=== PATIENT | female | born 1995 | race Caucasian/White ===

== ENCOUNTER 2016-04-17 22:25 | Emergency (ER) | payer OTHER ==
[~2016-04-17 22:25] MED LIST: ALBU83IN INH; COLA100C PO; MOTR200T44 PO; PULM0.25 INH; RANI1TAB6 PO; TUMS500C PO; TYLE500T78 PO; VITAPRTA PO; ZOFR20TA PO
[2016-04-17] MEDS ORDERED: ONDANSETRON 4 MG ORAL DISINTEGRATING TAB (S0181) As Ordered ONE (23:49)
--- NOTE | 2016-04-18 00:30 | EDDOCDS ---
Physician Documentation [facility] Name: Leila Sanchez Age: 20 yrs Sex: Female : 1995 Arrival Date: 04/17/2016 Time: 22:25 Bed TR7 Private MD: Zander Núñez Disposition: 04/17/16 23:43 Discharged to Home/Self Care. Impression: Vomiting, Diarrhea, unspecified. - Condition is Stable. - Discharge Instructions: Viral Gastroenteritis, [id number]. - Prescriptions for ZOFRAN ODT 4 mg - dissolve 1 tablet by ORAL route 4 times per day As needed do not chew, do not swallow whole; 10 tablet. - Medication Reconciliation, Local Pharmacy Hours form. - Follow up: Zander Núñez; When: 2 - 3 days; Reason: Further diagnostic work-up, Recheck today's complaints, Continuance of care. - Problem is new. - Symptoms are unchanged. Historical: - Allergies: Amoxicillin (Rash); Augmentin (Hives, Rash); cefdinir (Vomit); PENICILLINS (Rash); - Home Meds: 1. Strattera 60 mg oral cap 1 cap once daily 2. ranitidine HCl 150 mg Oral tbef daily 3. Depo-Provera 150 mg/mL IM syrg 1 mL every 3 mo 4. Ventolin Rotahaler/Rotacaps 200 mcg Inhl CpDv as needed 5. Pulmicort 0.5 mg/2 mL Inhl nbsp 2 mL 2 times per day - PMHx: ADHD; Asthma; GERD; - PSHx: Adenoidectomy; Tonsillectomy; D & C; Laparoscopy; - Social history: Smoking status: Patient uses tobacco products, light tobacco smoker. No barriers to communication noted, The patient speaks fluent Hebrew. - Family history: No immediate family members are acutely ill. - : The pt / caregiver states he / she is not on anticoagulants. Home medication list is obtained from the patient. - Exposure Risk Screening:: None identified. 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 4 in. (162.56 cm) (R); 22:27 Body Mass Index 35.36 (93.44 kg, 162.56 cm) dd6 MDM: 23:41 Ondansetron ODT Oral Disintegrating Tablet 4 mg PO once ordered. bt 04/18 00:13 Financial registration complete. ks16 00:13 [facility] Payment Agreement was scanned into [employer] and attached to record. ks16 Signatures: Paulina Box RN RN kmg1 Shanda Sawyer RN RN rs3 Segun Neville PA PA btw Olga Dinero, Reg Reg ks16 The chart was reviewed and I authenticate all verbal orders and agree with the evaluation and treatment provided.Attachments: 00:13 [facility] Payment Agreement ks16 MTDD
--- NOTE | 2016-04-18 00:30 | EDDOCDS ---
Nurse's Notes [facility] Name: Leila Sanchez Age: 20 yrs Sex: Female : 1995 Arrival Date: 04/17/2016 Time: 22:25 Bed TR7 Private MD: Zander Núñez Diagnosis: Vomiting;Diarrhea, unspecified Presentation: 04/17 22:28 Presenting complaint: Patient states: vomiting/diarrhea started 2 hrs ago. exposure to rs3 sick contact today. Adult Sepsis Screening: The patient does not have new or worsening altered mentation. Patient's respiratory rate is less than 22. Systolic blood pressure is greater than 100. Patient has a qSOFA score of 0- Negative Sepsis Screen. Suicide/Homicide risk assessment- the patient denies having any suicidal and/or homicidal ideations and does not present with any other emotional, behavioral or mental health complaints. Status: Patient is not a security services specialist or dependent. Transition of care: patient was not received from another setting of care. 22:28 Acuity: MANOHAR Level 4 rs3 22:28 Method Of Arrival: Walkin/Carried/Asstd rs3 Triage Assessment: 22:30 General: Appears in no apparent distress. Pain: Denies pain. HIV screening NA for this rs3 visit Offered previously. 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 Strattera 60 mg oral cap 1 cap once daily 2. ranitidine HCl 150 mg Oral tbef daily 3. Depo-Provera 150 mg/mL IM syrg 1 mL every 3 mo 4. Ventolin Rotahaler/Rotacaps 200 mcg Inhl CpDv as needed 5. Pulmicort 0.5 mg/2 mL Inhl nbsp 2 mL 2 times per day - PMHx: ADHD; Asthma; GERD; - PSHx: Adenoidectomy; Tonsillectomy; D & C; Laparoscopy; - Social history: Smoking status: Patient uses tobacco products, light tobacco smoker. No barriers to communication noted, The patient speaks fluent Arabic. - Family history: No immediate family members are acutely ill. - : The pt / caregiver states he / she is not on anticoagulants. Home medication list is obtained from the patient. - Exposure Risk Screening:: None identified. Screenin:52 Screening information is obtained from the patient. Fall risk: No risks identified. kmg1 Assistance ADL's: requires no assistance with activities of daily living. Abuse/DV Screen: The patient / caregiver reports he/she is: not in a situation that causes fear, pain or injury. Nutritional screening: No deficits noted. Advance Directives: There is no active DNR order. home support is adequate. Assessment: 23:52 General: Appears in no apparent distress, comfortable, Behavior is appropriate for age, kmg1 cooperative, pleasant. Pain: Denies pain. GI: Abdomen is non- distended Bowel sounds present X 4 quads. Abd is soft and non tender X 4 quads. Reports diarrhea, nausea, vomiting. Vital Signs: 22:27 BP 144 / 70; Pulse 111; Resp 18 S; Temp 97.8(O); Pulse Ox 99% on R/A; Weight 93.44 kg dd6 (R); Height 5 ft. 4 in. (162.56 cm) (R); 22:27 Body Mass Index 35.36 (93.44 kg, 162.56 cm) dd6 Vitals: 22:27 Log In Time: April 17, 2016 at 22:25. dd6 ED Course: 22:27 Patient visited by Declan Allison PCA. dd6 22:27 Zander Núñez is Private Physician. dd6 22:27 Patient moved to Waiting dd6 22:28 Patient moved to Pre RCE dd6 22:29 Triage Initiated rs3 23:40 Segun Neville PA is PHCP. btw 23:40 Ezra Andrea DO is Attending Physician. btw 23:40 Patient moved to Triage 2 btw 23:41 Patient visited by Segun Neville PA. btw 23:42 Zander Núñez is Referral Physician. btw 23:52 The patient / caregiver is instructed regarding the plan of care and ED course. kmg1 23:52 No IV's were initiated during this patient's visit. No procedures done that require kmg1 assistance. 23:58 Patient moved to [facility] km 04/18 00:13 [facility] Payment Agreement was scanned into [employer] and attached to record. ks16 Order Results: There are currently no results for this order. Outcome: 04/17 23:43 Discharge ordered by Provider. bt 23:52 Discharge Assessment: Patient awake, alert and oriented x 3. No cognitive and/or kmg1 functional deficits noted. Patient verbalized understanding of disposition instructions. Patient awake and alert. patient administered narcotics - no. The following High Risk Discharge criteria are identified: None. Discharged to home ambulatory. Condition: stable. Discharge instructions given to patient, Instructed on discharge instructions, follow up and referral plans. medication usage, diet, Demonstrated understanding of instructions, medications, Pt was receptive of discharge instructions/ teaching. Prescriptions given X 1. No special radiology studies were completed. Property sent home with patient. 04/18 00:29 Patient left the ED. [facility] Signatures: Paulina Box, RN RN kmg1 Declan Allison, GLAUCOMA SPECIALIST GLAUCOMA SPECIALIST dd6 Shanda Sawyer RN RN rs3 Segun Neville PA PA btw Olga Dinero, Reg Reg ks16 MTDD
--- NOTE | 2016-04-20 01:30 | EDDOCDS ---
Nurse's Notes [facility] [place] Name: Leila Sanchez Age: 20 yrs Sex: Female : 1995 Arrival Date: 04/17/2016 Time: 22:25 Bed TR7 Private MD: Zander Núñez Diagnosis: Vomiting;Diarrhea, unspecified Presentation: 04/17 22:28 Presenting complaint: Patient states: vomiting/diarrhea started 2 hrs ago. exposure to rs3 sick contact today. Adult Sepsis Screening: The patient does not have new or worsening altered mentation. Patient's respiratory rate is less than 22. Systolic blood pressure is greater than 100. Patient has a qSOFA score of 0- Negative Sepsis Screen. Suicide/Homicide risk assessment- the patient denies having any suicidal and/or homicidal ideations and does not present with any other emotional, behavioral or mental health complaints. Status: Patient is not a technical services specialist or dependent. Transition of care: patient was not received from another setting of care. 22:28 Acuity: MANOHAR Level 4 rs3 22:28 Method Of Arrival: Walkin/Carried/Asstd rs3 Triage Assessment: 22:30 General: Appears in no apparent distress. Pain: Denies pain. HIV screening NA for this rs3 visit Offered previously. 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 Strattera 60 mg oral cap 1 cap once daily 2. ranitidine HCl 150 mg Oral tbef daily 3. Depo-Provera 150 mg/mL IM syrg 1 mL every 3 mo 4. Ventolin Rotahaler/Rotacaps 200 mcg Inhl CpDv as needed 5. Pulmicort 0.5 mg/2 mL Inhl nbsp 2 mL 2 times per day - PMHx: ADHD; Asthma; GERD; - PSHx: Adenoidectomy; Tonsillectomy; D & C; Laparoscopy; - Social history: Smoking status: Patient uses tobacco products, light tobacco smoker. No barriers to communication noted, The patient speaks fluent Thai. - Family history: No immediate family members are acutely ill. - : The pt / caregiver states he / she is not on anticoagulants. Home medication list is obtained from the patient. - Exposure Risk Screening:: None identified. Screenin:52 Screening information is obtained from the patient. Fall risk: No risks identified. kmg1 Assistance ADL's: requires no assistance with activities of daily living. Abuse/DV Screen: The patient / caregiver reports he/she is: not in a situation that causes fear, pain or injury. Nutritional screening: No deficits noted. Advance Directives: There is no active DNR order. home support is adequate. Assessment: 23:52 General: Appears in no apparent distress, comfortable, Behavior is appropriate for age, kmg1 cooperative, pleasant. Pain: Denies pain. GI: Abdomen is non- distended Bowel sounds present X 4 quads. Abd is soft and non tender X 4 quads. Reports diarrhea, nausea, vomiting. Vital Signs: 22:27 BP 144 / 70; Pulse 111; Resp 18 S; Temp 97.8(O); Pulse Ox 99% on R/A; Weight 93.44 kg dd6 (R); Height 5 ft. 4 in. (162.56 cm) (R); 22:27 Body Mass Index 35.36 (93.44 kg, 162.56 cm) dd6 Vitals: 22:27 Log In Time: April 17, 2016 at 22:25. dd6 ED Course: 22:27 Patient visited by Declan Allison PCA. dd6 22:27 Zander Núñez is Private Physician. dd6 22:27 Patient moved to Waiting dd6 22:28 Patient moved to Pre RCE dd6 22:29 Triage Initiated rs3 23:40 Segun Neville PA is PHCP. btw 23:40 Ezra Andrea DO is Attending Physician. btw 23:40 Patient moved to Triage 2 btw 23:41 Patient visited by Segun Neville PA. btw 23:42 Zander Núñez is Referral Physician. btw 23:52 The patient / caregiver is instructed regarding the plan of care and ED course. kmg1 23:52 No IV's were initiated during this patient's visit. No procedures done that require kmg1 assistance. 23:58 Patient moved to [place] [id number] 04/18 00:13 [facility] Payment Agreement was scanned into [employer] and attached to record. ks16 21:00 T-Sheet-- Draft Copy was scanned into [employer] and attached to record. klr Order Results: There are currently no results for this order. Outcome: 04/17 23:43 Discharge ordered by Provider. [facility] 23:52 Discharge Assessment: Patient awake, alert and oriented x 3. No cognitive and/or kmg1 functional deficits noted. Patient verbalized understanding of disposition instructions. Patient awake and alert. patient administered narcotics - no. The following High Risk Discharge criteria are identified: None. Discharged to home ambulatory. Condition: stable. Discharge instructions given to patient, Instructed on discharge instructions, follow up and referral plans. medication usage, diet, Demonstrated understanding of instructions, medications, Pt was receptive of discharge instructions/ teaching. Prescriptions given X 1. No special radiology studies were completed. Property sent home with patient. 04/18 00:29 Patient left the ED. kmg1 Signatures: Paulina Box, RN RN kmg1 Declan Allison, PORTABLE SAWMILL OPERATOR PORTABLE SAWMILL OPERATOR dd6 Shanda SawyerRN RN rs3 Segun Neville PA PA btw Olga Dinero, Reg Reg ks16 Ceci Nath klr Chart Complete PAIGED
--- NOTE | 2016-04-20 01:30 | EDDOCDS ---
Physician Documentation [facility] Name: Leila Sanchez Age: 20 yrs Sex: Female : 1995 Arrival Date: 04/17/2016 Time: 22:25 Bed TR7 Private MD: Zander Núñez Disposition: 04/17/16 23:43 Discharged to Home/Self Care. Impression: Vomiting, Diarrhea, unspecified. - Condition is Stable. - Discharge Instructions: Viral Gastroenteritis, [id number]. - Prescriptions for ZOFRAN ODT 4 mg - dissolve 1 tablet by ORAL route 4 times per day As needed do not chew, do not swallow whole; 10 tablet. - Medication Reconciliation, Local Pharmacy Hours form. - Follow up: Zander Núñez; When: 2 - 3 days; Reason: Further diagnostic work-up, Recheck today's complaints, Continuance of care. - Problem is new. - Symptoms are unchanged. Historical: - Allergies: Amoxicillin (Rash); Augmentin (Hives, Rash); cefdinir (Vomit); PENICILLINS (Rash); - Home Meds: 1. Strattera 60 mg oral cap 1 cap once daily 2. ranitidine HCl 150 mg Oral tbef daily 3. Depo-Provera 150 mg/mL IM syrg 1 mL every 3 mo 4. Ventolin Rotahaler/Rotacaps 200 mcg Inhl CpDv as needed 5. Pulmicort 0.5 mg/2 mL Inhl nbsp 2 mL 2 times per day - PMHx: ADHD; Asthma; GERD; - PSHx: Adenoidectomy; Tonsillectomy; D & C; Laparoscopy; - Social history: Smoking status: Patient uses tobacco products, light tobacco smoker. No barriers to communication noted, The patient speaks fluent Hungarian. - Family history: No immediate family members are acutely ill. - : The pt / caregiver states he / she is not on anticoagulants. Home medication list is obtained from the patient. - Exposure Risk Screening:: None identified. 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 4 in. (162.56 cm) (R); 22:27 Body Mass Index 35.36 (93.44 kg, 162.56 cm) dd6 MDM: 23:41 Ondansetron ODT Oral Disintegrating Tablet 4 mg PO once ordered. bt 04/18 00:13 Financial registration complete. ks16 00:13 [facility] Payment Agreement was scanned into [employer] and attached to record. ks16 21:00 T-Sheet-- Draft Copy was scanned into [employer] and attached to record. klr Signatures: Paulina Box, RN RN kmg1 Shanda SawyerRN RN rs3 Segun Neville PA PA btw Olga Dinero, Reg Reg ks16 Ceci Nath The chart was reviewed and I authenticate all verbal orders and agree with the evaluation and treatment provided.Attachments: 00:13 [facility] Payment Agreement ks16 21:00 T-Sheet-- Draft Copy klr Chart Complete MTDD
--- NOTE | 2016-04-20 01:30 | EDDOCDS ---
Physician Documentation [facility] Name: Leila Sanchez Age: 20 yrs Sex: Female : 1995 Arrival Date: 04/17/2016 Time: 22:25 Bed TR7 Private MD: Zander Núñez Disposition: 04/17/16 23:43 Discharged to Home/Self Care. Impression: Vomiting, Diarrhea, unspecified. - Condition is Stable. - Discharge Instructions: Viral Gastroenteritis, [id number]. - Prescriptions for ZOFRAN ODT 4 mg - dissolve 1 tablet by ORAL route 4 times per day As needed do not chew, do not swallow whole; 10 tablet. - Medication Reconciliation, Local Pharmacy Hours form. - Follow up: Zander Núñez; When: 2 - 3 days; Reason: Further diagnostic work-up, Recheck today's complaints, Continuance of care. - Problem is new. - Symptoms are unchanged. Historical: - Allergies: Amoxicillin (Rash); Augmentin (Hives, Rash); cefdinir (Vomit); PENICILLINS (Rash); - Home Meds: 1. Strattera 60 mg oral cap 1 cap once daily 2. ranitidine HCl 150 mg Oral tbef daily 3. Depo-Provera 150 mg/mL IM syrg 1 mL every 3 mo 4. Ventolin Rotahaler/Rotacaps 200 mcg Inhl CpDv as needed 5. Pulmicort 0.5 mg/2 mL Inhl nbsp 2 mL 2 times per day - PMHx: ADHD; Asthma; GERD; - PSHx: Adenoidectomy; Tonsillectomy; D & C; Laparoscopy; - Social history: Smoking status: Patient uses tobacco products, light tobacco smoker. No barriers to communication noted, The patient speaks fluent Vietnamese. - Family history: No immediate family members are acutely ill. - : The pt / caregiver states he / she is not on anticoagulants. Home medication list is obtained from the patient. - Exposure Risk Screening:: None identified. 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 4 in. (162.56 cm) (R); 22:27 Body Mass Index 35.36 (93.44 kg, 162.56 cm) dd6 MDM: 23:41 Ondansetron ODT Oral Disintegrating Tablet 4 mg PO once ordered. bt 04/18 00:13 Financial registration complete. ks16 00:13 [facility] Payment Agreement was scanned into [employer] and attached to record. ks16 21:00 T-Sheet-- Draft Copy was scanned into [employer] and attached to record. klr Signatures: Paulina Box, RN RN kmg1 Shanda SawyerRN RN rs3 Segun Neville PA PA btw Olga Dinero, Reg Reg ks16 Ceci Nath The chart was reviewed and I authenticate all verbal orders and agree with the evaluation and treatment provided.Attachments: 00:13 [facility] Payment Agreement ks16 21:00 T-Sheet-- Draft Copy klr Chart Complete MTDD
== END 2016-04-18 00:29 | disposition home or self-care (01) ==
LOC: M ED 22:25
DX: R11.2 Nausea with vomiting, unspecified (principal); R19.7 Diarrhea, unspecified; K21.9 Gastro-esophageal reflux disease without esophagitis; F90.9 Attention-deficit hyperactivity disorder, unspecified type; J45.909 Unspecified asthma, uncomplicated; Z90.89 Acquired absence of other organs; F17.200 Nicotine dependence, unspecified, uncomplicated; Z79.3 Long term (current) use of hormonal contraceptives; Z79.51 Long term (current) use of inhaled steroids; Z79.899 Other long term (current) drug therapy; Z88.1 Allergy status to other antibiotic agents; Z88.8 Allergy status to other drugs, medicaments and biological substances

== ENCOUNTER 2016-04-26 23:24 | Emergency (ER) | payer OTHER ==
[2016-04-27] MEDS ORDERED: ONDANSETRON 4 MG ORAL DISINTEGRATING TAB (S0181) As Ordered ONE (01:36)
[2016-04-27] MEDS ORDERED: DOXYCYCLINE HYCLATE 100 MG TAB As Ordered ONE (02:14)
--- NOTE | 2016-04-27 02:50 | EDDOCDS ---
Physician Documentation [facility] Name: Leila Sanchez Age: 20 yrs Sex: Female : 1995 Arrival Date: 04/26/2016 Time: 23:24 Bed I3 / M3 Private MD: Amol Hernandez Disposition: 04/27/16 02:38 Discharged to Home/Self Care. Impression: Other acute sinusitis, Vomiting. - Condition is Stable. - Discharge Instructions: Nausea and Vomiting, Sinusitis, Adult. - Prescriptions for Doxycycline Monohydrate 100 mg Oral Tablet - take 1 tablet by ORAL route every 12 hours for 10 days; 20 tablet. ZOFRAN ODT 4 mg - dissolve 1 tablet by ORAL route 4 times per day As needed do not chew, do not swallow whole; 10 tablet. Fluticasone 50 mcg/actuation Nasal [place], Suspension - inhale 2 spray by INTRANASAL route once daily; 1 bottle. - Medication Reconciliation, Local Pharmacy Hours form. - Follow up: [facility] ; When: 2 - 3 days; Reason: Recheck today's complaints, Continuance of care. - Problem is new. - Symptoms have improved. - Notes: USE MEDICATIONS INSTRUCTED, FOLLOW UP WITH YOUR DOCTOR, RETURN TO THE ER IF THE SYMPTOMS WORSEN OR BECOME CONCERNING Historical: - Allergies: Amoxicillin (Rash); Augmentin (Hives, Rash); cefdinir (Vomit); PENICILLINS (Rash); - Home Meds: 1. Depo-Provera 150 mg/mL IM syrg 1 mL every 3 mo 2. ranitidine HCl 150 mg oral tab 1 tab once daily 3. Strattera 60 mg oral cap 1 cap once daily 4. abreva inhaler 5. Zoloft 50 mg Oral tab 1 tab once daily 6. Ventolin Rotahaler/Rotacaps 200 mcg Inhl CpDv as needed 7. Vitamin Oral tab - PMHx: ADHD; Asthma; GERD; - PSHx: Adenoidectomy; Tonsillectomy; D & C; Laparoscopy; - Social history: Smoking status: Patient uses tobacco products, current every day smoker. No barriers to communication noted, The patient speaks fluent [place]ican, Speaks appropriately for age, Preferred Language: [place]ican. - Family history: Not pertinent. - : The pt / caregiver states he / she is not on anticoagulants. Home medication list is obtained from the patient. - Exposure Risk Screening:: None identified. 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 4 in. (162.56 cm) (R); Pain 0/10; 04/27 01:44 BP 119 / 60 Supine; Pulse 73; Resp 18; Pulse Ox 96% on R/A; jmb 01:44 BP 125 / 69 Sitting; Pulse 88; Resp 18; Pulse Ox 98% on R/A; jmb 01:44 BP 137 / 63 Standing; Pulse 86; Resp 18; Pulse Ox 97% on R/A; jmb 02:40 BP 134 / 71; Pulse 84; Resp 18; Temp 98.9; Pulse Ox 98% ; Pain 0/10; ajs 04/26 23:26 Body Mass Index 35.36 (93.44 kg, 162.56 cm) ct3 MDM: 01:29 Financial registration complete. pm4 01:32 UCG by Nursing ordered. ck7 01:32 Orthostatic VS ordered. ck7 01:35 Ondansetron ODT Oral Disintegrating Tablet 4 mg PO once ordered. ck7 02:01 Fluid Challenge ordered. ck7 02:12 Doxycycline 100 mg PO once ordered. ck7 02:32 Ambulate Patient to Assess Patient Safety ordered. ck7 02:37 [facility] Payment Agreement was scanned into [employer] and attached to record. pm4 Point of Care Testing: Urine : 01:47 hCG Reading: Negative; Control Reading: Positive; slm Ranges: Administered Medications: 01:35 CANCELLED (Other Intervention Used): Ondansetron 4 mg IVP once ck7 01:38 Drug: Ondansetron ODT 4 mg [ondansetron 4 mg disintegrating tablet (1 tabs)] Route: PO; slm 02:16 Drug: Doxycycline 100 mg [doxycycline hyclate 100 mg tablet (1 tabs)] Route: PO; jmb Signatures: Linda Palacio RN RN lf1 Alexander Lau RPA-C RPA-[facility]7 Joshua Beltran,RN RN Chris Stephens, Reg Reg pm4 Adelaide Aldrich LPN The chart was reviewed and I authenticate all verbal orders and agree with the evaluation and treatment provided.Corrections: (The following items were deleted from the chart) 01:35 01:32 Ondansetron 4 mg IVP once ordered. ck7 ck7 Attachments: 02:37 [facility] Payment Agreement pm4 MTDD
--- NOTE | 2016-04-27 02:51 | EDDOCDS ---
Nurse's Notes [facility] Name: Leila Sanchez Age: 20 yrs Sex: Female : 1995 Arrival Date: 04/26/2016 Time: 23:24 Bed I3 / M3 Private MD: Amol Hernandez Diagnosis: Other acute sinusitis;Vomiting Presentation: 04/26 23:33 Presenting complaint: Patient states: Pt reports dizziness, and pain in right ear with lf1 shakiness and vomiting that started 45 minutes ago. No abdominal pain or shortness of breath. Presenting complaint:. Adult Sepsis Screening: The patient does not have new or worsening altered mentation. Patient's respiratory rate is less than 22. Systolic blood pressure is greater than 100. Patient has a qSOFA score of 0- Negative Sepsis Screen. Suicide/Homicide risk assessment- the patient denies having any suicidal and/or homicidal ideations and does not present with any other emotional, behavioral or mental health complaints. 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 Transition of care: patient was not received from another setting of care. 23:33 Acuity: MANOHAR Level 4 lf1 23:33 Method Of Arrival: Walkin/Carried/Asstd lf1 Triage Assessment: 23:37 General: Appears in no apparent distress, comfortable, Behavior is cooperative. Pain: lf1 Location: right ear Pain currently is 4 out of 10 on a pain scale. HIV screening NA for this visit Offered previously. Neurological: Level of Consciousness is awake, alert, Oriented to person, place, time, Reports dizziness. EENT: Reports pain in right ear. Respiratory: Respiratory effort is even, unlabored. GI: Reports nausea. Derm: Skin is normal. Injury Description: No known injury. 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 Depo-Provera 150 mg/mL IM syrg 1 mL every 3 mo 2. ranitidine HCl 150 mg oral tab 1 tab once daily 3. Strattera 60 mg oral cap 1 cap once daily 4. abreva inhaler 5. Zoloft 50 mg Oral tab 1 tab once daily 6. Ventolin Rotahaler/Rotacaps 200 mcg Inhl CpDv as needed 7. Vitamin Oral tab - PMHx: ADHD; Asthma; GERD; - PSHx: Adenoidectomy; Tonsillectomy; D & C; Laparoscopy; - Social history: Smoking status: Patient uses tobacco products, current every day smoker. No barriers to communication noted, The patient speaks fluent Tunisian, Speaks appropriately for age, Preferred Language: Tunisian. - Family history: Not pertinent. - : The pt / caregiver states he / she is not on anticoagulants. Home medication list is obtained from the patient. - Exposure Risk Screening:: None identified. Screenin:39 Screening information is obtained from the patient. Fall risk: No risks identified. lf1 Assistance ADL's: requires no assistance with activities of daily living. Abuse/DV Screen: The patient / caregiver reports he/she is: not in a situation that causes fear, pain or injury. Nutritional screening: No deficits noted. Advance Directives: Currently, there is no health care proxy. home support is adequate. Assessment: 04/27 01:47 General: Appears in no apparent distress, comfortable, Behavior is appropriate for age, jmb cooperative. Neurological: Level of Consciousness is awake, alert, obeys commands, Oriented to person, place, time, Speech is normal, Facial symmetry appears normal, Facial symmetry: tongue is midline. Cardiovascular: Capillary refill < 3 seconds Heart tones S1 S2 present Pulses are all present. Rhythm is regular. Respiratory: Airway is patent Respiratory effort is even, unlabored, Respiratory pattern is regular, symmetrical, Breath sounds are clear bilaterally. GI: Abdomen is obese, Bowel sounds present X 4 quads. Abd is soft and non tender X 4 quads. Derm: Skin is pink, warm & dry. Musculoskeletal: Range of motion intact in all extremities. 02:43 Adult Sepsis Screening: The patient does not have new or worsening altered mentation. lf1 Patient's respiratory rate is less than 22. Systolic blood pressure is greater than 100. Patient has a qSOFA score of 0- Negative Sepsis Screen. General: Appears in no apparent distress, comfortable, Behavior is cooperative, First patient contact. Pain: Denies pain. Neurological: Level of Consciousness is awake, alert, Oriented to person, place, time. EENT: No deficits noted. Respiratory: Respiratory effort is even, unlabored. GI: Denies nausea, vomiting. Derm: Skin is normal. Injury Description: No known injury. Vital Signs: 04/26 23:26 BP 144 / 71; Pulse 96; Resp 18; Temp 98.9(O); Pulse Ox 99% on R/A; Weight 93.44 kg (R); ct3 Height 5 ft. 4 in. (162.56 cm) (R); Pain 0/10; 04/27 01:44 BP 119 / 60 Supine; Pulse 73; Resp 18; Pulse Ox 96% on R/A; jmb 01:44 BP 125 / 69 Sitting; Pulse 88; Resp 18; Pulse Ox 98% on R/A; jmb 01:44 BP 137 / 63 Standing; Pulse 86; Resp 18; Pulse Ox 97% on R/A; jmb 02:40 BP 134 / 71; Pulse 84; Resp 18; Temp 98.9; Pulse Ox 98% ; Pain 0/10; ajs 04/26 23:26 Body Mass Index 35.36 (93.44 kg, 162.56 cm) ct3 Vitals: 04/26 23:26 Log In Time: April 26, 2016 at 23:23. ct3 ED Course: 23:25 Patient visited by Shanna Wynn PCA. ct3 23:25 Patient moved to Waiting ct3 23:26 [facility] is Private Physician. ct3 23:27 Patient moved to Pre RCE ct3 23:35 Triage Initiated lf1 02/07 00:02 Patient moved to MTA Wait sls1 00:36 Patient moved to I3 / M3 ajs 01:09 Alexander Lau RPA-C is PHCP. ck7 01:09 Bernard David DO is Attending Physician. ck7 01:09 Patient visited by Alexander Lau RPA-C. ck7 01:46 Patient visited by Alexander Lau RPA-C. ck7 01:47 Patient visited by Adelaide Aldrich LPN. slm 02:31 Patient visited by Alexander Lau RPA-C. ck7 02:37 [facility] Payment Agreement was scanned into [employer] and attached to record. pm4 02:38 [facility] is Referral Physician. ck7 02:41 Patient visited by Michelle Mccormack. ajs 02:43 Patient visited by Linda Palacio RN. lf1 02:43 The patient / caregiver is instructed regarding the plan of care and ED course. lf1 02:43 No IV's were initiated during this patient's visit. No procedures done that require lf1 assistance. Administered Medications: 01:35 CANCELLED (Other Intervention Used): Ondansetron 4 mg IVP once ck7 01:38 Drug: Ondansetron ODT 4 mg [ondansetron 4 mg disintegrating tablet (1 tabs)] Route: PO; slm 02:16 Drug: Doxycycline 100 mg [doxycycline hyclate 100 mg tablet (1 tabs)] Route: PO; bill Point of Care Testing: Urine : 01:47 hCG Reading: Negative; Control Reading: Positive; slm Ranges: Order Results: There are currently no results for this order. Outcome: 02:38 Discharge ordered by Provider. ck7 02:43 Discharge Assessment: Patient awake, alert and oriented x 3. No cognitive and/or lf1 functional deficits noted. Patient verbalized understanding of disposition instructions. Patient awake and alert. Oriented to person, place and time. Patient verbalized understanding of disposition instructions. Patient has no functional deficits. patient administered narcotics - no. The following High Risk Discharge criteria are identified: None. Discharged to home ambulatory, Medicaid Cab. Condition: improved. Discharge instructions given to patient, Instructed on discharge instructions, follow up and referral plans. medication usage, diet, Demonstrated understanding of instructions, medications, Pt was receptive of discharge instructions/ teaching. Prescriptions given X 3. No special radiology studies were completed. Property :Personal belongings accompany Pt. 02:50 Patient left the ED. bill Signatures: Linda Palacio,RN RN lf1 Shanna Wynn, INSPECTION ENGINEER INSPECTION ENGINEER ct3 Michelle Mccormack Shannon RN RN sls1 Alexander Lau, RPA-C RPA-Cck7 Joshua BeltranRN RN Adelaide Warren LPN LPN [facility] Chris Garibay, Reg Reg pm4 MTDD
--- NOTE | 2016-04-29 03:50 | EDDOCDS ---
Physician Documentation [facility] Name: Leila Sanchez Age: 20 yrs Sex: Female : 1995 Arrival Date: 04/26/2016 Time: 23:24 Bed I3 / M3 Private MD: Amol Hernandez Disposition: 04/27/16 02:38 Discharged to Home/Self Care. Impression: Other acute sinusitis, Vomiting. - Condition is Stable. - Discharge Instructions: Nausea and Vomiting, Sinusitis, Adult. - Prescriptions for Doxycycline Monohydrate 100 mg Oral Tablet - take 1 tablet by ORAL route every 12 hours for 10 days; 20 tablet. ZOFRAN ODT 4 mg - dissolve 1 tablet by ORAL route 4 times per day As needed do not chew, do not swallow whole; 10 tablet. Fluticasone 50 mcg/actuation Nasal [place], Suspension - inhale 2 spray by INTRANASAL route once daily; 1 bottle. - Medication Reconciliation, Local Pharmacy Hours form. - [facility] ; When: 2 - 3 days; Reason: Recheck today's complaints, Continuance of care. - Problem is new. - Symptoms have improved. - Notes: USE MEDICATIONS INSTRUCTED, FOLLOW UP WITH YOUR DOCTOR, RETURN TO THE ER IF THE SYMPTOMS WORSEN OR BECOME CONCERNING Historical: - Allergies: Amoxicillin (Rash); Augmentin (Hives, Rash); cefdinir (Vomit); PENICILLINS (Rash); - Home Meds: 1. Depo-Provera 150 mg/mL IM syrg 1 mL every 3 mo 2. ranitidine HCl 150 mg oral tab 1 tab once daily 3. Strattera 60 mg oral cap 1 cap once daily 4. abreva inhaler 5. Zoloft 50 mg Oral tab 1 tab once daily 6. Ventolin Rotahaler/Rotacaps 200 mcg Inhl CpDv as needed 7. Vitamin Oral tab - PMHx: ADHD; Asthma; GERD; - PSHx: Adenoidectomy; Tonsillectomy; D & C; Laparoscopy; - Social history: Smoking status: Patient uses tobacco products, current every day smoker. No barriers to communication noted, The patient speaks fluent Iraqi, Speaks appropriately for age, Preferred Language: Iraqi. - Family history: Not pertinent. - : The pt / caregiver states he / she is not on anticoagulants. Home medication list is obtained from the patient. - Exposure Risk Screening:: None identified. 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 4 in. (162.56 cm) (R); Pain 0/10; 04/27 01:44 BP 119 / 60 Supine; Pulse 73; Resp 18; Pulse Ox 96% on R/A; jmb 01:44 BP 125 / 69 Sitting; Pulse 88; Resp 18; Pulse Ox 98% on R/A; jmb 01:44 BP 137 / 63 Standing; Pulse 86; Resp 18; Pulse Ox 97% on R/A; jmb 02:40 BP 134 / 71; Pulse 84; Resp 18; Temp 98.9; Pulse Ox 98% ; Pain 0/10; ajs 04/26 23:26 Body Mass Index 35.36 (93.44 kg, 162.56 cm) ct3 MDM: 01:29 Financial registration complete. pm4 01:32 UCG by Nursing ordered. ck7 01:32 Orthostatic VS ordered. ck7 01:35 Ondansetron ODT Oral Disintegrating Tablet 4 mg PO once ordered. ck7 02:01 Fluid Challenge ordered. ck7 02:12 Doxycycline 100 mg PO once ordered. ck7 02:32 Ambulate Patient to Assess Patient Safety ordered. ck7 02:37 [facility] [place] was scanned into [employer] and attached to record. pm4 11:50 T-Sheet-- Draft Copy was scanned into [employer] and attached to record. gb Point of Care Testing: Urine : 01:47 hCG Reading: Negative; Control Reading: Positive; slm Ranges: Administered Medications: 01:35 CANCELLED (Other Intervention Used): Ondansetron 4 mg IVP once ck7 01:38 Drug: Ondansetron ODT 4 mg [ondansetron 4 mg disintegrating tablet (1 tabs)] Route: PO; slm 02:16 Drug: Doxycycline 100 mg [doxycycline hyclate 100 mg tablet (1 tabs)] Route: PO; jmb Signatures: Frannie Wisdom, Reg Reg gb Linda Palacio,RN RN lf1 Alexander Lau, RPA-C RPA-Cck7 Joshua Beltran,RN RN jmb Chris Garibay, Reg Reg pm4 Adelaide Aldrich LPN The chart was reviewed and I authenticate all verbal orders and agree with the evaluation and treatment provided.Corrections: (The following items were deleted from the chart) 01:35 01:32 Ondansetron 4 mg IVP once ordered. ck7 ck7 Attachments: 02:37 [facility] [place] pm4 11:50 T-Sheet-- Draft Copy gb Chart Complete MTDD
--- NOTE | 2016-04-29 03:50 | EDDOCDS ---
Nurse's Notes [facility] Name: Leila Sanchez Age: 20 yrs Sex: Female : 1995 Arrival Date: 04/26/2016 Time: 23:24 Bed I3 / M3 Private MD: Amol Hernandez Diagnosis: Other acute sinusitis;Vomiting Presentation: 04/26 23:33 Presenting complaint: Patient states: Pt reports dizziness, and pain in right ear with lf1 shakiness and vomiting that started 45 minutes ago. No abdominal pain or shortness of breath. Presenting complaint:. Adult Sepsis Screening: The patient does not have new or worsening altered mentation. Patient's respiratory rate is less than 22. Systolic blood pressure is greater than 100. Patient has a qSOFA score of 0- Negative Sepsis Screen. Suicide/Homicide risk assessment- the patient denies having any suicidal and/or homicidal ideations and does not present with any other emotional, behavioral or mental health complaints. Status: Patient is not a personal service representative or dependent. Transition of care: patient was not received from another setting of care. 23:33 Acuity: MANOHAR Level 4 lf1 23:33 Method Of Arrival: Walkin/Carried/Asstd lf1 Triage Assessment: 23:37 General: Appears in no apparent distress, comfortable, Behavior is cooperative. Pain: lf1 Location: right ear Pain currently is 4 out of 10 on a pain scale. HIV screening NA for this visit Offered previously. Neurological: Level of Consciousness is awake, alert, Oriented to person, place, time, Reports dizziness. EENT: Reports pain in right ear. Respiratory: Respiratory effort is even, unlabored. GI: Reports nausea. Derm: Skin is normal. Injury Description: No known injury. 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 Depo-Provera 150 mg/mL IM syrg 1 mL every 3 mo 2. ranitidine HCl 150 mg oral tab 1 tab once daily 3. Strattera 60 mg oral cap 1 cap once daily 4. abreva inhaler 5. Zoloft 50 mg Oral tab 1 tab once daily 6. Ventolin Rotahaler/Rotacaps 200 mcg Inhl CpDv as needed 7. Vitamin Oral tab - PMHx: ADHD; Asthma; GERD; - PSHx: Adenoidectomy; Tonsillectomy; D & C; Laparoscopy; - Social history: Smoking status: Patient uses tobacco products, current every day smoker. No barriers to communication noted, The patient speaks fluent Algerian, Speaks appropriately for age, Preferred Language: Algerian. - Family history: Not pertinent. - : The pt / caregiver states he / she is not on anticoagulants. Home medication list is obtained from the patient. - Exposure Risk Screening:: None identified. Screenin:39 Screening information is obtained from the patient. Fall risk: No risks identified. lf1 Assistance ADL's: requires no assistance with activities of daily living. Abuse/DV Screen: The patient / caregiver reports he/she is: not in a situation that causes fear, pain or injury. Nutritional screening: No deficits noted. Advance Directives: Currently, there is no health care proxy. home support is adequate. Assessment: 04/27 01:47 General: Appears in no apparent distress, comfortable, Behavior is appropriate for age, jmb cooperative. Neurological: Level of Consciousness is awake, alert, obeys commands, Oriented to person, place, time, Speech is normal, Facial symmetry appears normal, Facial symmetry: tongue is midline. Cardiovascular: Capillary refill < 3 seconds Heart tones S1 S2 present Pulses are all present. Rhythm is regular. Respiratory: Airway is patent Respiratory effort is even, unlabored, Respiratory pattern is regular, symmetrical, Breath sounds are clear bilaterally. GI: Abdomen is obese, Bowel sounds present X 4 quads. Abd is soft and non tender X 4 quads. Derm: Skin is pink, warm & dry. Musculoskeletal: Range of motion intact in all extremities. 02:43 Adult Sepsis Screening: The patient does not have new or worsening altered mentation. lf1 Patient's respiratory rate is less than 22. Systolic blood pressure is greater than 100. Patient has a qSOFA score of 0- Negative Sepsis Screen. General: Appears in no apparent distress, comfortable, Behavior is cooperative, First patient contact. Pain: Denies pain. Neurological: Level of Consciousness is awake, alert, Oriented to person, place, time. EENT: No deficits noted. Respiratory: Respiratory effort is even, unlabored. GI: Denies nausea, vomiting. Derm: Skin is normal. Injury Description: No known injury. Vital Signs: 04/26 23:26 BP 144 / 71; Pulse 96; Resp 18; Temp 98.9(O); Pulse Ox 99% on R/A; Weight 93.44 kg (R); ct3 Height 5 ft. 4 in. (162.56 cm) (R); Pain 0/10; 04/27 01:44 BP 119 / 60 Supine; Pulse 73; Resp 18; Pulse Ox 96% on R/A; jmb 01:44 BP 125 / 69 Sitting; Pulse 88; Resp 18; Pulse Ox 98% on R/A; jmb 01:44 BP 137 / 63 Standing; Pulse 86; Resp 18; Pulse Ox 97% on R/A; jmb 02:40 BP 134 / 71; Pulse 84; Resp 18; Temp 98.9; Pulse Ox 98% ; Pain 0/10; ajs 04/26 23:26 Body Mass Index 35.36 (93.44 kg, 162.56 cm) ct3 Vitals: 04/26 23:26 Log In Time: April 26, 2016 at 23:23. ct3 ED Course: 23:25 Patient visited by Shanna Wynn PCA. ct3 23:25 Patient moved to Waiting ct3 23:26 [facility] is Private Physician. ct3 23:27 Patient moved to Pre RCE ct3 23:35 Triage Initiated lf1 02/07 00:02 Patient moved to MTA Wait sls1 00:36 Patient moved to I3 / M3 ajs 01:09 Alexander Lau RPA-C is PHCP. ck7 01:09 Bernard David DO is Attending Physician. ck7 01:09 Patient visited by Alexander Lau RPA-C. ck7 01:46 Patient visited by Alexander Lau RPA-C. ck7 01:47 Patient visited by Adelaide Aldrich LPN. slm 02:31 Patient visited by Alexander Lau RPA-C. ck7 02:37 [facility] Payment Agreement was scanned into [employer] and attached to record. pm4 02:38 [facility] is Referral Physician. ck7 02:41 Patient visited by Michelle Mccormack. ajs 02:43 Patient visited by Linda Palacio,RN. lf1 02:43 The patient / caregiver is instructed regarding the plan of care and ED course. lf1 02:43 No IV's were initiated during this patient's visit. No procedures done that require lf1 assistance. 11:50 T-Sheet-- Draft Copy was scanned into [employer] and attached to record. gb Administered Medications: 01:35 CANCELLED (Other Intervention Used): Ondansetron 4 mg IVP once ck7 01:38 Drug: Ondansetron ODT 4 mg [ondansetron 4 mg disintegrating tablet (1 tabs)] Route: PO; slm 02:16 Drug: Doxycycline 100 mg [doxycycline hyclate 100 mg tablet (1 tabs)] Route: PO; bill Point of Care Testing: Urine : 01:47 hCG Reading: Negative; Control Reading: Positive; slm Ranges: Order Results: There are currently no results for this order. Outcome: 02:38 Discharge ordered by Provider. ck7 02:43 Discharge Assessment: Patient awake, alert and oriented x 3. No cognitive and/or lf1 functional deficits noted. Patient verbalized understanding of disposition instructions. Patient awake and alert. Oriented to person, place and time. Patient verbalized understanding of disposition instructions. Patient has no functional deficits. patient administered narcotics - no. The following High Risk Discharge criteria are identified: None. Discharged to home ambulatory, Medicaid Cab. Condition: improved. Discharge instructions given to patient, Instructed on discharge instructions, follow up and referral plans. medication usage, diet, Demonstrated understanding of instructions, medications, Pt was receptive of discharge instructions/ teaching. Prescriptions given X 3. No special radiology studies were completed. Property :Personal belongings accompany Pt. 02:50 Patient left the ED. b Signatures: Frannie Wisdom, Reg Reg gb Linda Palacio,RN RN lf1 Shanna Wynn, MATCHER OPERATOR MATCHER OPERATOR ct3 Michelle Mccormack Shannon, RN RN sls1 Alexander Lau, RPA-C RPA-Cck7 Joshua Beltran RN RN b Adelaide Aldrich,LABOR CREW SUPERVISOR LABOR CREW SUPERVISOR sl Chris Garibay, Reg Reg pm4 Chart Complete MTDD
--- NOTE | 2016-04-29 03:50 | EDDOCDS ---
Physician Documentation [facility] Name: Leila Sanchez Age: 20 yrs Sex: Female : 1995 Arrival Date: 04/26/2016 Time: 23:24 Bed I3 / M3 Private MD: Amol Hernandez Disposition: 04/27/16 02:38 Discharged to Home/Self Care. Impression: Other acute sinusitis, Vomiting. - Condition is Stable. - Discharge Instructions: Nausea and Vomiting, Sinusitis, Adult. - Prescriptions for Doxycycline Monohydrate 100 mg Oral Tablet - take 1 tablet by ORAL route every 12 hours for 10 days; 20 tablet. ZOFRAN ODT 4 mg - dissolve 1 tablet by ORAL route 4 times per day As needed do not chew, do not swallow whole; 10 tablet. Fluticasone 50 mcg/actuation Nasal [place], Suspension - inhale 2 spray by INTRANASAL route once daily; 1 bottle. - Medication Reconciliation, Local Pharmacy Hours form. - [facility] ; When: 2 - 3 days; Reason: Recheck today's complaints, Continuance of care. - Problem is new. - Symptoms have improved. - Notes: USE MEDICATIONS INSTRUCTED, FOLLOW UP WITH YOUR DOCTOR, RETURN TO THE ER IF THE SYMPTOMS WORSEN OR BECOME CONCERNING Historical: - Allergies: Amoxicillin (Rash); Augmentin (Hives, Rash); cefdinir (Vomit); PENICILLINS (Rash); - Home Meds: 1. Depo-Provera 150 mg/mL IM syrg 1 mL every 3 mo 2. ranitidine HCl 150 mg oral tab 1 tab once daily 3. Strattera 60 mg oral cap 1 cap once daily 4. abreva inhaler 5. Zoloft 50 mg Oral tab 1 tab once daily 6. Ventolin Rotahaler/Rotacaps 200 mcg Inhl CpDv as needed 7. Vitamin Oral tab - PMHx: ADHD; Asthma; GERD; - PSHx: Adenoidectomy; Tonsillectomy; D & C; Laparoscopy; - Social history: Smoking status: Patient uses tobacco products, current every day smoker. No barriers to communication noted, The patient speaks fluent Moroccan, Speaks appropriately for age, Preferred Language: Moroccan. - Family history: Not pertinent. - : The pt / caregiver states he / she is not on anticoagulants. Home medication list is obtained from the patient. - Exposure Risk Screening:: None identified. 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 4 in. (162.56 cm) (R); Pain 0/10; 04/27 01:44 BP 119 / 60 Supine; Pulse 73; Resp 18; Pulse Ox 96% on R/A; jmb 01:44 BP 125 / 69 Sitting; Pulse 88; Resp 18; Pulse Ox 98% on R/A; jmb 01:44 BP 137 / 63 Standing; Pulse 86; Resp 18; Pulse Ox 97% on R/A; jmb 02:40 BP 134 / 71; Pulse 84; Resp 18; Temp 98.9; Pulse Ox 98% ; Pain 0/10; ajs 04/26 23:26 Body Mass Index 35.36 (93.44 kg, 162.56 cm) ct3 MDM: 01:29 Financial registration complete. pm4 01:32 UCG by Nursing ordered. ck7 01:32 Orthostatic VS ordered. ck7 01:35 Ondansetron ODT Oral Disintegrating Tablet 4 mg PO once ordered. ck7 02:01 Fluid Challenge ordered. ck7 02:12 Doxycycline 100 mg PO once ordered. ck7 02:32 Ambulate Patient to Assess Patient Safety ordered. ck7 02:37 [facility] [place] was scanned into [employer] and attached to record. pm4 11:50 T-Sheet-- Draft Copy was scanned into [employer] and attached to record. gb Point of Care Testing: Urine : 01:47 hCG Reading: Negative; Control Reading: Positive; slm Ranges: Administered Medications: 01:35 CANCELLED (Other Intervention Used): Ondansetron 4 mg IVP once ck7 01:38 Drug: Ondansetron ODT 4 mg [ondansetron 4 mg disintegrating tablet (1 tabs)] Route: PO; slm 02:16 Drug: Doxycycline 100 mg [doxycycline hyclate 100 mg tablet (1 tabs)] Route: PO; jmb Signatures: Frannie Wisdom, Reg Reg gb Linda Palacio,RN RN lf1 Alexander Lau, RPA-C RPA-Cck7 Joshua Beltran,RN RN jmb Chris Garibay, Reg Reg pm4 Adelaide Aldrich LPN The chart was reviewed and I authenticate all verbal orders and agree with the evaluation and treatment provided.Corrections: (The following items were deleted from the chart) 01:35 01:32 Ondansetron 4 mg IVP once ordered. ck7 ck7 Attachments: 02:37 [facility] [place] pm4 11:50 T-Sheet-- Draft Copy gb Chart Complete MTDD
== END 2016-04-27 02:50 | disposition home or self-care (01) ==
LOC: M ED 23:24
DX: J01.90 Acute sinusitis, unspecified (principal); R11.10 Vomiting, unspecified; F90.9 Attention-deficit hyperactivity disorder, unspecified type; K21.9 Gastro-esophageal reflux disease without esophagitis; J45.909 Unspecified asthma, uncomplicated; Z72.0 Tobacco use; Z79.3 Long term (current) use of hormonal contraceptives; Z79.899 Other long term (current) drug therapy; Z88.0 Allergy status to penicillin; Z88.1 Allergy status to other antibiotic agents

== ENCOUNTER → 2016-05-06 | Outpatient (REF) | payer OTHER | LOC: M SFHCLERA 16:34 | PROVIDERS: ATTEND Family Medicine | DX: L98.9 Disorder of the skin and subcutaneous tissue, unspecified (principal) ==

== ENCOUNTER 2016-05-22 16:45 | Emergency (ER) | payer OTHER ==
[~2016-05-22] VITALS: Ht 162.6 cm; Wt 93.4 kg
[2016-05-22] MEDS ORDERED: BREO1INH INH (16:58)
[2016-05-22] MEDS ORDERED: NS 1,000 ML IV SCH (17:16)
[2016-05-22] MEDS ORDERED: ONDANSETRON 4MG/2ML VIAL (J2405) IV ONE (17:30)
[2016-05-22 17:55] LABS: BASO % 0.5 % (0.0-1.0); EOS # 0.1 K/mm3 (0.0-0.50); EOS % 0.8 % (0.0-3.0); LARGE UNSTAINED CELL # 0.2 K/mm3 (0.0-0.4); LARGE UNSTAINED CELL % 2.4 % (0.0-4.0); LYMPH # 2.1 K/mm3 (1.5-6.5); LYMPH % 22.4 % (24.0-44.0); MEAN CORPUSCULAR HEMOGLOBIN 24.6 pg (27.0-33.0); MEAN CORPUSCULAR HGB CONC 32.1 g/dl (32.0-36.5); MEAN CORPUSCULAR VOLUME 76.5 fl (80.0-96.0); MONO # 0.5 K/mm3 (0.0-0.8); MONO % 4.8 % (0.0-5.0); NEUTROPHILS # 6.6 K/mm3 (1.8-7.7); NEUTROPHILS % 69.2 % (36.0-66.0); PLATELET COUNT, AUTOMATED 398 k/mm3 (150-450); RED CELL DISTRIBUTION WIDTH 14.7 % (11.5-14.5); WHITE BLOOD COUNT 9.5 K/mm3 (4.0-10.0)
[2016-05-22] MEDS ORDERED: GASTROGRAFIN SOLUTION 30ML (Q9963) PO ONE ×2 (18:30→19:00)
[2016-05-22 19:04] LABS: ALBUMIN 3.8 GM/DL (3.2-5.2); ALBUMIN/GLOBULIN RATIO 1.15 (1.00-1.93); ALKALINE PHOSPHATASE 89 U/L (45-117); ALT/SGPT 20 U/L (12-78); ANION GAP 7 MEQ/L (8-16); AST/SGOT 16 U/L (15-37); BILIRUBIN,DIRECT 0.1 MG/DL (0.0-0.2); BILIRUBIN,TOTAL 0.4 MG/DL (0.2-1.0); BLOOD UREA NITROGEN 13 MG/DL (7-18); CARBON DIOXIDE LEVEL 27 MEQ/L (21-32); CHLORIDE LEVEL 110 MEQ/L (98-107); CREATININE FOR GFR 0.99 MG/DL (0.55-1.02); GLOMERULAR FILTRATION RATE > 60.0 (>60); GLUCOSE, FASTING 80 MG/DL (70-105); POTASSIUM SERUM 4.4 MEQ/L (3.5-5.1); SODIUM LEVEL 144 MEQ/L (136-145); TOTAL PROTEIN 7.1 GM/DL (6.4-8.2)
[2016-05-22] MEDS ORDERED: ISOVUE-370 76% 100ML VIAL (Q9967) As Ordered ONE (19:50)
--- NOTE | 2016-05-22 20:30 | REPUSA ---
CLINICAL HISTORY: Abdominal pain. TECHNIQUE: Multiple axial, sagittal and coronal CT images were obtained through the abdomen and pelvi s after administration of oral and intravenous contrast material. COMMENTS: The liver is of uniform attenuation without mass or defect. There is no intra or extrahepatic biliary ductal dilatation. The spleen is normal. The gallbladder is within normal limits. The pancreas is of normal contour and attenuation characteristics. There is no evidence of adrenal mass. Both kidneys demonstrate prompt and equal nephrograms. The kidneys are normal in size, shape and conf iguration. There is no evidence of renal or ureteral mass. No renal or ureteral calculi are identifie d. There is no hydroureter or hydronephrosis. No evidence for appendicitis. There is no bowel wall thickening. No evidence for small or large trista l obstruction. There is no evidence of abdominal ascites. Multiple small mesenteric lymoh nodes are n oted compatible with mesenteric lymphadenitis. There is no evidence of intrinsic or extrinsic bladder mass. There is no pelvic ascites or lymphadeno lul. The uterus and ovaries are normal. Images of the lung bases show no evidence of pleural or parenchymal mass. There are no pleural effusi ons. The bony structures are free of lytic or blastic lesions. IMPRESSION: Multiple small mesenteric lymoh nodes are noted compatible with mesenteric lymphadenitis. Thank you for your kind referral of this patient.
[2016-05-22] MEDS ORDERED: GI COCKTAIL 50ML BTL(HYOSCYAMINE/MAALOX/LIDOCAINE VISCOUS)(1:3:1) PO ONE (21:00)
[2016-05-22] MEDS ORDERED: SUCR1SS PO (21:30)
[2016-05-22 21:43] VITALS: BP 132/66
== END 2016-05-22 21:50 | disposition home or self-care (01) ==
LOC: M ED 18:38
DX: K21.0 Gastro-esophageal reflux disease with esophagitis (principal); I88.0 Nonspecific mesenteric lymphadenitis; R42 Dizziness and giddiness; F17.210 Nicotine dependence, cigarettes, uncomplicated; Z88.0 Allergy status to penicillin; Z79.899 Other long term (current) drug therapy; J45.909 Unspecified asthma, uncomplicated
CPT/HCPCS: 36415; 74177; 80048; 80076; 81025; 83690; 85025; 96361; 96374; 99283; J2405; Q9963; Q9967

== ENCOUNTER → 2016-05-31 | Outpatient (REF) | payer OTHER ==
[~2016-05-31] MED LIST changes: +BREO1INH INH; +SUCR1SS PO
== END ==
LOC: M SFHCLERA 15:10
PROVIDERS: ATTEND Family Medicine
DX: D64.9 Anemia, unspecified (principal)

== ENCOUNTER → 2016-06-22 | Outpatient (CLI) | payer OTHER | LOC: M RAD 08:30 | PROVIDERS: ATTEND Internal Medicine Gastroenterology | DX: R19.7 Diarrhea, unspecified (principal); R93.3 Abnormal findings on diagnostic imaging of other parts of digestive tract ==

== ENCOUNTER 2016-06-26 10:32 | Emergency (ER) | payer OTHER ==
[~2016-06-26] VITALS: Ht 162.6 cm; Wt 93.0 kg
[~2016-06-26 10:32] MED LIST changes: -COLA100C PO; +COLA100C3 PO
[2016-06-26] MEDS ORDERED: ATOM40CA PO (10:39)
[2016-06-26] MEDS ORDERED: NAPROXEN 250 MG TAB PO ONE (12:30)
--- NOTE | 2016-06-26 13:55 | REP ---
Cervical spine complete: 06/26/2016. Clinical history: Trauma. No prior study. Trauma protocol performed. The sagittal view shows slight reversal of the normal cervical lordosis. May reflect some spasm or positioning. There is no spondylolysis, compression deformity or prevertebral swelling. The central canal and foramina are without stenosis. Spinous processes, lamina, pedicles, facets and transverse processes were all unremarkable. The soft tissues in the neck show strap muscles symmetric and normal. The parotid and submandibular glands intact. There is no pathologic sized adenopathy. The lung apices are clear. The upper ribs and lung apices are clear. Impression: 1. Straightening of the cervical spine may reflect spasm, no compression deformity, spondylosis, spinal or foraminal stenosis. Signed by Roshan Lewis MD 06/26/2016 08:26 P
--- NOTE | 2016-06-26 13:57 | REP ---
CT BRAIN WITHOUT CONTRAST: 06/26/2016. No prior study. Clinical history: Trauma. Soft tissue and bone windows for each slice level were provided. Ventricles are midline, symmetric and without dilatation or displacement. Basal ganglia symmetric and normal. Redmond white junction differentiation was well maintained. The cortical stripe is preserved. There is no vascular territory infarct, hemorrhage, mass, mass effect or extra-axial fluid collection. Brainstem unremarkable and cerebellum normal. Basal cisterns are intact. Mastoids and other visualized sinuses clear. Skull base and calvarium show no fracture or focal lesion. Impression: 1. Normal noncontrast CT brain. There is no skull fracture, intracranial bleed or other acute finding. Signed by Roshan Lewis MD 06/26/2016 08:27 P
[2016-06-26] MEDS ORDERED: IBUP80TA PO (14:00)
[2016-06-26] MEDS ORDERED: CYCL10TA PO (14:00)
--- NOTE | 2016-06-26 14:04 | REP ---
LUMBAR SPINE COMPLETE: 06/26/2016. Clinical history: Trauma. Back pain. Five views are provided. Findings. Pedicles, spinous and transverse processes are intact. Short twelfth ribs are noted. Sacralization of the transverse processes of L5 seen as anatomic variation. SI joints, sacral ala and foramina are unremarkable. No spondylolisthesis or spondylolysis. No compression deformities. The L5 S1 levels show narrowing of the disc space. No compression deformity. Impression: 1. Degenerative disc changes at L5-S1. No compression deformity or focal lesion. Slight loss of lordosis may reflect spasm. Nothing acute. Signed by Roshan Lewis MD 06/26/2016 08:27 P
[2016-06-26 14:20] VITALS: BP 128/66
== END 2016-06-26 14:22 | disposition home or self-care (01) ==
LOC: M ED 11:47
DX: S30.810A Abrasion of lower back and pelvis, initial encounter (principal); S30.0XXA Contusion of lower back and pelvis, initial encounter; Y04.8XXA Assault by other bodily force, initial encounter; Y92.018 Other place in single-family (private) house as the place of occurrence of the external cause; Y93.89 Activity, other specified; Y99.8 Other external cause status; R51 Headache; M54.2 Cervicalgia; M51.37 Other intervertebral disc degeneration, lumbosacral region; J45.909 Unspecified asthma, uncomplicated; Z79.51 Long term (current) use of inhaled steroids; Z79.899 Other long term (current) drug therapy; F17.210 Nicotine dependence, cigarettes, uncomplicated

== ENCOUNTER → 2016-06-28 | Outpatient (CLI) | payer OTHER ==
[~2016-06-28] MED LIST changes: +ATOM40CA PO; +CYCL10TA PO; +E-Z PAQUE 60% w/v SUSP 355ML BOTTLE As Ordered ONE; +ENTERO VU 24% w/v SUSP BTL 600ML As Ordered ONE; +IBUP80TA PO
--- NOTE | 2016-06-28 12:47 | REP ---
SMALL BOWEL FOLLOW-THROUGH AND KUB: 06/28/2016 CLINICAL HISTORY: Diarrhea, mesenteric lymphadenitis suggested on CT 05/22/2016. FINDINGS: The packing and wrapping supervisor image shows a normal gas pattern. There are no dilated loops, abnormal calcifications or masses. Bones intact. EnteroVue contrast given by mouth with images at 0, 20 and 60 minutes. Transit time to the cecum is less than 1 hour. A normal appearance of the jejunum without full-thickness abnormality, stricture, dilatation, angulated loops of loops or masses. A more featureless small bowel loops are seen. The terminal ileum is unremarkable. Ileocecal valve intact. There is no tenderness on ballottement. IMPRESSION: 1. Normal small bowel follow-through. No evidence of mass, stricture, obstruction and there is no tenderness with blunted. Transit time to the cecum is less than 1 hour, normal. 2. Fluoroscopy time: 40 seconds. Signed by Roshan Lewis MD 06/28/2016 05:17 P
== END ==
LOC: M RAD 09:13
PROVIDERS: ATTEND Internal Medicine Gastroenterology

== ENCOUNTER → 2016-07-12 | Outpatient (CLI) | payer OTHER ==
[~2016-07-12] VITALS: Ht 162.6 cm; Wt 93.4 kg
[~2016-07-12] MED LIST changes: +ALBUTEROL SULFATE 2.5 MG/0.5 ML INH NEB SOLN As Ordered ONE; +ALBUTEROL SULFATE 2.5 MG/0.5 ML INH NEB SOLN INH ONE; -E-Z PAQUE 60% w/v SUSP 355ML BOTTLE As Ordered ONE; -ENTERO VU 24% w/v SUSP BTL 600ML As Ordered ONE; +NS 1,000 ML IV SCH; +PROPOFOL 500 MG/50 ML VIAL As Ordered ONE
--- NOTE | 2016-07-12 12:26 | ROOR ---
Patient Name: Leila Sanchez Procedure Date: 07/12/2016 12:14 PM Date of : 1995 Age: 20 Room: SAGE02 Gender: Female Note Status: Finalized Procedure: Upper GI endoscopy Indications: Heartburn, (abnl CT/possible mesenteric adenitis) Providers: Naif AGUIRRE MD Referring MD: GABBI ALLEN MD Requesting Provider: Medicines: Monitored Anesthesia Care Complications: No immediate complications. Procedure: Pre-Anesthesia Assessment: - The heart rate, respiratory rate, oxygen saturations, blood pressure, adequacy of pulmonary ventilation, and response to care were monitored throughout the procedure. The Endoscope was introduced through the mouth, and advanced to the third part of duodenum. The upper GI endoscopy was accomplished without difficulty. The patient tolerated the procedure well. Findings: The esophagus was normal. The stomach was normal. The examined duodenum was normal. Biopsies for histology were taken with a cold forceps for evaluation of celiac disease. Impression: - Normal esophagus. - Normal stomach. - Normal examined duodenum. Biopsied. Recommendation: - Continue present medications. - Follow an antireflux regimen. - Telephone endoscopist for pathology results in 2 weeks. Naif Aguirre MD Naif AGUIRRE MD 07/12/2016 12:26:14 PM This report has been signed electronically. Number of Addenda: 0 Note Initiated On: 07/12/2016 12:14 PM Estimated Blood Loss: Estimated blood loss: none.
--- NOTE | 2016-07-12 12:41 | ROOR ---
Patient Name: Leila Sanchez Procedure Date: 07/12/2016 12:15 PM Date of : 1995 Age: 20 Room: OP02 Gender: Female Note Status: Finalized Procedure: Colonoscopy Indications: Diarrhea of presumed infectious origin, Abnormal CT of the GI tract, sx resolved. has constipation as baseline. CT was suggestive of mesenteric adenitis Providers: Naif AGUIRRE MD Referring MD: GABBI ALLEN MD Requesting Provider: Medicines: Monitored Anesthesia Care Complications: No immediate complications. Procedure: Pre-Anesthesia Assessment: - The heart rate, respiratory rate, oxygen saturations, blood pressure, adequacy of pulmonary ventilation, and response to care were monitored throughout the procedure. The Colonoscope was introduced through the anus and advanced to 5 cm into the ileum. The colonoscopy was performed without difficulty. The patient tolerated the procedure well. The quality of the bowel preparation was good. Findings: The perianal and digital rectal examinations were normal. The terminal ileum appeared normal. The entire examined colon appeared normal on direct and retroflexion views. Biopsies were taken with a cold forceps in the entire colon and in the terminal ileum for histology. Impression: - The examined portion of the ileum was normal. - The entire colon is normal on direct and retroflexion views. - Biopsies were taken with a cold forceps for histology in the entire colon and in the terminal ileum. Recommendation: - Telephone endoscopist for pathology results in 2 weeks. - Miralax 1 capful (17 grams) in 8 ounces of water PO daily. - (the script was sent to your pharmacy on file) - Perform CT scan (computed tomography) of the abdomen with contrast in 2 months. - My office will call you to setup and repeat the follow up CT scan as planned in about 1-2 months. Naif Aguirre MD Naif AGUIRRE MD 07/12/2016 12:41:20 PM This report has been signed electronically. Number of Addenda: 0 Note Initiated On: 07/12/2016 12:15 PM Estimated Blood Loss: Estimated blood loss: none.
[2016-07-12 13:11] VITALS: BP 129/66
== END ==
LOC: M OPP 09:55
PROVIDERS: ATTEND Internal Medicine Gastroenterology
DX: R19.7 Diarrhea, unspecified (principal); K21.9 Gastro-esophageal reflux disease without esophagitis; J45.909 Unspecified asthma, uncomplicated; F41.9 Anxiety disorder, unspecified; F90.9 Attention-deficit hyperactivity disorder, unspecified type; F17.210 Nicotine dependence, cigarettes, uncomplicated; Z88.0 Allergy status to penicillin; Z88.8 Allergy status to other drugs, medicaments and biological substances

== ENCOUNTER 2016-07-14 11:52 | Outpatient (RCR) | payer OTHER ==
[~2016-07-14 11:52] MED LIST changes: -ALBUTEROL SULFATE 2.5 MG/0.5 ML INH NEB SOLN As Ordered ONE; -ALBUTEROL SULFATE 2.5 MG/0.5 ML INH NEB SOLN INH ONE; -NS 1,000 ML IV SCH; -PROPOFOL 500 MG/50 ML VIAL As Ordered ONE
== END 2016-07-18 ==
LOC: M PT 11:52
PROVIDERS: ATTEND Orthopaedic Surgery
DX: Z51.89 Encounter for other specified aftercare (principal); M47.896 Other spondylosis, lumbar region; M51.36 Other intervertebral disc degeneration, lumbar region

== ENCOUNTER → 2016-07-16 | Outpatient (CLI) | payer OTHER ==
--- NOTE | 2016-07-16 13:46 | REP ---
CERVICAL SPINE, EIGHT VIEWS: HISTORY: Cervicalgia. There is no acute fracture or subluxation. The intervertebral discs are normal in height. The neural foramina are patent. IMPRESSION: There is no acute fracture or subluxation. Signed by Dawson Machado MD 07/16/2016 01:52 P
== END ==
LOC: M LRY 11:18
PROVIDERS: ATTEND Family Medicine
DX: M54.2 Cervicalgia (principal)

== ENCOUNTER 2016-08-11 10:00 | Outpatient (RCR) | payer OTHER | END 2016-08-18 | disposition home or self-care (01) | LOC: M PT 10:00 | PROVIDERS: ATTEND Orthopaedic Surgery | DX: Z51.89 Encounter for other specified aftercare (principal); M51.36 Other intervertebral disc degeneration, lumbar region; M47.896 Other spondylosis, lumbar region ==

== ENCOUNTER 2016-09-14 17:47 | Emergency (ER) | payer OTHER ==
[~2016-09-14] VITALS: Ht 162.6 cm; Wt 90.6 kg
[~2016-09-14 17:47] MED LIST changes: -COLA100C3 PO; +COLA100C5 PO
[2016-09-14] MEDS ORDERED: ROPI0.5T PO (18:01)
[2016-09-14] MEDS ORDERED: MELO7.5T7 PO (18:01)
[2016-09-14] MEDS ORDERED: TIZA4CAP3 PO (18:01)
[2016-09-14] MEDS ORDERED: SERT-155 (18:01)
[2016-09-14] MEDS ORDERED: TIZANIDINE (18:01)
[2016-09-14] MEDS ORDERED: OMEP20CA3 PO (18:01)
[2016-09-14 18:27] LABS: MEAN CORPUSCULAR HEMOGLOBIN 26.5 pg (27.0-33.0); MEAN CORPUSCULAR HGB CONC 33.1 g/dl (32.0-36.5); MEAN CORPUSCULAR VOLUME 79.9 fl (80.0-96.0); WHITE BLOOD COUNT 8.6 K/mm3 (4.0-10.0)
[2016-09-14 18:31] LABS: INR 0.97
[2016-09-14 18:49] LABS: CONTROL LINE HCG INT CTR LINE PRESENT
[2016-09-14] MEDS ORDERED: CIPR-249 PO (19:18)
[2016-09-14 19:23] VITALS: BP 125/68
[2017-01-21] MEDS ORDERED: ZOLO100T PO (09:35)
[2017-01-21] MEDS ORDERED: ZOFR4TAB3 PO (12:38)
== END 2016-09-14 19:36 | disposition home or self-care (01) ==
LOC: M ED 17:47
DX: N30.91 Cystitis, unspecified with hematuria (principal); J45.909 Unspecified asthma, uncomplicated; K21.9 Gastro-esophageal reflux disease without esophagitis; Z79.899 Other long term (current) drug therapy; Z79.51 Long term (current) use of inhaled steroids; Z88.0 Allergy status to penicillin; Z88.1 Allergy status to other antibiotic agents

== ENCOUNTER 2016-09-17 08:51 | Emergency (ER) | payer OTHER ==
[~2016-09-17] VITALS: Ht 162.6 cm; Wt 89.3 kg
[~2016-09-17 08:51] MED LIST changes: +CIPR-249 PO; +MELO7.5T7 PO; +OMEP20CA3 PO; +ROPI0.5T PO; +SERT-155; +TIZA4CAP3 PO; +TIZANIDINE
[2016-09-17 08:52] VITALS: BP 116/63
[2016-09-17] MEDS ORDERED: ZOFR4TAB3 PO (09:30)
[2016-09-17] MEDS ORDERED: ONDANSETRON 4 MG ORAL DISINTEGRATING TAB (S0181) PO ONE (09:30)
[2016-09-17] MEDS ORDERED: MACR100C43 PO (09:30)
[2017-01-21] MEDS ORDERED: ZOLO100T PO (09:35)
[2017-01-21] MEDS ORDERED: ZOFR4TAB3 PO (12:38)
== END 2016-09-17 09:31 | disposition home or self-care (01) ==
LOC: M ED 08:51
DX: R11.2 Nausea with vomiting, unspecified (principal); T36.8X5A Adverse effect of other systemic antibiotics, initial encounter; J45.909 Unspecified asthma, uncomplicated; F99 Mental disorder, not otherwise specified; Z79.899 Other long term (current) drug therapy; Z79.51 Long term (current) use of inhaled steroids; Z88.0 Allergy status to penicillin; Z88.1 Allergy status to other antibiotic agents

== ENCOUNTER 2016-10-12 08:30 | Emergency (ER) | payer OTHER ==
[~2016-10-12] VITALS: Ht 162.6 cm; Wt 93.6 kg
[~2016-10-12 08:30] MED LIST changes: +MACR100C43 PO; +ZOFR4TAB3 PO
[2016-10-12] MEDS ORDERED: TIZA4CAP3 PO (08:51)
[2016-10-12] MEDS ORDERED: MEDR1VL IM (08:53)
[2016-10-12] MEDS ORDERED: PERCOCET 5MG/325MG TAB PO ONE (10:15)
[2016-10-12] MEDS ORDERED: BACT800T5 PO (10:18)
[2016-10-12] MEDS ORDERED: PERC5TAB12 PO (10:18)
[2016-10-12] MEDS ORDERED: CLAR1TAB2 PO (10:19)
[2016-10-12] MEDS ORDERED: MUCI600T37 PO (10:19)
--- NOTE | 2016-10-12 11:02 | REP ---
REASON: Back pain. COMPARISON: 06/26/2016. FINDINGS: Five views of the lumbosacral spine show no acute fracture, dislocation or subluxation. The intervertebral disc spaces are symmetric and well maintained. There is no spondylolisthesis. The pedicles are intact bilaterally and there is no destructive osseous lesions. IMPRESSION: Unremarkable lumbosacral spine series. No significant change from the prior exam. Signed by Joseluis Mclean DO 10/12/2016 11:10 A
[2016-10-12 11:25] VITALS: BP 130/66
[2017-01-21] MEDS ORDERED: ZOLO100T PO (09:35)
[2017-01-21] MEDS ORDERED: ZOFR4TAB3 PO (12:38)
== END 2016-10-12 11:44 | disposition home or self-care (01) ==
LOC: M ED 08:30
DX: M54.5 Low back pain (principal); J01.90 Acute sinusitis, unspecified; F17.210 Nicotine dependence, cigarettes, uncomplicated; Z91.81 History of falling; Z88.0 Allergy status to penicillin; Z88.1 Allergy status to other antibiotic agents; Z88.8 Allergy status to other drugs, medicaments and biological substances

== ENCOUNTER 2016-10-19 16:55 | Emergency (ER) | payer OTHER ==
[~2016-10-19] VITALS: Ht 162.6 cm; Wt 89.5 kg
[~2016-10-19 16:55] MED LIST changes: +BACT800T5 PO; +CLAR1TAB2 PO; +MEDR1VL IM; +MUCI600T37 PO; +PERC5TAB12 PO
[2016-10-19 16:56] VITALS: BP 120/71
[2016-10-19] MEDS ORDERED: NORCO, ANEXSIA 5/325MG TABLET (HYDROcodone/ACETAMINOPHEN) PO ONE (19:45)
[2016-10-19 19:59] LABS: CONTROL LINE UCG INT CTR LINE PRESENT
--- NOTE | 2016-10-19 21:40 | REPUSA ---
CLINICAL HISTORY: Left pelvic pain. TECHNIQUE: Realtime sonographic images were obtained in multiple projections. FINDINGS: The uterus is measures 8.0 x 3.9 x 4.7 cm. The endometrial echo pattern is within normal limits adalgisa uring 6.0 mm. There is no evidence of free fluid within the pelvic cul-de-sac. The right ovary measures 3.9 x 2.9 x 3.6 cm. The left ovary measures 5.0 x 3.6 x 3.8 cm and contains a simple cyst measuring 3.3 x 2.6 x 2.5 cm. There is no free fluid in the cul-de-sac. There is no evidence for abnormal vascularity. IMPRESSION: 1. The uterus and right ovary are within normal limits. 2. The left ovary contains a simple 3.3 cm cyst. Thank you for your kind referral of this patient. We appreciate the opportunity to participate in thi s patient's care.
[2016-10-19] MEDS ORDERED: CIPR-249 PO (21:45)
[2016-10-19] MEDS ORDERED: CIPROFLOXACIN 500 MG TAB PO ONE (21:45)
[2016-10-19] MEDS ORDERED: metroNIDAZOLE (FLAGYL) 500 MG TAB PO ONE (21:45)
[2016-10-19] MEDS ORDERED: FLAG500T PO (21:45)
[2017-01-21] MEDS ORDERED: ZOLO100T PO (09:35)
[2017-01-21] MEDS ORDERED: ZOFR4TAB3 PO (12:38)
== END 2016-10-19 21:58 | disposition home or self-care (01) ==
LOC: M ED 16:55
DX: N83.209 Unspecified ovarian cyst, unspecified side (principal); N39.0 Urinary tract infection, site not specified; N76.0 Acute vaginitis; J45.909 Unspecified asthma, uncomplicated; F33.8 Other recurrent depressive disorders; F17.210 Nicotine dependence, cigarettes, uncomplicated; Z79.899 Other long term (current) drug therapy; Z88.1 Allergy status to other antibiotic agents; Z88.0 Allergy status to penicillin; Z88.8 Allergy status to other drugs, medicaments and biological substances

== ENCOUNTER 2016-10-22 07:56 | Emergency (ER) | payer OTHER ==
[~2016-10-22] VITALS: Ht 162.6 cm; Wt 88.2 kg
[~2016-10-22 07:56] MED LIST changes: +FLAG500T PO
[2016-10-22] MEDS ORDERED: MORPHINE 4 MG/ML 1ML SYRINGE IV ONE ×2 (08:30→13:00)
[2016-10-22] MEDS ORDERED: ONDANSETRON 4MG/2ML VIAL (J2405) IV ONE (08:30)
[2016-10-22] MEDS: NS 1,000 ML IV SCH ×2 (08:38→15:01)
[2016-10-22 08:49] LABS: BASO % 0.5 % (0.0-1.0); EOS # 0.1 K/mm3 (0.0-0.50); EOS % 0.6 % (0.0-3.0); LARGE UNSTAINED CELL # 0.2 K/mm3 (0.0-0.4); LARGE UNSTAINED CELL % 1.5 % (0.0-4.0); LYMPH # 2.2 K/mm3 (1.5-6.5); MEAN CORPUSCULAR HEMOGLOBIN 26.3 pg (27.0-33.0); MEAN CORPUSCULAR HGB CONC 32.4 g/dl (32.0-36.5); MEAN CORPUSCULAR VOLUME 81.2 fl (80.0-96.0); MONO # 0.5 K/mm3 (0.0-0.8); MONO % 4.1 % (0.0-5.0); NEUTROPHILS # 8.4 K/mm3 (1.8-7.7); NEUTROPHILS % 75.3 % (36.0-66.0); PLATELET COUNT, AUTOMATED 316 k/mm3 (150-450); RED CELL DISTRIBUTION WIDTH 15.6 % (11.5-14.5); WHITE BLOOD COUNT 11.1 K/mm3 (4.0-10.0)
[2016-10-22 09:07] LABS: CONTROL LINE HCG INT CTR LINE PRESENT
[2016-10-22 09:15] LABS: ALBUMIN 3.4 GM/DL (3.2-5.2); ALBUMIN/GLOBULIN RATIO 1.13 (1.00-1.93); ALKALINE PHOSPHATASE 83 U/L (45-117); ALT/SGPT 15 U/L (12-78); ANION GAP 9 MEQ/L (8-16); AST/SGOT 12 U/L (15-37); BILIRUBIN,DIRECT 0.2 MG/DL (0.0-0.2); BILIRUBIN,TOTAL 0.8 MG/DL (0.2-1.0); BLOOD UREA NITROGEN 13 MG/DL (7-18); CALCIUM LEVEL 8.6 MG/DL (8.5-10.1); CARBON DIOXIDE LEVEL 24 MEQ/L (21-32); CHLORIDE LEVEL 109 MEQ/L (98-107); CREATININE FOR GFR 0.65 MG/DL (0.55-1.02); GLOMERULAR FILTRATION RATE > 60.0 (>60); GLUCOSE, FASTING 94 MG/DL (70-105); POTASSIUM SERUM 3.5 MEQ/L (3.5-5.1); SODIUM LEVEL 142 MEQ/L (136-145); TOTAL PROTEIN 6.4 GM/DL (6.4-8.2)
[2016-10-22] MEDS ORDERED: GASTROGRAFIN SOLUTION 30ML PO ONE (09:30)
[2016-10-22] MEDS ORDERED: ISOVUE-370 76% 100ML VIAL (Q9967) As Ordered ONE (09:58)
[2016-10-22] MEDS ORDERED: GASTROGRAFIN SOLUTION 30ML (Q9963) PO ONE (10:00)
--- NOTE | 2016-10-22 12:42 | REP ---
REASON: Left lower quadrant pain. COMPARISON: 05/22/2016 which showed multiple mesenteric lymph nodes. CONTRAST: 100 mL Isovue 370. The lung bases are clear. The liver, gallbladder, spleen, pancreas, adrenal glands, and kidneys are again see to be within normal limits. The abdominal aorta and para-aortic regions are again seen to be within normal limits. The bowel loops and their mesenteries are within normal limits. Tiny normal appearing mesenteric lymph nodes are again noted. There is no free fluid or free air. CT PELVIS: In the left adnexa, there is an oval-shaped 4.5 x 3.6 x 4.3 cm sized low density mass which has water Hounsfield unit readings and abuts the uterus. There is no free fluid or free air in the pelvis. The pelvic bowel loops and their mesenteries are within normal limits. Bone window technique throughout the examination shows the osseous structures to be stable and intact. IMPRESSION: 1. There is a left adnexal cyst which is most probably of ovarian origin. Consider further evaluation with pelvic ultrasonography if clinically relevant. 2. Other findings as described above. ? Signed by Joseluis Mclean DO 10/22/2016 01:58 P
--- NOTE | 2016-10-22 14:10 | REP ---
Pelvic ultrasound including transabdominal, endovaginal and Doppler ultrasound assessment: The bladder is adequately distended. The uterus is anteverted and normal size measuring 828 x 4.1 x 4.6 cm. The endometrium is not thickened measuring up to 12 mm. Right ovary: The right ovary is normal size measuring 2.5 x 2.2 x 2.4 cm. There is no dominant mass or cyst in the right ovary. With Doppler assessment there is vascular flow in the right ovarian intraparenchymal arteries with the resistive index measuring 0.51. Left ovary: There is a dominant left ovarian cyst measuring 4.7 x 3.6 x 3.3 cm. Including the cyst the left ovary is enlarged measuring 5.4 3.6 x 4.2 cm. There is vascular flow in the left ovary with the Doppler resistive index of the intraparenchymal arteries measuring 0.50. On a prior study dated 10/19/2016 this left ovarian cyst measured three 3.3 x 2.6 x 2.5 cm. There is no free fluid in the pelvis. Signed by Jabier Werner MD 10/22/2016 02:01 P
[2016-10-22 15:28] VITALS: BP 138/63
[2017-01-21] MEDS ORDERED: ZOLO100T PO (09:35)
[2017-01-21] MEDS ORDERED: ZOFR4TAB3 PO (12:38)
== END 2016-10-22 15:31 | disposition home or self-care (01) ==
LOC: M ED 07:56
DX: N83.202 Unspecified ovarian cyst, left side (principal); R11.10 Vomiting, unspecified; K21.9 Gastro-esophageal reflux disease without esophagitis; J45.909 Unspecified asthma, uncomplicated; F17.210 Nicotine dependence, cigarettes, uncomplicated; Z88.0 Allergy status to penicillin; Z88.1 Allergy status to other antibiotic agents; Z88.8 Allergy status to other drugs, medicaments and biological substances; Z79.899 Other long term (current) drug therapy
CPT/HCPCS: 36415; 74177; 76830; 76856; 80048; 80076; 81001; 83690; 84703; 85025; 87086; 93041; 93976; 96361; 96374; 96375; 96376; 99285; J2405; Q9963; Q9967

== ENCOUNTER 2016-10-25 09:59 | Emergency (ER) | payer OTHER ==
[~2016-10-25] VITALS: Ht 162.6 cm; Wt 88.7 kg
[2016-10-25 10:00] VITALS: BP 114/68
[2016-10-25] MEDS ORDERED: NS 1,000 ML IV ONE (11:00)
[2016-10-25] MEDS ORDERED: KETOROLAC 30 MG/ML VIAL (J1885) IV ONE (11:15)
[2016-10-25 11:20] LABS: BASO # 0.1 K/mm3 (0.0-0.2); BASO % 0.4 % (0.0-1.0); EOS # 0.1 K/mm3 (0.0-0.50); EOS % 0.8 % (0.0-3.0); LARGE UNSTAINED CELL # 0.1 K/mm3 (0.0-0.4); LARGE UNSTAINED CELL % 0.8 % (0.0-4.0); LYMPH % 14.6 % (24.0-44.0); MEAN CORPUSCULAR HEMOGLOBIN 26.8 pg (27.0-33.0); MEAN CORPUSCULAR HGB CONC 33.1 g/dl (32.0-36.5); MEAN CORPUSCULAR VOLUME 80.9 fl (80.0-96.0); MONO # 0.4 K/mm3 (0.0-0.8); MONO % 3.2 % (0.0-5.0); NEUTROPHILS # 10.4 K/mm3 (1.8-7.7); NEUTROPHILS % 80.2 % (36.0-66.0); PLATELET COUNT, AUTOMATED 345 k/mm3 (150-450); RED CELL DISTRIBUTION WIDTH 15.5 % (11.5-14.5)
[2016-10-25 11:37] LABS: ANION GAP 11 MEQ/L (8-16); BLOOD UREA NITROGEN 11 MG/DL (7-18); CALCIUM LEVEL 8.9 MG/DL (8.5-10.1); CARBON DIOXIDE LEVEL 25 MEQ/L (21-32); CHLORIDE LEVEL 106 MEQ/L (98-107); CREATININE FOR GFR 0.74 MG/DL (0.55-1.02); GLOMERULAR FILTRATION RATE > 60.0 (>60); GLUCOSE, FASTING 84 MG/DL (70-105); POTASSIUM SERUM 3.6 MEQ/L (3.5-5.1); SODIUM LEVEL 142 MEQ/L (136-145)
--- NOTE | 2016-10-25 12:09 | REP ---
PELVIC ULTRASOUND: Real-time sonographic evaluation of the pelvis performed utilizing transabdominal and endovaginal technique. Comparison made with prior study of 10/22/2016. The urinary bladder is collapsed. The uterus measures 8.5 x 4.1 x 5.2 cm. Trace fluid is seen in the cervical canal. Endometrium measures 3 mm in AP thickness. Right ovary is normal in size and echotexture measuring 3.4 x 2.1 x 2.2 cm. Left ovary is enlarged measuring 5.4 x 3.8 x 4.5 cm, containing a cyst which is essentially unchanged compared to the prior study, 4.9 x 3.5 x 3.8 cm. There is no evidence of ovarian torsion bilaterally, with blood flow seen in each ovary with duplex Doppler evaluation. No free fluid is seen. IMPRESSION: No change left ovarian cyst, maximum diameter 4.9 cm. No torsion or free fluid. Signed by Jabier Redmond MD 10/26/2016 08:39 A
[2016-10-25] MEDS ORDERED: MORPHINE 4 MG/ML 1ML SYRINGE IV ONE (12:45)
[2016-10-25] MEDS ORDERED: PERC5TAB12 PO (13:42)
[2016-10-25] MEDS ORDERED: ZOFR4TAB3 PO (13:42)
[2016-10-25] MEDS ORDERED: IBUP80TA PO (13:42)
[2017-01-21] MEDS ORDERED: ZOLO100T PO (09:35)
[2017-01-21] MEDS ORDERED: ZOFR4TAB3 PO (12:38)
== END 2016-10-25 13:58 | disposition home or self-care (01) ==
LOC: M ED 09:59
DX: N83.202 Unspecified ovarian cyst, left side (principal); F17.210 Nicotine dependence, cigarettes, uncomplicated; Z88.0 Allergy status to penicillin; Z88.1 Allergy status to other antibiotic agents; Z79.899 Other long term (current) drug therapy
CPT/HCPCS: 76830; 76856; 80048; 81001; 81025; 85025; 93976; 96374; 96375; 99283; J1885

== ENCOUNTER 2016-10-27 14:24 | Day surgery (SDC) | payer OTHER ==
[~2016-10-27] VITALS: Ht 162.6 cm; Wt 89.2 kg
[2016-10-27] MEDS ORDERED: LR 1,000 ML IV ONE (15:00)
[2016-10-27 15:18] LABS: CONTROL LINE UCG INT CTR LINE PRESENT
[2016-10-27] MEDS ORDERED: ACETAMINOPHEN 650 MG SUPP As Ordered ONE (19:11)
[2016-10-27] MEDS ORDERED: BUPIVACAINE/EPIN 0.25% 30 ML VIAL As Ordered ONE (19:11)
[2016-10-27] MEDS ORDERED: fentaNYL 100 MCG/2 ML INJECTION (J3010) As Ordered ONE ×2 (19:16→20:05)
[2016-10-27] MEDS ORDERED: PROPOFOL 200 MG/20 ML VIAL As Ordered ONE (19:16)
[2016-10-27] MEDS ORDERED: ONDANSETRON 4MG/2ML VIAL (J2405) As Ordered ONE (19:16)
[2016-10-27] MEDS ORDERED: MIDAZOLAM INJ 2 MG/2 ML VIAL (J2250) As Ordered ONE (19:16)
[2016-10-27] MEDS ORDERED: LIDOCAINE 2% INJ 100 MG/5 ML SDV (FOR ANES.) As Ordered ONE (19:16)
[2016-10-27] MEDS ORDERED: SCOPOLAMINE 1.5 MG TRANSDERMAL As Ordered ONE (19:21)
[2016-10-27] MEDS ORDERED: SUCCINYLCHOLINE 100 MG/5 ML SYRINGE (J0330) As Ordered ONE (19:44)
[2016-10-27] MEDS ORDERED: dexameTHASONE 4 MG/ML 1ML VIAL (J1100) As Ordered ONE (19:44)
[2016-10-27] MEDS ORDERED: SCOPOLAMINE 1.5 MG TRANSDERMAL TOP ONE (19:45)
[2016-10-27] MEDS ORDERED: LIDOCAINE 2% JELLY 30 ML As Ordered ONE (20:05)
[2016-10-27] MEDS ORDERED: NEOSTIGMINE 1MG/ML 5 ML SYRINGE (J2710) As Ordered ONE (20:26)
[2016-10-27] MEDS ORDERED: GLYCOPYRROLATE INJ 0.2 MG/ML 2 ML VIAL As Ordered ONE (20:26)
[2016-10-27] MEDS ORDERED: IBUP80TA PO (20:33)
[2016-10-27] MEDS ORDERED: LR 1,000 ML IV SCH (21:00)
[2016-10-27] MEDS ORDERED: ONDANSETRON 4MG/2ML VIAL (J2405) IV PRN (21:00)
[2016-10-27] MEDS ORDERED: fentaNYL 100 MCG/2 ML INJECTION (J3010) IV PRN (21:00)
[2016-10-27] MEDS ORDERED: PERCOCET 5MG/325MG TAB PO PRN (21:15)
[2016-10-27 21:55] VITALS: BP 145/76
[2016-10-27 22:25] VITALS: BP 133/73
[2016-10-27 22:55] VITALS: BP 131/67
[2016-10-27 23:56] VITALS: BP 137/70
[2016-10-28] MEDS ORDERED: IBUPROFEN 800 MG TAB PO SCH
--- NOTE | 2016-10-28 20:58 | RO ---
DATE OF PROCEDURE: Sury is a 21-year-old female who was experiencing diffuse lower abdominal pain was found to have a left ovarian cyst on ultrasound. After counseling and the patient desired to have the cyst removed. She was then being taken to the operating room for laparoscopy, possible removal of left ovarian cyst. PREOPERATIVE DIAGNOSES: 1. Lower abdominal pain. 2. Left ovarian cyst. POSTOPERATIVE DIAGNOSES: 1. Lower abdominal pain. 2. Left ovarian cyst. 3. Bowel adhesion. PROCEDURES: 1. Laparoscopic left ovarian cystectomy. 2. Lysis of adhesion. ANESTHESIA: General. SURGEON: Dr. Lyles COMPLICATIONS: None. ESTIMATED BLOOD LOSS: Less than 10 mL. SPECIMEN SENT TO THE LAB: Left ovarian cyst wall. PROCEDURE: After obtaining informed consent and visiting the patient in the preop area. The procedures reaffirmed with the patient. She was then taken to back to the operating room under general anesthesia. She was then draped and prepped usual sterile fashion. A Lorenzo catheter was placed in the bladder for drainage. A sponge stick was placed in the vagina for uterine manipulation. I then turned my attention to the abdomen where a 5 mm infraumbilical incision was made using the Veress needle. The abdomen was insufflated with CO2 gas to approximately 3.5 liters. We then placed a 5 mm trocar under direct visualization for the camera port and then a 5 mm right lateral port was placed. The patient was placed in Trendelenburg. The bowel pushed out of the operative field. Bowel adhesions noted to the left pelvic sidewall and ovary. Using the BJORN Harmonic scalpel and with a series of blunt and sharp dissection the adhesions were removed. The left ovarian cyst was identified using the BJORN Harmonic scalpel. The cyst wall was removed, clear fluid noted draining from the cyst. After removal of the cyst wall, the edge was cauterized using the BJORN Harmonic scalpel. Good hemostasis noted. Pelvis copiously irrigated with normal saline and suctioned out. All instruments removed, The Dermabond 0.25% Marcaine was placed for postoperative pain. The patient tolerated procedure well. She was then transferred to recovery room in stable condition.
[2017-01-21] MEDS ORDERED: ZOLO100T PO (09:35)
[2017-01-21] MEDS ORDERED: ZOFR4TAB3 PO (12:38)
== END 2016-10-28 00:05 | disposition home or self-care (01) ==
LOC: M SDC 14:24 → M PED 21:50 → M SDC 10-28 00:05
PROVIDERS: ATTEND Obstetrics & Gynecology
DX: N83.202 Unspecified ovarian cyst, left side (principal); K66.0 Peritoneal adhesions (postprocedural) (postinfection); J45.909 Unspecified asthma, uncomplicated; E66.9 Obesity, unspecified; K21.9 Gastro-esophageal reflux disease without esophagitis; F90.9 Attention-deficit hyperactivity disorder, unspecified type; Z88.0 Allergy status to penicillin; Z88.1 Allergy status to other antibiotic agents; Z79.899 Other long term (current) drug therapy; Z79.3 Long term (current) use of hormonal contraceptives; Z72.0 Tobacco use

== ENCOUNTER → 2016-11-26 | Outpatient (REF) | payer OTHER ==
[~2016-11-26] MED LIST changes: +ALBU17IN; +ANUS25SU PR; +ATOM60CA PO; +KETO10TAB PO; +PRED20TA PO; +SOMA350T PO; +TESS100C PO; +ZANT300T PO; +ZITHTAB PO; +ZOLO100T PO
== END ==
LOC: M LAB REF 12:23
PROVIDERS: ATTEND Internal Medicine Medical Oncology
DX: I88.0 Nonspecific mesenteric lymphadenitis (principal)

== ENCOUNTER 2016-11-27 16:16 | Emergency (ER) | payer OTHER ==
[~2016-11-27] VITALS: Ht 162.6 cm; Wt 90.0 kg
[2016-11-27 16:16] VITALS: BP 145/78
[~2016-11-27 16:16] MED LIST changes: -ALBU17IN; -ANUS25SU PR; -ATOM60CA PO; -KETO10TAB PO; -PRED20TA PO; -SOMA350T PO; -TESS100C PO; -ZANT300T PO; -ZITHTAB PO; -ZOLO100T PO
[2016-11-27] MEDS ORDERED: ZANT300T PO (17:16)
[2017-01-21] MEDS ORDERED: ZOLO100T PO (09:35)
[2017-01-21] MEDS ORDERED: ZOFR4TAB3 PO (12:38)
== END 2016-11-27 17:46 | disposition home or self-care (01) ==
LOC: M ED 16:16
DX: K21.0 Gastro-esophageal reflux disease with esophagitis (principal); J45.909 Unspecified asthma, uncomplicated; F33.9 Major depressive disorder, recurrent, unspecified; Z79.899 Other long term (current) drug therapy; Z79.51 Long term (current) use of inhaled steroids; Z88.0 Allergy status to penicillin; Z88.8 Allergy status to other drugs, medicaments and biological substances; F17.210 Nicotine dependence, cigarettes, uncomplicated

== ENCOUNTER 2016-12-02 18:04 | Emergency (ER) | payer OTHER ==
[~2016-12-02] VITALS: Ht 162.6 cm; Wt 81.4 kg
[~2016-12-02 18:04] MED LIST changes: +ZANT300T PO
--- NOTE | 2016-12-02 19:13 | REP ---
Clinical: Trauma . Technique: AP, lateral, bilateral oblique views right ankle . Findings: No acute fracture or dislocation. Skeletal structures and joint spaces are intact and normal. Ankle mortise appears stable. No subcutaneous emphysema or radiodense foreign body. Impression: No acute fracture or dislocation. Signed by Andrea Rowe MD 12/02/2016 07:04 P
[2016-12-02 20:00] VITALS: BP 132/80
[2016-12-02] MEDS ORDERED: IBUPROFEN 100 MG/5 ML SUSP UDC DYE FREE PO ONE (23:00)
[2017-01-21] MEDS ORDERED: ZOLO100T PO (09:35)
[2017-01-21] MEDS ORDERED: ZOFR4TAB3 PO (12:38)
== END 2016-12-02 20:01 | disposition home or self-care (01) ==
LOC: M ED 18:04
DX: S93.401A Sprain of unspecified ligament of right ankle, initial encounter (principal); Z72.0 Tobacco use; X50.1XXA Overexertion from prolonged static or awkward postures, initial encounter; Y92.89 Other specified places as the place of occurrence of the external cause; Y93.01 Activity, walking, marching and hiking; Y99.9 Unspecified external cause status

== ENCOUNTER 2016-12-07 01:32 | Emergency (ER) | payer OTHER ==
[~2016-12-07] VITALS: Ht 162.6 cm; Wt 89.5 kg
[2016-12-07] MEDS ORDERED: ALBU17IN (01:52)
[2016-12-07] MEDS ORDERED: ALBUTEROL SULFATE 2.5 MG/0.5 ML INH NEB SOLN NEB ONE (06:30)
[2016-12-07] MEDS ORDERED: predniSONE 20 MG TAB PO ONE (06:30)
[2016-12-07 07:20] VITALS: BP 123/71
[2016-12-07] MEDS ORDERED: ZITHTAB PO (07:21)
[2016-12-07] MEDS ORDERED: PRED20TA PO (07:21)
--- NOTE | 2016-12-07 08:16 | REP ---
PA and lateral chest: Comparison is 01/23/2016. The lung llanos are clear. The cardiac size is normal The johnathon, mediastinum, and bony thorax are unremarkable. Impression: Negative PA and lateral chest. There is no interval change. Signed by Jabier Werner MD 12/07/2016 08:08 A
[2016-12-08] MEDS ORDERED: ANUS25SU PR (04:02)
[2017-01-21] MEDS ORDERED: ZOLO100T PO (09:35)
[2017-01-21] MEDS ORDERED: ZOFR4TAB3 PO (12:38)
== END 2016-12-07 07:30 | disposition home or self-care (01) ==
LOC: M ED 01:32
DX: J45.901 Unspecified asthma with (acute) exacerbation (principal); J20.9 Acute bronchitis, unspecified

== ENCOUNTER 2016-12-07 21:42 | Emergency (ER) | payer OTHER ==
[~2016-12-07] VITALS: Ht 162.6 cm; Wt 89.5 kg
[~2016-12-07 21:42] MED LIST changes: +ALBU17IN; +PRED20TA PO; +ZITHTAB PO
[2016-12-08] MEDS ORDERED: ANUS25SU PR (04:02)
[2016-12-08 04:09] VITALS: BP 107/60
[2017-01-21] MEDS ORDERED: ZOLO100T PO (09:35)
[2017-01-21] MEDS ORDERED: ZOFR4TAB3 PO (12:38)
== END 2016-12-08 04:17 | disposition home or self-care (01) ==
LOC: M ED 21:42
DX: K60.2 Anal fissure, unspecified (principal); Z72.0 Tobacco use

== ENCOUNTER 2016-12-11 13:39 | Emergency (ER) | payer OTHER ==
[~2016-12-11] VITALS: Ht 162.6 cm; Wt 89.5 kg
[2016-12-11 13:39] VITALS: BP 151/65
[~2016-12-11 13:39] MED LIST changes: +ANUS25SU PR
[2016-12-11] MEDS ORDERED: ATOM60CA PO (13:55)
[2016-12-11] MEDS ORDERED: TESS100C PO (14:21)
[2017-01-21] MEDS ORDERED: ZOLO100T PO (09:35)
[2017-01-21] MEDS ORDERED: ZOFR4TAB3 PO (12:38)
== END 2016-12-11 14:30 | disposition home or self-care (01) ==
LOC: M ED 13:39
DX: J06.9 Acute upper respiratory infection, unspecified (principal); Z72.0 Tobacco use

== ENCOUNTER 2016-12-14 08:03 | Emergency (ER) | payer OTHER ==
[~2016-12-14] VITALS: Ht 162.6 cm; Wt 87.0 kg
[~2016-12-14 08:03] MED LIST changes: +ATOM60CA PO; +TESS100C PO
[2016-12-14] MEDS ORDERED: BACT800T5 PO (08:38)
[2016-12-14 08:45] VITALS: BP 126/75
[2017-01-21] MEDS ORDERED: ZOLO100T PO (09:35)
[2017-01-21] MEDS ORDERED: ZOFR4TAB3 PO (12:38)
== END 2016-12-14 08:47 | disposition home or self-care (01) ==
LOC: M ED 08:03
DX: L03.012 Cellulitis of left finger (principal); Z72.0 Tobacco use

== ENCOUNTER 2016-12-28 18:14 | Emergency (ER) | payer OTHER ==
[~2016-12-28] VITALS: Ht 162.6 cm; Wt 85.7 kg
[2016-12-28] MEDS ORDERED: KETO10TAB PO (20:42)
[2016-12-28] MEDS ORDERED: SOMA350T PO (20:42)
[2016-12-28] MEDS ORDERED: KETOROLAC 60 MG/2 ML VIAL (J1885) IM ONE (20:45)
[2016-12-28 21:07] VITALS: BP 131/68
[2017-01-21] MEDS ORDERED: ZOLO100T PO (09:35)
[2017-01-21] MEDS ORDERED: ZOFR4TAB3 PO (12:38)
== END 2016-12-28 21:15 | disposition home or self-care (01) ==
LOC: M ED 18:14
DX: G89.29 Other chronic pain (principal); M54.9 Dorsalgia, unspecified; Z79.899 Other long term (current) drug therapy; Z88.0 Allergy status to penicillin; Z88.1 Allergy status to other antibiotic agents; Z88.8 Allergy status to other drugs, medicaments and biological substances; F17.210 Nicotine dependence, cigarettes, uncomplicated
CPT/HCPCS: 96372; 99282; J1885; J3360

== ENCOUNTER 2017-01-03 20:59 | Emergency (ER) | payer OTHER ==
[~2017-01-03] VITALS: Ht 162.6 cm; Wt 83.6 kg
[~2017-01-03 20:59] MED LIST changes: +KETO10TAB PO; +SOMA350T PO
[2017-01-03] MEDS ORDERED: ZOFR4TAB3 PO (22:00)
[2017-01-03] MEDS ORDERED: NS 1,000 ML IV ONE (23:15)
[2017-01-03] MEDS ORDERED: ONDANSETRON 4MG/2ML VIAL (J2405) IV ONE (23:15)
[2017-01-03] MEDS ORDERED: KETOROLAC 30 MG/ML VIAL (J1885) IV ONE (23:15)
[2017-01-03 23:34] LABS: BASO # 0.1 10^3/uL (0.0-0.2); BASO % 0.7 % (0.0-1.0); EOS # 0.1 10^3/uL (0.0-0.50); EOS % 0.9 % (0.0-3.0); IMMATURE GRANULOCYTE % 0.7 % (0-0); LYMPH # 2.1 10^3/uL (1.5-6.5); LYMPH % 30.3 % (24.0-44.0); MEAN CORPUSCULAR HEMOGLOBIN 27.8 pg (27.0-33.0); MEAN CORPUSCULAR HGB CONC 33.7 g/dl (32.0-36.5); MEAN CORPUSCULAR VOLUME 82.4 fl (80.0-96.0); MONO # 0.7 10^3/uL (0.0-0.8); MONO % 9.9 % (0.0-5.0); NEUTROPHILS % 57.5 % (36.0-66.0); PLATELET COUNT, AUTOMATED 265 10^3/uL (150-450); RED CELL DISTRIBUTION WIDTH 15.2 % (11.5-14.5); WHITE BLOOD COUNT 6.9 10^3/uL (4.0-10.0)
[2017-01-03] MEDS ORDERED: NITROFURANTOIN (MACROBID) 100 MG CAP PO ONE (23:45)
[2017-01-03 23:50] LABS: CONTROL LINE HCG INT CTR LINE PRESENT
[2017-01-03 23:58] LABS: ALBUMIN 3.7 GM/DL (3.2-5.2); ALBUMIN/GLOBULIN RATIO 1.03 (1.00-1.93); ALKALINE PHOSPHATASE 89 U/L (45-117); ALT/SGPT 23 U/L (12-78); AMYLASE 51 U/L (25-115); ANION GAP 7 MEQ/L (8-16); AST/SGOT 20 U/L (15-37); BILIRUBIN,DIRECT 0.2 MG/DL (0.0-0.2); BILIRUBIN,TOTAL 0.6 MG/DL (0.2-1.0); BLOOD UREA NITROGEN 9 MG/DL (7-18); CALCIUM LEVEL 8.8 MG/DL (8.5-10.1); CARBON DIOXIDE LEVEL 25 MEQ/L (21-32); CHLORIDE LEVEL 107 MEQ/L (98-107); CREATININE FOR GFR 0.89 MG/DL (0.55-1.02); GLOMERULAR FILTRATION RATE > 60.0 (>60); GLUCOSE, FASTING 86 MG/DL (70-105); POTASSIUM SERUM 3.5 MEQ/L (3.5-5.1); SODIUM LEVEL 139 MEQ/L (136-145); TOTAL PROTEIN 7.3 GM/DL (6.4-8.2)
[2017-01-04 00:17] VITALS: BP 105/58
[2017-01-04] MEDS ORDERED: ZOFR4TAB3 PO (00:34)
[2017-01-04] MEDS ORDERED: MACR100C43 PO (00:34)
--- NOTE | 2017-01-04 00:55 | REP ---
Clinical: Acute abdominal pain. Technique: Upright view of the chest with supine and upright views of the abdomen and pelvis. Findings: Frontal upright view of the chest demonstrates no acute cardiopulmonary process or free air below the diaphragm to suspect pneumoperitoneum. Supine and upright views of the abdomen and pelvis demonstrate nonspecific bowel gas pattern without obstruction or perforation. No organomegaly. No abnormal calcifications. Skeletal structures normal for age. Impression: Nonspecific bowel gas pattern. Signed by Andrea Rowe MD 01/04/2017 12:47 A
[2017-01-21] MEDS ORDERED: ZOLO100T PO (09:35)
[2017-01-21] MEDS ORDERED: ZOFR4TAB3 PO (12:38)
== END 2017-01-04 00:43 | disposition home or self-care (01) ==
LOC: M ED 20:59
DX: N30.90 Cystitis, unspecified without hematuria (principal); J45.909 Unspecified asthma, uncomplicated; Z79.899 Other long term (current) drug therapy; Z79.3 Long term (current) use of hormonal contraceptives; Z79.51 Long term (current) use of inhaled steroids; Z88.0 Allergy status to penicillin; Z88.1 Allergy status to other antibiotic agents; Z88.8 Allergy status to other drugs, medicaments and biological substances; F17.210 Nicotine dependence, cigarettes, uncomplicated
CPT/HCPCS: 74022; 80048; 80076; 81001; 82150; 83690; 84703; 85025; 87086; 96374; 96375; 99283; J1885; J2405

== ENCOUNTER 2017-01-15 09:04 | Emergency (ER) | payer OTHER ==
[~2017-01-15] VITALS: Ht 162.6 cm; Wt 82.5 kg
[2017-01-15] MEDS ORDERED: NS 500 ML IV ONE (09:45)
[2017-01-15] MEDS ORDERED: ONDANSETRON 4MG/2ML VIAL (J2405) IV ONE (09:45)
[2017-01-15 10:25] LABS: BASO # 0.1 10^3/uL (0.0-0.2); BASO % 0.6 % (0.0-1.0); EOS % 0.3 % (0.0-3.0); IMMATURE GRANULOCYTE % 0.5 % (0-0); LYMPH # 2.2 10^3/uL (1.5-6.5); LYMPH % 24.5 % (24.0-44.0); MEAN CORPUSCULAR HEMOGLOBIN 27.5 pg (27.0-33.0); MEAN CORPUSCULAR HGB CONC 32.8 g/dl (32.0-36.5); MEAN CORPUSCULAR VOLUME 83.8 fl (80.0-96.0); MONO # 0.6 10^3/uL (0.0-0.8); MONO % 7.1 % (0.0-5.0); NEUTROPHILS # 5.9 10^3/uL (1.8-7.7); PLATELET COUNT, AUTOMATED 314 10^3/uL (150-450); RED CELL DISTRIBUTION WIDTH 15.2 % (11.5-14.5); WHITE BLOOD COUNT 8.9 10^3/uL (4.0-10.0)
[2017-01-15 10:49] LABS: ANION GAP 6 MEQ/L (8-16); BLOOD UREA NITROGEN 11 MG/DL (7-18); CALCIUM LEVEL 8.7 MG/DL (8.5-10.1); CARBON DIOXIDE LEVEL 25 MEQ/L (21-32); CHLORIDE LEVEL 112 MEQ/L (98-107); CREATININE FOR GFR 0.73 MG/DL (0.55-1.02); GLOMERULAR FILTRATION RATE > 60.0 (>60); GLUCOSE, FASTING 92 MG/DL (70-105); POTASSIUM SERUM 3.9 MEQ/L (3.5-5.1); SODIUM LEVEL 143 MEQ/L (136-145)
[2017-01-15 11:11] LABS: CONTROL LINE UCG INT CTR LINE PRESENT
--- NOTE | 2017-01-15 11:22 | REP ---
Pelvic sonography: History: Left lower quadrant pain. History of ovarian cyst. Comparison study October 25, 2016. Findings: Transabdominal and transvaginal scanning are performed. Transabdominal scanning is suboptimal due to lack of bladder filling. Uterine size is normal at 6.4 x 3.2 x 4.1 cm. Endometrial echo is 0.5 cm thick and centrally placed. No focal uterine mass is seen. Normal ovaries are seen. The right ovary measures 3.3 x 3.9 x 2.6 cm. Left ovarian dimensions are normal at 1.8 x 2.3 x 3.5 cm. Doppler flow is normal to both ovaries with resistive indices measured at 0.51 on the right and 0.60 on the left. No free fluid. Impression: Normal pelvic sonography. Signed by Paul Levi MD 01/15/2017 12:55 P
[2017-01-15] MEDS ORDERED: BACT800T5 PO (11:43)
[2017-01-15 11:50] VITALS: BP 116/54
[2017-01-21] MEDS ORDERED: ZOLO100T PO (09:35)
[2017-01-21] MEDS ORDERED: ZOFR4TAB3 PO (12:38)
== END 2017-01-15 12:39 | disposition home or self-care (01) ==
LOC: M ED 09:04
DX: N39.0 Urinary tract infection, site not specified (principal); Z72.0 Tobacco use
CPT/HCPCS: 76830; 76856; 80048; 81001; 84703; 85025; 93976; 96374; 99284; J2405

== ENCOUNTER 2017-02-04 19:42 | Emergency (ER) | payer OTHER ==
[~2017-02-04] VITALS: Ht 162.6 cm; Wt 80.5 kg
[~2017-02-04 19:42] MED LIST changes: +ZOLO100T PO
[2017-02-04 19:53] VITALS: BP_DIAS 79
[2017-02-04] MEDS ORDERED: DULO30CA PO (19:57)
[2017-02-04] MEDS ORDERED: TRAM50TA2 PO (23:42)
[2017-02-04] MEDS ORDERED: IBUP-1022 PO (23:42)
[2017-02-04] MEDS ORDERED: traMADol 50 MG TAB PO ONE (23:45)
[2017-02-04] MEDS ORDERED: IBUPROFEN 600 MG TAB PO ONE (23:45)
[2017-02-04 23:49] VITALS: BP_SYST 127
== END 2017-02-04 23:59 | disposition home or self-care (01) ==
LOC: M ED 19:42
DX: M51.36 Other intervertebral disc degeneration, lumbar region (principal); G89.29 Other chronic pain; J45.909 Unspecified asthma, uncomplicated; F33.9 Major depressive disorder, recurrent, unspecified; F17.210 Nicotine dependence, cigarettes, uncomplicated; Z79.51 Long term (current) use of inhaled steroids; Z79.899 Other long term (current) drug therapy; Z88.0 Allergy status to penicillin; Z88.8 Allergy status to other drugs, medicaments and biological substances; Z87.42 Personal history of other diseases of the female genital tract

== ENCOUNTER 2017-02-08 08:32 | Emergency (ER) | payer OTHER ==
[~2017-02-08] VITALS: Ht 162.6 cm; Wt 80.5 kg
[~2017-02-08 08:32] MED LIST changes: +DULO30CA PO; +IBUP-1022 PO; +TRAM50TA2 PO
[2017-02-08 08:33] VITALS: BP 127/58
[2017-02-08] MEDS ORDERED: ROBA500T PO (09:47)
== END 2017-02-08 10:00 | disposition home or self-care (01) ==
LOC: M ED 08:32
DX: S29.012A Strain of muscle and tendon of back wall of thorax, initial encounter (principal); X58.XXXA Exposure to other specified factors, initial encounter; Y92.89 Other specified places as the place of occurrence of the external cause; Y93.89 Activity, other specified; J45.909 Unspecified asthma, uncomplicated; Z79.899 Other long term (current) drug therapy; Z79.51 Long term (current) use of inhaled steroids; Z79.3 Long term (current) use of hormonal contraceptives; Z88.0 Allergy status to penicillin; Z88.1 Allergy status to other antibiotic agents; Z88.8 Allergy status to other drugs, medicaments and biological substances; F17.210 Nicotine dependence, cigarettes, uncomplicated

== ENCOUNTER 2017-02-17 01:14 | Emergency (ER) | payer OTHER ==
[~2017-02-17] VITALS: Ht 165.1 cm; Wt 78.6 kg
[~2017-02-17 01:14] MED LIST changes: +ROBA500T PO
[2017-02-17 01:15] VITALS: BP 136/81
[2017-02-17] MEDS ORDERED: DICL100T PO (01:24)
[2017-02-17] MEDS ORDERED: DICL1GEL TD (01:27)
--- NOTE | 2017-02-17 02:13 | ECGEPIP ---
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
== END 2017-02-17 02:12 | disposition home or self-care (01) ==
LOC: M ED 01:14
DX: M94.0 Chondrocostal junction syndrome [Tietze] (principal); J45.909 Unspecified asthma, uncomplicated; F33.9 Major depressive disorder, recurrent, unspecified; K21.9 Gastro-esophageal reflux disease without esophagitis; Z79.899 Other long term (current) drug therapy; Z79.51 Long term (current) use of inhaled steroids; Z88.0 Allergy status to penicillin; Z88.1 Allergy status to other antibiotic agents; Z88.8 Allergy status to other drugs, medicaments and biological substances; F17.210 Nicotine dependence, cigarettes, uncomplicated

== ENCOUNTER 2017-03-02 22:21 | Emergency (ER) | payer OTHER ==
[~2017-03-02] VITALS: Ht 165.1 cm; Wt 78.6 kg
[~2017-03-02 22:21] MED LIST changes: +DICL100T PO; +DICL1GEL TD
[2017-03-02] MEDS ORDERED: METHOCARBAMOL 500 MG TAB PO ONE (23:45)
[2017-03-02] MEDS ORDERED: IBUPROFEN 800 MG TAB PO ONE (23:45)
[2017-03-02] MEDS ORDERED: NORCO, ANEXSIA 5/325MG TABLET (HYDROcodone/ACETAMINOPHEN) PO ONE (23:45)
[2017-03-02] MEDS ORDERED: ROBA500T PO (23:51)
[2017-03-02] MEDS ORDERED: IBUP80TA PO (23:51)
[2017-03-03 00:14] VITALS: BP 136/74
== END 2017-03-03 00:15 | disposition home or self-care (01) ==
LOC: M ED 22:21
DX: M54.17 Radiculopathy, lumbosacral region (principal); S39.012A Strain of muscle, fascia and tendon of lower back, initial encounter; X50.9XXA Other and unspecified overexertion or strenuous movements or postures, initial encounter; Y92.018 Other place in single-family (private) house as the place of occurrence of the external cause; Y93.89 Activity, other specified; Y99.8 Other external cause status; J45.909 Unspecified asthma, uncomplicated; Z79.899 Other long term (current) drug therapy; Z88.0 Allergy status to penicillin; Z88.1 Allergy status to other antibiotic agents; Z88.8 Allergy status to other drugs, medicaments and biological substances; F17.210 Nicotine dependence, cigarettes, uncomplicated

== ENCOUNTER 2017-03-15 09:35 | Emergency (ER) | payer OTHER, MEDICAID | END 2017-03-15 11:00 | disposition home or self-care (01) | LOC: M ED 09:35 | DX: K59.00 Constipation, unspecified (principal); Z79.899 Other long term (current) drug therapy; Z79.51 Long term (current) use of inhaled steroids; Z79.3 Long term (current) use of hormonal contraceptives; Z88.0 Allergy status to penicillin; Z88.1 Allergy status to other antibiotic agents; Z88.8 Allergy status to other drugs, medicaments and biological substances; F17.210 Nicotine dependence, cigarettes, uncomplicated | CPT/HCPCS: 76856 ==

== ENCOUNTER → 2017-03-22 | Outpatient (REF) | payer OTHER ==
[2017-03-22 20:19] LABS: HEMATOCRIT 41.5 % (36.0-47.0); HEMOGLOBIN 13.7 g/dl (12.0-16.0); MEAN CORPUSCULAR HEMOGLOBIN 28.8 pg (27.0-33.0); MEAN CORPUSCULAR VOLUME 87.2 fl (80.0-96.0); PLATELET COUNT, AUTOMATED 331 10^3/uL (150-450); RED BLOOD COUNT 4.76 10^6/uL (4.00-5.40); RED CELL DISTRIBUTION WIDTH 14.1 % (11.5-14.5); WHITE BLOOD COUNT 4.5 10^3/uL (4.0-10.0)
[2017-03-22 20:40] LABS: FERRITIN 27 NG/ML (8-252); IRON (FE) 21 UG/DL (50-170); PERCENT SATURATION 5.9 % (13.2-45.0); THYROID STIMULATING HORMONE 0.776 uIU/ML (0.358-3.740); TOTAL IRON BINDING CAPACITY 354 UG/DL (250-450)
[2017-03-22 22:25] LABS: CHLAMYDIA DNA AMPLIFICATION NEGATIVE (NEGATIVE); GC DNA AMPLIFICATION NEGATIVE (NEGATIVE)
== END ==
LOC: M SFHCLERA 14:05
DX: K58.9 Irritable bowel syndrome, unspecified (principal)

== ENCOUNTER → 2017-04-02 | Outpatient (CLI) | payer OTHER, MEDICAID ==
[2017-04-02 18:16] LABS: BASO # 0.1 10^3/uL (0.0-0.2); BASO % 0.5 % (0.0-1.0); EOS % 0.2 % (0.0-3.0); HEMATOCRIT 38.5 % (36.0-47.0); HEMOGLOBIN 12.5 g/dl (12.0-16.0); IMMATURE GRANULOCYTE # 0.1 10^3/uL (0-0); IMMATURE GRANULOCYTE % 0.6 % (0-0); LYMPH # 2.2 10^3/uL (1.5-6.5); LYMPH % 17.1 % (24.0-44.0); MEAN CORPUSCULAR HEMOGLOBIN 28.2 pg (27.0-33.0); MEAN CORPUSCULAR HGB CONC 32.5 g/dl (32.0-36.5); MEAN CORPUSCULAR VOLUME 86.9 fl (80.0-96.0); MONO # 0.6 10^3/uL (0.0-0.8); MONO % 5.1 % (0.0-5.0); NEUTROPHILS # 9.6 10^3/uL (1.8-7.7); NEUTROPHILS % 76.5 % (36.0-66.0); PLATELET COUNT, AUTOMATED 358 10^3/uL (150-450); RED BLOOD COUNT 4.43 10^6/uL (4.00-5.40); RED CELL DISTRIBUTION WIDTH 14.1 % (11.5-14.5); WHITE BLOOD COUNT 12.5 10^3/uL (4.0-10.0)
[2017-04-02 18:40] LABS: ALBUMIN 4.2 GM/DL (3.2-5.2); ALKALINE PHOSPHATASE 79 U/L (45-117); ALT/SGPT 16 U/L (12-78); ANION GAP 8 MEQ/L (8-16); AST/SGOT 15 U/L (7-37); BILIRUBIN,TOTAL 0.8 MG/DL (0.2-1.0); BLOOD UREA NITROGEN 14 MG/DL (7-18); CALCIUM LEVEL 8.9 MG/DL (8.5-10.1); CARBON DIOXIDE LEVEL 26 MEQ/L (21-32); CHLORIDE LEVEL 109 MEQ/L (98-107); CREATININE FOR GFR 0.82 MG/DL (0.55-1.02); FREE T4 0.97 NG/DL (0.76-1.46); GLOMERULAR FILTRATION RATE > 60.0 (>60); GLUCOSE, FASTING 89 MG/DL (70-105); HCG, SERUM QUANTITATIVE < 1.0 MIU/ML; IRON (FE) 22 UG/DL (50-170); PERCENT SATURATION 5.7 % (13.2-45.0); POTASSIUM SERUM 4.5 MEQ/L (3.5-5.1); SODIUM LEVEL 143 MEQ/L (136-145); TOTAL IRON BINDING CAPACITY 384 UG/DL (250-450); TOTAL PROTEIN 7.2 GM/DL (6.4-8.2)
[2017-04-04 09:23] LABS: PROLACTIN 6.4 NG/ML
== END ==
LOC: M WUC 12:36
DX: R11.2 Nausea with vomiting, unspecified (principal)
CPT/HCPCS: 83550

== ENCOUNTER 2017-04-28 13:28 | Emergency (ER) | payer OTHER, MEDICAID ==
[2017-04-28] MEDS: METAXALONE 800 MG TABLET PO (15:48)
[2017-04-28] MEDS: IBUPROFEN 800 MG TAB PO (15:49)
== END 2017-04-28 17:09 | disposition home or self-care (01) ==
LOC: M ED 13:28
DX: M54.41 Lumbago with sciatica, right side (principal); M54.42 Lumbago with sciatica, left side; K21.9 Gastro-esophageal reflux disease without esophagitis; Z79.899 Other long term (current) drug therapy; Z79.51 Long term (current) use of inhaled steroids; Z88.0 Allergy status to penicillin; Z88.1 Allergy status to other antibiotic agents; Z88.8 Allergy status to other drugs, medicaments and biological substances; F17.210 Nicotine dependence, cigarettes, uncomplicated
CPT/HCPCS: 99283

== ENCOUNTER 2017-05-19 13:35 | Emergency (ER) | payer OTHER, MEDICAID ==
[2017-05-19] MEDS: NORCO, ANEXSIA 5/325MG TABLET (HYDROcodone/ACETAMINOPHEN) PO (17:22)
[2017-05-19 17:35] LABS: BASO # 0.1 10^3/uL (0.0-0.2); BASO % 0.8 % (0.0-1.0); EOS % 0.3 % (0.0-3.0); HEMATOCRIT 41.9 % (36.0-47.0); HEMOGLOBIN 13.7 g/dl (12.0-16.0); IMMATURE GRANULOCYTE % 0.4 % (0-3.0); LYMPH % 32.7 % (24.0-44.0); MEAN CORPUSCULAR HEMOGLOBIN 27.5 pg (27.0-33.0); MEAN CORPUSCULAR HGB CONC 32.7 g/dl (32.0-36.5); MONO # 0.6 10^3/uL (0.0-0.8); MONO % 6.3 % (0.0-5.0); NEUTROPHILS # 5.5 10^3/uL (1.8-7.7); NEUTROPHILS % 59.5 % (36.0-66.0); PLATELET COUNT, AUTOMATED 382 10^3/uL (150-450); RED BLOOD COUNT 4.99 10^6/uL (4.00-5.40); RED CELL DISTRIBUTION WIDTH 13.1 % (11.5-14.5); WHITE BLOOD COUNT 9.2 10^3/uL (4.0-10.0)
[2017-05-19 17:44] LABS: KETONE, URINE AUTO RFX 1+ mg/dL (NEGATIVE); LEUKOCYTE ESTERASE UR AUTO RFX 3+ (NEGATIVE); MUCUS, URINE RFX SMALL (NEGATIVE); NITRITE, URINE AUTO RFX NEGATIVE (NEGATIVE); RBC, URINE AUTO RFX 7 /HPF (0-3); SPECIFIC GRAVITY UR AUTO RFX 1.028 (1.002-1.035); SQUAM EPITHELIAL CELL UR AURFX 22 /HPF (0-6); WBC, URINE AUTO RFX TNTC /HPF (0-3)
[2017-05-19 18:10] LABS: ANION GAP 8 MEQ/L (8-16); BLOOD UREA NITROGEN 14 MG/DL (7-18); CARBON DIOXIDE LEVEL 27 MEQ/L (21-32); CHLORIDE LEVEL 107 MEQ/L (98-107); GLOMERULAR FILTRATION RATE > 60.0 (>60); GLUCOSE, FASTING 77 MG/DL (70-100); POTASSIUM SERUM 3.6 MEQ/L (3.5-5.1); SODIUM LEVEL 142 MEQ/L (136-145)
== END 2017-05-19 18:39 | disposition home or self-care (01) ==
LOC: M ED 13:35
DX: N83.291 Other ovarian cyst, right side (principal); K21.9 Gastro-esophageal reflux disease without esophagitis; M54.5 Low back pain; F41.9 Anxiety disorder, unspecified; Z79.899 Other long term (current) drug therapy; Z88.0 Allergy status to penicillin; Z88.1 Allergy status to other antibiotic agents
CPT/HCPCS: 76856

== ENCOUNTER → 2017-05-19 | Outpatient (REF) | payer OTHER, MEDICAID | LOC: M LAB REF 14:26 | DX: R31.9 Hematuria, unspecified (principal) | CPT/HCPCS: 87086 ==

== ENCOUNTER 2017-05-22 20:53 | Emergency (ER) | payer OTHER, MEDICAID ==
[2017-05-22] MEDS ORDERED: MORPHINE 2 MG/ML 1ML SYRINGE (J2270) IV (21:30)
[2017-05-22 21:43] LABS: BASO # 0.1 10^3/uL (0.0-0.2); BASO % 0.6 % (0.0-1.0); EOS # 0.1 10^3/uL (0.0-0.50); EOS % 0.4 % (0.0-3.0); HEMATOCRIT 40.8 % (36.0-47.0); HEMOGLOBIN 13.5 g/dl (12.0-16.0); IMMATURE GRANULOCYTE % 0.5 % (0-3.0); LYMPH # 3.1 10^3/uL (1.5-6.5); LYMPH % 24.3 % (24.0-44.0); MEAN CORPUSCULAR HEMOGLOBIN 27.5 pg (27.0-33.0); MEAN CORPUSCULAR HGB CONC 33.1 g/dl (32.0-36.5); MEAN CORPUSCULAR VOLUME 83.1 fl (80.0-96.0); MONO # 0.9 10^3/uL (0.0-0.8); MONO % 7.3 % (0.0-5.0); NEUTROPHILS # 8.5 10^3/uL (1.8-7.7); NEUTROPHILS % 66.9 % (36.0-66.0); PLATELET COUNT, AUTOMATED 387 10^3/uL (150-450); RED BLOOD COUNT 4.91 10^6/uL (4.00-5.40); RED CELL DISTRIBUTION WIDTH 13.3 % (11.5-14.5); WHITE BLOOD COUNT 12.7 10^3/uL (4.0-10.0)
[2017-05-22] MEDS: KETOROLAC 30 MG/ML VIAL (J1885) IV (21:58)
[2017-05-22] MEDS: ONDANSETRON 4MG/2ML VIAL (J2405) IV (21:58)
[2017-05-22 22:04] LABS: ANION GAP 8 MEQ/L (8-16); BLOOD UREA NITROGEN 13 MG/DL (7-18); C REACTIVE PROTEIN QUANTITATIV < 0.30 MG/DL (0.00-0.30); CALCIUM LEVEL 8.7 MG/DL (8.5-10.1); CARBON DIOXIDE LEVEL 25 MEQ/L (21-32); CHLORIDE LEVEL 109 MEQ/L (98-107); CREATININE FOR GFR 0.71 MG/DL (0.55-1.30); GLOMERULAR FILTRATION RATE > 60.0 (>60); GLUCOSE, FASTING 93 MG/DL (70-100); POTASSIUM SERUM 3.7 MEQ/L (3.5-5.1); SODIUM LEVEL 142 MEQ/L (136-145)
[2017-05-22 22:07] LABS: LACTIC ACID SEPSIS PROTOCOL 1.9 MMOL/L (0.4-2.0)
[2017-05-22 22:45] LABS: CONTROL LINE UCG INT CTR LINE PRESENT; URINE PREG TEST NEGATIVE (NEGATIVE)
[2017-05-22 22:49] LABS: KETONE, URINE AUTO RFX TRACE mg/dL (NEGATIVE); LEUKOCYTE ESTERASE UR AUTO RFX NEGATIVE (NEGATIVE); MUCUS, URINE RFX SMALL (NEGATIVE); NITRITE, URINE AUTO RFX NEGATIVE (NEGATIVE); RBC, URINE AUTO RFX 8 /HPF (0-3); SPECIFIC GRAVITY UR AUTO RFX 1.033 (1.002-1.035); SQUAM EPITHELIAL CELL UR AURFX 2 /HPF (0-6); WBC, URINE AUTO RFX 6 /HPF (0-3)
== END 2017-05-22 23:03 | disposition home or self-care (01) ==
LOC: M ED 20:53
DX: N83.201 Unspecified ovarian cyst, right side (principal); F41.9 Anxiety disorder, unspecified; F33.9 Major depressive disorder, recurrent, unspecified; Z79.899 Other long term (current) drug therapy; Z79.51 Long term (current) use of inhaled steroids; Z88.0 Allergy status to penicillin; Z88.8 Allergy status to other drugs, medicaments and biological substances; F17.210 Nicotine dependence, cigarettes, uncomplicated
CPT/HCPCS: J2405

== ENCOUNTER 2017-06-04 17:17 | Emergency (ER) | payer OTHER, MEDICAID ==
[2017-06-04] MEDS: ONDANSETRON 4 MG ORAL DISINTEGRATING TAB (S0181) PO ×2 (18:03)
[2017-06-04] MEDS ORDERED: ONDANSETRON 4 MG ORAL DISINTEGRATING TAB (S0181) As Ordered ×2 (18:03)
[2017-06-04] MEDS: KETOROLAC 30 MG/ML VIAL (J1885) IM ×2 (18:03)
== END 2017-06-04 18:34 | disposition home or self-care (01) ==
LOC: M ED 17:17
DX: R11.10 Vomiting, unspecified (principal); R51 Headache; F17.200 Nicotine dependence, unspecified, uncomplicated; Z79.899 Other long term (current) drug therapy; Z88.0 Allergy status to penicillin; Z88.1 Allergy status to other antibiotic agents
CPT/HCPCS: J1885

== ENCOUNTER 2017-06-07 23:02 | Emergency (ER) | payer OTHER, MEDICAID ==
[2017-06-08 02:58] LABS: KETONE, URINE AUTO RFX NEGATIVE (NEGATIVE); LEUKOCYTE ESTERASE UR AUTO RFX NEGATIVE (NEGATIVE); MUCUS, URINE RFX SMALL (NEGATIVE); NITRITE, URINE AUTO RFX NEGATIVE (NEGATIVE); RBC, URINE AUTO RFX 1 /HPF (0-3); SPECIFIC GRAVITY UR AUTO RFX 1.019 (1.002-1.035); SQUAM EPITHELIAL CELL UR AURFX 9 /HPF (0-6); WBC, URINE AUTO RFX 1 /HPF (0-3)
[2017-06-08 03:08] LABS: BASO # 0.1 10^3/uL (0.0-0.2); BASO % 0.5 % (0.0-1.0); EOS % 0.3 % (0.0-3.0); HEMATOCRIT 34.1 % (36.0-47.0); HEMOGLOBIN 11.1 g/dl (12.0-16.0); IMMATURE GRANULOCYTE % 0.3 % (0-3.0); LYMPH # 3.8 10^3/uL (1.5-6.5); LYMPH % 29.9 % (24.0-44.0); MEAN CORPUSCULAR HEMOGLOBIN 27.2 pg (27.0-33.0); MEAN CORPUSCULAR HGB CONC 32.6 g/dl (32.0-36.5); MEAN CORPUSCULAR VOLUME 83.6 fl (80.0-96.0); MONO # 0.8 10^3/uL (0.0-0.8); MONO % 6.6 % (0.0-5.0); NEUTROPHILS # 7.9 10^3/uL (1.8-7.7); NEUTROPHILS % 62.4 % (36.0-66.0); PLATELET COUNT, AUTOMATED 367 10^3/uL (150-450); RED BLOOD COUNT 4.08 10^6/uL (4.00-5.40); WHITE BLOOD COUNT 12.6 10^3/uL (4.0-10.0)
[2017-06-08 03:25] LABS: CONTROL LINE HCG INT CTR LINE PRESENT; HCG, SERUM QUALITATIVE NEGATIVE (NEGATIVE)
[2017-06-08 03:33] LABS: ALBUMIN 3.7 GM/DL (3.2-5.2); ALBUMIN/GLOBULIN RATIO 1.12 (1.00-1.93); ALKALINE PHOSPHATASE 79 U/L (45-117); ALT/SGPT 13 U/L (12-78); ANION GAP 8 MEQ/L (8-16); AST/SGOT 13 U/L (7-37); BILIRUBIN,DIRECT 0.1 MG/DL (0.0-0.2); BILIRUBIN,TOTAL 0.6 MG/DL (0.2-1.0); BLOOD UREA NITROGEN 16 MG/DL (7-18); CALCIUM LEVEL 8.6 MG/DL (8.5-10.1); CARBON DIOXIDE LEVEL 27 MEQ/L (21-32); CHLORIDE LEVEL 108 MEQ/L (98-107); CREATININE FOR GFR 0.73 MG/DL (0.55-1.30); GLOMERULAR FILTRATION RATE > 60.0 (>60); GLUCOSE, FASTING 93 MG/DL (70-100); LIPASE 176 U/L (73-393); POTASSIUM SERUM 3.5 MEQ/L (3.5-5.1); SODIUM LEVEL 143 MEQ/L (136-145)
[2017-06-08] MEDS: MORPHINE 4 MG/ML 1ML VIAL (J2270) IV (04:15)
[2017-06-08] MEDS: NS 1,000 ML IV (04:15)
[2017-06-08 06:17] LABS: CHLAMYDIA DNA AMPLIFICATION NEGATIVE (NEGATIVE); GC DNA AMPLIFICATION NEGATIVE (NEGATIVE)
[2017-06-08] MEDS: GASTROGRAFIN SOLUTION 30ML PO ×2 (07:35→08:05)
[2017-06-08] MEDS: KETOROLAC 30 MG/ML VIAL (J1885) IV (07:35)
[2017-06-08] MEDS ORDERED: ISOVUE-370 76% 100ML VIAL (Q9967) As Ordered (08:25)
== END 2017-06-08 10:18 | disposition home or self-care (01) ==
LOC: M ED 23:02
DX: R10.9 Unspecified abdominal pain (principal); Z87.42 Personal history of other diseases of the female genital tract; J45.909 Unspecified asthma, uncomplicated; F32.9 Major depressive disorder, single episode, unspecified; F41.9 Anxiety disorder, unspecified; F90.9 Attention-deficit hyperactivity disorder, unspecified type; M51.9 Unspecified thoracic, thoracolumbar and lumbosacral intervertebral disc disorder; F17.200 Nicotine dependence, unspecified, uncomplicated; Z88.0 Allergy status to penicillin; Z88.1 Allergy status to other antibiotic agents; Z79.899 Other long term (current) drug therapy; Z79.51 Long term (current) use of inhaled steroids
CPT/HCPCS: J2270

== ENCOUNTER → 2017-07-12 | Outpatient (REF) | payer OTHER, MEDICAID | LOC: M LAB REF 11:49 | DX: J02.9 Acute pharyngitis, unspecified (principal) | CPT/HCPCS: 87070 ==

== ENCOUNTER 2017-07-14 23:11 | Emergency (ER) | payer OTHER, MEDICAID | END 2017-07-15 02:36 | disposition left against medical advice (07) | LOC: M ED 23:11 | DX: Z53.29 Procedure and treatment not carried out because of patient's decision for other reasons (principal) ==

== ENCOUNTER → 2017-07-19 | Outpatient (REF) | payer OTHER ==
[2017-07-19 21:35] LABS: IRON (FE) 34 UG/DL (50-170)
[2017-07-19 21:35] LABS: FERRITIN 5 NG/ML (8-252)
== END ==
LOC: M SFHCLERA 15:19
DX: E61.1 Iron deficiency (principal)

== ENCOUNTER 2017-07-22 06:26 | Emergency (ER) | payer OTHER ==
[2017-07-22] MEDS: ONDANSETRON 4MG/2ML VIAL (J2405) IV (06:45)
[2017-07-22] MEDS: NS 1,000 ML IV (06:45)
[2017-07-22 07:12] LABS: BASO # 0.1 10^3/uL (0.0-0.2); BASO % 0.5 % (0.0-1.0); EOS # 0.1 10^3/uL (0.0-0.50); EOS % 0.6 % (0.0-3.0); HEMATOCRIT 36.6 % (36.0-47.0); HEMOGLOBIN 11.8 g/dl (12.0-15.5); IMMATURE GRANULOCYTE % 0.6 % (0-3.0); LYMPH # 3.4 10^3/uL (1.5-6.5); LYMPH % 27.5 % (24.0-44.0); MEAN CORPUSCULAR HEMOGLOBIN 25.3 pg (27.0-33.0); MEAN CORPUSCULAR HGB CONC 32.2 g/dl (32.0-36.5); MEAN CORPUSCULAR VOLUME 78.4 fl (80.0-96.0); MONO # 0.9 10^3/uL (0.0-0.8); MONO % 7.5 % (0.0-5.0); NEUTROPHILS # 7.8 10^3/uL (1.8-7.7); NEUTROPHILS % 63.3 % (36.0-66.0); PLATELET COUNT, AUTOMATED 366 10^3/uL (150-450); RED BLOOD COUNT 4.67 10^6/uL (4.00-5.40); RED CELL DISTRIBUTION WIDTH 15.2 % (11.5-14.5); WHITE BLOOD COUNT 12.4 10^3/uL (4.0-10.0)
[2017-07-22 07:20] LABS: KETONE, URINE AUTO RFX NEGATIVE (NEGATIVE); MUCUS, URINE RFX LARGE (NEGATIVE); NITRITE, URINE AUTO RFX NEGATIVE (NEGATIVE); RBC, URINE AUTO RFX 3 /HPF (0-3); SPECIFIC GRAVITY UR AUTO RFX 1.029 (1.002-1.035); SQUAM EPITHELIAL CELL UR AURFX 9 /HPF (0-6); WBC, URINE AUTO RFX 5 /HPF (0-3)
[2017-07-22 07:28] LABS: CONTROL LINE HCG INT CTR LINE PRESENT; HCG, SERUM QUALITATIVE POSITIVE (NEGATIVE)
[2017-07-22 07:38] LABS: ALBUMIN 3.6 GM/DL (3.2-5.2); ALBUMIN/GLOBULIN RATIO 0.92 (1.00-1.93); ALKALINE PHOSPHATASE 83 U/L (45-117); ALT/SGPT 12 U/L (12-78); AMYLASE 50 U/L (25-115); ANION GAP 9 MEQ/L (8-16); AST/SGOT 14 U/L (7-37); BILIRUBIN,DIRECT 0.1 MG/DL (0.0-0.2); BILIRUBIN,TOTAL 0.7 MG/DL (0.2-1.0); BLOOD UREA NITROGEN 10 MG/DL (7-18); CARBON DIOXIDE LEVEL 25 MEQ/L (21-32); CHLORIDE LEVEL 106 MEQ/L (98-107); CREATININE FOR GFR 0.75 MG/DL (0.55-1.30); GLOMERULAR FILTRATION RATE > 60.0 (>60); GLUCOSE, FASTING 91 MG/DL (70-100); LIPASE 117 U/L (73-393); POTASSIUM SERUM 3.4 MEQ/L (3.5-5.1); SODIUM LEVEL 140 MEQ/L (136-145); TOTAL PROTEIN 7.5 GM/DL (6.4-8.2)
[2017-07-22] MEDS: METOCLOPRAMIDE INJ 10MG/2ML VIAL (J2765) IV (07:43)
[2017-07-22] MEDS: diphenhydrAMINE INJ 50MG/ML VIAL (J1200) IV (07:43)
[2017-07-22 08:06] LABS: HCG, SERUM QUANTITATIVE 63406 MIU/ML
[2017-07-22 08:10] LABS: LEUKOCYTE ESTERASE UR AUTO RFX TRACE (NEGATIVE)
== END 2017-07-22 09:53 | disposition home or self-care (01) ==
LOC: M ED 06:26
DX: O99.281 Endocrine, nutritional and metabolic diseases complicating pregnancy, first trimester (principal); E86.0 Dehydration; J45.909 Unspecified asthma, uncomplicated; O99.611 Diseases of the digestive system complicating pregnancy, first trimester; K21.9 Gastro-esophageal reflux disease without esophagitis; O99.341 Other mental disorders complicating pregnancy, first trimester; F41.9 Anxiety disorder, unspecified; O99.331 Smoking (tobacco) complicating pregnancy, first trimester; F17.210 Nicotine dependence, cigarettes, uncomplicated; Z3A.01 Less than 8 weeks gestation of pregnancy; Z98.890 Other specified postprocedural states; Z87.42 Personal history of other diseases of the female genital tract; Z88.0 Allergy status to penicillin; Z88.8 Allergy status to other drugs, medicaments and biological substances; Z79.899 Other long term (current) drug therapy; Z79.51 Long term (current) use of inhaled steroids
CPT/HCPCS: J1200

== ENCOUNTER → 2017-07-25 | Outpatient (REF) | payer OTHER ==
[2017-07-27 09:05] LABS: RUBELLA IgG QUALITATIVE IMMUNE (IMMUNE)
[2017-07-27 09:35] LABS: HEPATITIS C VIRUS ABY INDEX < 0.0 INDEX (<0.8)
[2017-07-27 09:36] LABS: HIV 1&2 SCREEN CENTAUR NEGATIVE (NEGATIVE)
[2017-07-27 09:44] LABS: HEPATITIS B SURFACE ANTIBODY NEGATIVE (POSITIVE)
== END ==
LOC: M LAB REF 17:16
DX: Z34.81 Encounter for supervision of other normal pregnancy, first trimester (principal); Z3A.00 Weeks of gestation of pregnancy not specified

== ENCOUNTER → 2017-08-05 | Outpatient (REF) | payer OTHER, MEDICAID | LOC: M LAB REF 11:44 | DX: R30.0 Dysuria (principal) | CPT/HCPCS: 87086 ==

== ENCOUNTER 2017-08-06 09:14 | Emergency (ER) | payer OTHER, MEDICAID ==
[2017-08-06] MEDS: NS 1,000 ML IV (10:15)
[2017-08-06] MEDS: METOCLOPRAMIDE INJ 10MG/2ML VIAL (J2765) IV (10:15)
[2017-08-06] MEDS: ACETAMINOPHEN TAB 650MG DOSE (2X325MG) PO (10:15)
[2017-08-06 10:24] LABS: KETONE, URINE AUTO RFX TRACE mg/dL (NEGATIVE); MUCUS, URINE RFX MODERATE (NEGATIVE); NITRITE, URINE AUTO RFX NEGATIVE (NEGATIVE); RBC, URINE AUTO RFX 26 /HPF (0-3); SPECIFIC GRAVITY UR AUTO RFX 1.027 (1.002-1.035); SQUAM EPITHELIAL CELL UR AURFX 35 /HPF (0-6); TRANSITIONAL EPITHELIAL AU RFX <1 /HPF
[2017-08-06 10:27] LABS: BASO % 0.4 % (0.0-1.0); EOS % 0.2 % (0.0-3.0); HEMATOCRIT 37.3 % (36.0-47.0); IMMATURE GRANULOCYTE % 0.5 % (0-3.0); LYMPH # 1.9 10^3/uL (1.5-6.5); LYMPH % 17.9 % (24.0-44.0); MEAN CORPUSCULAR HEMOGLOBIN 25.3 pg (27.0-33.0); MEAN CORPUSCULAR HGB CONC 32.2 g/dl (32.0-36.5); MEAN CORPUSCULAR VOLUME 78.5 fl (80.0-96.0); MONO # 0.7 10^3/uL (0.0-0.8); MONO % 6.4 % (0.0-5.0); NEUTROPHILS # 7.7 10^3/uL (1.8-7.7); NEUTROPHILS % 74.6 % (36.0-66.0); PLATELET COUNT, AUTOMATED 312 10^3/uL (150-450); RED BLOOD COUNT 4.75 10^6/uL (4.00-5.40); RED CELL DISTRIBUTION WIDTH 15.3 % (11.5-14.5); WHITE BLOOD COUNT 10.4 10^3/uL (4.0-10.0)
[2017-08-06 11:07] LABS: LEUKOCYTE ESTERASE UR AUTO RFX 3+ (NEGATIVE); WBC, URINE AUTO RFX 46 /HPF (0-3)
[2017-08-06 11:21] LABS: ANION GAP 8 MEQ/L (8-16); BLOOD UREA NITROGEN 10 MG/DL (7-18); CALCIUM LEVEL 8.3 MG/DL (8.5-10.1); CARBON DIOXIDE LEVEL 23 MEQ/L (21-32); CHLORIDE LEVEL 107 MEQ/L (98-107); CREATININE FOR GFR 0.74 MG/DL (0.55-1.30); GLOMERULAR FILTRATION RATE > 60.0 (>60); GLUCOSE, FASTING 85 MG/DL (70-100); HCG, SERUM QUANTITATIVE 191786 MIU/ML; POTASSIUM SERUM 3.7 MEQ/L (3.5-5.1); SODIUM LEVEL 138 MEQ/L (136-145)
== END 2017-08-06 12:18 | disposition home or self-care (01) ==
LOC: M ED 09:14
DX: O23.41 Unspecified infection of urinary tract in pregnancy, first trimester (principal); O99.511 Diseases of the respiratory system complicating pregnancy, first trimester; O26.891 Other specified pregnancy related conditions, first trimester; O99.341 Other mental disorders complicating pregnancy, first trimester; O99.331 Smoking (tobacco) complicating pregnancy, first trimester; Z3A.08 8 weeks gestation of pregnancy; Z88.0 Allergy status to penicillin; Z88.1 Allergy status to other antibiotic agents
CPT/HCPCS: J2765

== ENCOUNTER → 2017-08-15 | Outpatient (REF) | payer OTHER | LOC: M LAB REF 08-16 18:51 | DX: R19.7 Diarrhea, unspecified (principal) ==

== ENCOUNTER → 2017-08-23 | Outpatient (CLI) | payer OTHER ==
[2017-08-23 17:01] LABS: ALBUMIN 3.4 GM/DL (3.2-5.2); ALBUMIN/GLOBULIN RATIO 1.06 (1.00-1.93); ALKALINE PHOSPHATASE 73 U/L (45-117); ALT/SGPT 14 U/L (12-78); ANION GAP 12 MEQ/L (8-16); AST/SGOT 13 U/L (7-37); BILIRUBIN,TOTAL 1.2 MG/DL (0.2-1.0); BLOOD UREA NITROGEN 9 MG/DL (7-18); CALCIUM LEVEL 8.8 MG/DL (8.5-10.1); CARBON DIOXIDE LEVEL 22 MEQ/L (21-32); CHLORIDE LEVEL 105 MEQ/L (98-107); CREATININE FOR GFR 0.67 MG/DL (0.55-1.30); GLOMERULAR FILTRATION RATE > 60.0 (>60); GLUCOSE, FASTING 68 MG/DL (70-100); LIPASE 112 U/L (73-393); POTASSIUM SERUM 3.9 MEQ/L (3.5-5.1); SODIUM LEVEL 139 MEQ/L (136-145); TOTAL PROTEIN 6.6 GM/DL (6.4-8.2)
[2017-08-23 17:13] LABS: BASO # 0.1 10^3/uL (0.0-0.2); BASO % 0.4 % (0.0-1.0); EOS % 0.2 % (0.0-3.0); HEMATOCRIT 35.7 % (36.0-47.0); HEMOGLOBIN 11.5 g/dl (12.0-15.5); IMMATURE GRANULOCYTE % 0.5 % (0-3.0); LYMPH # 1.6 10^3/uL (1.5-6.5); LYMPH % 11.7 % (24.0-44.0); MEAN CORPUSCULAR HEMOGLOBIN 25.6 pg (27.0-33.0); MEAN CORPUSCULAR HGB CONC 32.2 g/dl (32.0-36.5); MEAN CORPUSCULAR VOLUME 79.5 fl (80.0-96.0); MONO # 0.7 10^3/uL (0.0-0.8); MONO % 5.5 % (0.0-5.0); NEUTROPHILS # 10.8 10^3/uL (1.8-7.7); NEUTROPHILS % 81.7 % (36.0-66.0); PLATELET COUNT, AUTOMATED 320 10^3/uL (150-450); RED BLOOD COUNT 4.49 10^6/uL (4.00-5.40); RED CELL DISTRIBUTION WIDTH 15.9 % (11.5-14.5); WHITE BLOOD COUNT 13.3 10^3/uL (4.0-10.0)
== END ==
LOC: M WUC 11:40
DX: R11.2 Nausea with vomiting, unspecified (principal)
CPT/HCPCS: 83690

== ENCOUNTER → 2017-08-24 | Outpatient (REF) | payer OTHER ==
[2017-08-24 20:16] LABS: CHLAMYDIA DNA AMPLIFICATION NEGATIVE (NEGATIVE); GC DNA AMPLIFICATION NEGATIVE (NEGATIVE)
== END ==
LOC: M LAB REF 16:49
DX: Z34.81 Encounter for supervision of other normal pregnancy, first trimester (principal); Z3A.00 Weeks of gestation of pregnancy not specified

== ENCOUNTER → 2017-09-01 | Outpatient (CLI) | payer OTHER ==
[2017-09-06 00:06] LABS: CHROMOGRANIN A <1 nmol/L (0-5); TISSUE TRANSGLUTAMINASE IgA <2 U/mL (0-3)
[2017-09-06 00:06] LABS: GASTRIN 11 pg/mL (0-115)
== END ==
LOC: M LAB 09:33
DX: R19.7 Diarrhea, unspecified (principal)
CPT/HCPCS: 82941

== ENCOUNTER → 2017-09-12 | Outpatient (CLI) | payer OTHER ==
[2017-09-12 16:36] LABS: BASO % 0.3 % (0.0-1.0); EOS % 0.3 % (0.0-3.0); HEMATOCRIT 36.4 % (36.0-47.0); HEMOGLOBIN 11.8 g/dl (12.0-15.5); IMMATURE GRANULOCYTE % 0.5 % (0-3.0); LYMPH % 15.9 % (24.0-44.0); MEAN CORPUSCULAR HEMOGLOBIN 25.1 pg (27.0-33.0); MEAN CORPUSCULAR HGB CONC 32.4 g/dl (32.0-36.5); MEAN CORPUSCULAR VOLUME 77.3 fl (80.0-96.0); MONO # 0.7 10^3/uL (0.0-0.8); MONO % 5.8 % (0.0-5.0); NEUTROPHILS # 9.4 10^3/uL (1.8-7.7); NEUTROPHILS % 77.2 % (36.0-66.0); PLATELET COUNT, AUTOMATED 317 10^3/uL (150-450); RED BLOOD COUNT 4.71 10^6/uL (4.00-5.40); WHITE BLOOD COUNT 12.2 10^3/uL (4.0-10.0)
[2017-09-12 16:59] LABS: ALBUMIN 3.4 GM/DL (3.2-5.2); ALKALINE PHOSPHATASE 67 U/L (45-117); ALT/SGPT 12 U/L (12-78); AMYLASE 57 U/L (25-115); ANION GAP 9 MEQ/L (8-16); AST/SGOT 11 U/L (7-37); BILIRUBIN,TOTAL 0.9 MG/DL (0.2-1.0); BLOOD UREA NITROGEN 10 MG/DL (7-18); CALCIUM LEVEL 8.8 MG/DL (8.5-10.1); CARBON DIOXIDE LEVEL 26 MEQ/L (21-32); CHLORIDE LEVEL 105 MEQ/L (98-107); CREATININE FOR GFR 0.69 MG/DL (0.55-1.30); FREE T4 0.97 NG/DL (0.76-1.46); GLOMERULAR FILTRATION RATE > 60.0 (>60); GLUCOSE, FASTING 78 MG/DL (70-100); LIPASE 131 U/L (73-393); POTASSIUM SERUM 3.9 MEQ/L (3.5-5.1); SODIUM LEVEL 140 MEQ/L (136-145); TOTAL PROTEIN 6.8 GM/DL (6.4-8.2)
== END ==
LOC: M WUC 12:08
DX: R11.2 Nausea with vomiting, unspecified (principal); N39.0 Urinary tract infection, site not specified
CPT/HCPCS: 82150

== ENCOUNTER 2017-11-05 09:10 | Outpatient (CLI) | payer OTHER, MEDICAID ==
[2017-11-05] MEDS ORDERED: LACTATED RINGER'S 1000 ML IV (10:15)
== END 2017-11-05 11:52 | disposition home or self-care (01) ==
LOC: M LDO 09:10
DX: O26.892 Other specified pregnancy related conditions, second trimester (principal); R10.30 Lower abdominal pain, unspecified; M54.5 Low back pain; Z3A.22 22 weeks gestation of pregnancy

== ENCOUNTER 2017-12-04 00:17 | Emergency (ER) | payer OTHER, MEDICAID | END 2017-12-04 04:31 | disposition home or self-care (01) | LOC: M ED 00:17 | DX: O99.89 Other specified diseases and conditions complicating pregnancy, childbirth and the puerperium (principal); S50.11XA Contusion of right forearm, initial encounter; S50.12XA Contusion of left forearm, initial encounter; Y04.8XXA Assault by other bodily force, initial encounter; Y92.9 Unspecified place or not applicable; Y93.9 Activity, unspecified; Y99.9 Unspecified external cause status; Z79.899 Other long term (current) drug therapy; Z88.0 Allergy status to penicillin; Z88.1 Allergy status to other antibiotic agents | CPT/HCPCS: 76815 ==

== ENCOUNTER → 2017-12-14 | Outpatient (REF) | payer OTHER | LOC: M LAB REF 13:01 | DX: J02.9 Acute pharyngitis, unspecified (principal) ==

== ENCOUNTER 2017-12-16 14:10 | Emergency (ER) | payer OTHER | END 2017-12-16 15:53 | disposition home or self-care (01) | LOC: M ED 14:10 | DX: J06.9 Acute upper respiratory infection, unspecified (principal); F17.200 Nicotine dependence, unspecified, uncomplicated; M54.9 Dorsalgia, unspecified; G89.29 Other chronic pain; Z88.0 Allergy status to penicillin; Z88.8 Allergy status to other drugs, medicaments and biological substances | CPT/HCPCS: 87880 ==

== ENCOUNTER 2017-12-19 15:03 | Emergency (ER) | payer OTHER ==
[2017-12-19] MEDS: NS 1,000 ML IV ×2 (17:20)
[2017-12-19 17:27] LABS: HEMATOCRIT 31.2 % (36.0-47.0); HEMOGLOBIN 9.8 g/dl (12.0-15.5); MEAN CORPUSCULAR HEMOGLOBIN 24.9 pg (27.0-33.0); MEAN CORPUSCULAR HGB CONC 31.4 g/dl (32.0-36.5); MEAN CORPUSCULAR VOLUME 79.2 fl (80.0-96.0); PLATELET COUNT, AUTOMATED 294 10^3/uL (150-450); RED BLOOD COUNT 3.94 10^6/uL (4.00-5.40); RED CELL DISTRIBUTION WIDTH 15.5 % (11.5-14.5); WHITE BLOOD COUNT 11.3 10^3/uL (4.0-10.0)
[2017-12-19 17:52] LABS: ANION GAP 8 MEQ/L (8-16); BLOOD UREA NITROGEN 11 MG/DL (7-18); CALCIUM LEVEL 8.3 MG/DL (8.5-10.1); CARBON DIOXIDE LEVEL 24 MEQ/L (21-32); CHLORIDE LEVEL 109 MEQ/L (98-107); CREATININE FOR GFR 0.52 MG/DL (0.55-1.30); GLOMERULAR FILTRATION RATE > 60.0 (>60); GLUCOSE, FASTING 91 MG/DL (70-100); POTASSIUM SERUM 3.6 MEQ/L (3.5-5.1); SODIUM LEVEL 141 MEQ/L (136-145)
== END 2017-12-19 18:11 | disposition home or self-care (01) ==
LOC: M ED 15:03
DX: O99.512 Diseases of the respiratory system complicating pregnancy, second trimester (principal); O98.512 Other viral diseases complicating pregnancy, second trimester; O99.612 Diseases of the digestive system complicating pregnancy, second trimester; Z87.440 Personal history of urinary (tract) infections; O99.89 Other specified diseases and conditions complicating pregnancy, childbirth and the puerperium; G89.29 Other chronic pain; M54.9 Dorsalgia, unspecified; O99.331 Smoking (tobacco) complicating pregnancy, first trimester; Z79.899 Other long term (current) drug therapy; Z88.0 Allergy status to penicillin; Z88.1 Allergy status to other antibiotic agents
CPT/HCPCS: 71046

== ENCOUNTER → 2017-12-21 | Outpatient (CLI) | payer OTHER ==
[2017-12-21 12:56] LABS: HEMATOCRIT 30.7 % (36.0-47.0); HEMOGLOBIN 9.7 g/dl (12.0-15.5); MEAN CORPUSCULAR HEMOGLOBIN 24.3 pg (27.0-33.0); MEAN CORPUSCULAR HGB CONC 31.6 g/dl (32.0-36.5); MEAN CORPUSCULAR VOLUME 76.9 fl (80.0-96.0); PLATELET COUNT, AUTOMATED 327 10^3/uL (150-450); RED BLOOD COUNT 3.99 10^6/uL (4.00-5.40); RED CELL DISTRIBUTION WIDTH 15.5 % (11.5-14.5); WHITE BLOOD COUNT 13.2 10^3/uL (4.0-10.0)
[2017-12-21 13:34] LABS: GLUCOSE CHALLENGE TEST 1 HOUR 82 MG/DL (LESS THAN 140)
== END ==
LOC: M LAB 11:26
DX: Z34.02 Encounter for supervision of normal first pregnancy, second trimester (principal); Z36.89 Encounter for other specified antenatal screening
CPT/HCPCS: 82950

== ENCOUNTER 2018-01-02 14:51 | Outpatient (CLI) | payer OTHER ==
[2018-01-02 16:11] LABS: APPEARANCE, URINE CLOUDY (CLEAR); BACTERIA, URINE AUTO 2+ (NEGATIVE); BILIRUBIN, URINE AUTO NEGATIVE (NEGATIVE); BLOOD, URINE BLOOD NEGATIVE (NEGATIVE); COLOR, URINE YELLOW (YELLOW); GLUCOSE, URINE (UA) AUTO NEGATIVE (NEGATIVE); KETONE, URINE AUTO NEGATIVE (NEGATIVE); LEUKOCYTE ESTERASE, URINE AUTO 3+ (NEGATIVE); MUCUS, URINE SMALL (NEGATIVE); NITRITE, URINE AUTO NEGATIVE (NEGATIVE); PROTEIN, URINE AUTO 2+ mg/dL (NEGATIVE); RBC, URINE AUTO 1 /HPF (0-3); SPECIFIC GRAVITY URINE AUTO 1.023 (1.002-1.035); SQUAMOUS EPITHELIAL CELL UR AU 14 /HPF (0-6); UROBILINOGEN, URINE AUTO 0.2 mg/dL (0.0-2.0); WBC, URINE AUTO 25 /HPF (0-3); YEAST LIKE CELL URINE AUTO SMALL
== END 2018-01-02 17:15 | disposition home or self-care (01) ==
LOC: M LDO 14:51
DX: O23.43 Unspecified infection of urinary tract in pregnancy, third trimester (principal); Z3A.30 30 weeks gestation of pregnancy; B37.3 Candidiasis of vulva and vagina
CPT/HCPCS: 81001

== ENCOUNTER 2018-01-09 14:28 | Emergency (ER) | payer OTHER ==
[2018-01-09 15:16] LABS: BASO # 0.1 10^3/uL (0.0-0.2); BASO % 0.5 % (0.0-1.0); EOS # 0.1 10^3/uL (0.0-0.50); EOS % 0.4 % (0.0-3.0); HEMATOCRIT 29.1 % (36.0-47.0); HEMOGLOBIN 9.3 g/dl (12.0-15.5); IMMATURE GRANULOCYTE % 1.3 % (0-3.0); LYMPH % 15.7 % (24.0-44.0); MEAN CORPUSCULAR HEMOGLOBIN 24.3 pg (27.0-33.0); MONO % 7.7 % (0.0-5.0); NEUTROPHILS # 9.5 10^3/uL (1.8-7.7); NEUTROPHILS % 74.4 % (36.0-66.0); PLATELET COUNT, AUTOMATED 271 10^3/uL (150-450); RED BLOOD COUNT 3.83 10^6/uL (4.00-5.40); RED CELL DISTRIBUTION WIDTH 15.4 % (11.5-14.5); WHITE BLOOD COUNT 12.7 10^3/uL (4.0-10.0)
[2018-01-09 15:37] LABS: LIPASE 176 U/L (73-393)
[2018-01-09 15:42] LABS: CONTROL LINE HCG INT CTR LINE PRESENT; HCG, SERUM QUALITATIVE POSITIVE (NEGATIVE)
[2018-01-09 15:44] LABS: ALBUMIN 2.6 GM/DL (3.2-5.2); ALBUMIN/GLOBULIN RATIO 0.81 (1.00-1.93); ALKALINE PHOSPHATASE 93 U/L (45-117); ALT/SGPT 12 U/L (12-78); ANION GAP 9 MEQ/L (8-16); AST/SGOT 15 U/L (7-37); BILIRUBIN,DIRECT < 0.1 MG/DL (0.0-0.2); BILIRUBIN,TOTAL 0.4 MG/DL (0.2-1.0); BLOOD UREA NITROGEN 9 MG/DL (7-18); CALCIUM LEVEL 8.1 MG/DL (8.5-10.1); CARBON DIOXIDE LEVEL 23 MEQ/L (21-32); CHLORIDE LEVEL 108 MEQ/L (98-107); GLOMERULAR FILTRATION RATE > 60.0 (>60); GLUCOSE, FASTING 80 MG/DL (70-100); POTASSIUM SERUM 3.8 MEQ/L (3.5-5.1); SODIUM LEVEL 140 MEQ/L (136-145); TOTAL PROTEIN 5.8 GM/DL (6.4-8.2)
[2018-01-09] MEDS: ACETAMINOPHEN 325 MG TAB PO (16:46)
== END 2018-01-09 19:15 | disposition admitted as inpatient to this hospital (09) ==
LOC: M ED 14:28
DX: Z04.1 Encounter for examination and observation following transport accident (principal); V49.40XA Driver injured in collision with unspecified motor vehicles in traffic accident, initial encounter; Y92.410 Unspecified street and highway as the place of occurrence of the external cause; Z3A.31 31 weeks gestation of pregnancy; O99.513 Diseases of the respiratory system complicating pregnancy, third trimester; O99.333 Smoking (tobacco) complicating pregnancy, third trimester; F17.210 Nicotine dependence, cigarettes, uncomplicated; Z88.0 Allergy status to penicillin; Z88.1 Allergy status to other antibiotic agents; Z79.2 Long term (current) use of antibiotics; Z79.51 Long term (current) use of inhaled steroids
CPT/HCPCS: 76700

== ENCOUNTER 2018-01-09 19:16 | Outpatient (CLI) | payer OTHER | END 2018-01-09 20:35 | disposition home or self-care (01) | LOC: M LDO 19:16 | DX: Z04.3 Encounter for examination and observation following other accident (principal); Z3A.32 32 weeks gestation of pregnancy | CPT/HCPCS: 59025 ==

== ENCOUNTER → 2018-01-13 | Outpatient (CLI) | payer OTHER ==
[2018-01-17 00:06] LABS: LEAD BLOOD ADULT <1 ug/dL (0-4)
== END ==
LOC: M LAB 18:26
DX: Z34.83 Encounter for supervision of other normal pregnancy, third trimester (principal)
CPT/HCPCS: 83655

== ENCOUNTER 2018-01-26 08:45 | Emergency (ER) | payer OTHER ==
[2018-01-26] MEDS: ALBUTEROL SULFATE 2.5 MG/0.5 ML INH NEB SOLN NEB (09:21)
[2018-01-26 10:09] LABS: INFLUENZA A AMPLIFICATION NEGATIVE (NEGATIVE); INFLUENZA B AMPLIFICATION NEGATIVE (NEGATIVE)
== END 2018-01-26 10:37 | disposition home or self-care (01) ==
LOC: M ED 08:45
DX: O99.513 Diseases of the respiratory system complicating pregnancy, third trimester (principal); J45.901 Unspecified asthma with (acute) exacerbation; J06.9 Acute upper respiratory infection, unspecified; O99.63 Diseases of the digestive system complicating the puerperium; K21.9 Gastro-esophageal reflux disease without esophagitis; Z87.42 Personal history of other diseases of the female genital tract; M54.9 Dorsalgia, unspecified; Z88.0 Allergy status to penicillin; Z88.1 Allergy status to other antibiotic agents; Z3A.33 33 weeks gestation of pregnancy; O99.333 Smoking (tobacco) complicating pregnancy, third trimester; F17.210 Nicotine dependence, cigarettes, uncomplicated; Z79.899 Other long term (current) drug therapy; Z79.51 Long term (current) use of inhaled steroids
CPT/HCPCS: 94640

== ENCOUNTER 2018-01-30 02:28 | Emergency (ER) | payer OTHER ==
[2018-01-30] MEDS: AZITHROMYCIN 250 MG TAB PO (03:23)
[2018-01-30] MEDS: CORTISPORIN OTIC SOLN 10 ML BTL AS (03:23)
== END 2018-01-30 03:24 | disposition home or self-care (01) ==
LOC: M ED 02:28
DX: H60.90 Unspecified otitis externa, unspecified ear (principal); Z72.0 Tobacco use; Z79.899 Other long term (current) drug therapy; Z88.0 Allergy status to penicillin; Z88.1 Allergy status to other antibiotic agents
CPT/HCPCS: 99282

== ENCOUNTER → 2018-01-30 | Outpatient (REF) | payer OTHER | LOC: M LAB REF 13:03 | DX: Z34.83 Encounter for supervision of other normal pregnancy, third trimester (principal) ==

== ENCOUNTER 2018-02-26 09:12 | Outpatient (CLI) | payer OTHER, MEDICAID | END 2018-02-26 11:00 | disposition home or self-care (01) | LOC: M LDO 09:12 | DX: O47.9 False labor, unspecified (principal); Z3A.38 38 weeks gestation of pregnancy; O99.513 Diseases of the respiratory system complicating pregnancy, third trimester; J45.909 Unspecified asthma, uncomplicated; O99.343 Other mental disorders complicating pregnancy, third trimester; F90.9 Attention-deficit hyperactivity disorder, unspecified type | CPT/HCPCS: 59025 ==

== ENCOUNTER 2018-03-07 12:55 | Inpatient (IN) | payer OTHER, MEDICAID ==
[2018-03-07] MEDS: LR 1,000 ML IV ×2 (13:32→20:54)
[2018-03-07] MEDS ORDERED: CLINDAMYCIN 900 MG/50 ML PREMIX BAG As Ordered (13:39)
[2018-03-07] MEDS: CLINDAMYCIN 900 MG in APPROPRIATE DILUENT 1 EA IV ×2 (13:45→21:45)
[2018-03-07 13:50] LABS: HEMATOCRIT 32.3 % (36.0-47.0); HEMOGLOBIN 9.7 g/dl (12.0-15.5); MEAN CORPUSCULAR HEMOGLOBIN 21.8 pg (27.0-33.0); MEAN CORPUSCULAR VOLUME 72.6 fl (80.0-96.0); PLATELET COUNT, AUTOMATED 293 10^3/uL (150-450); RED BLOOD COUNT 4.45 10^6/uL (4.00-5.40); RED CELL DISTRIBUTION WIDTH 17.1 % (11.5-14.5); WHITE BLOOD COUNT 16.5 10^3/uL (4.0-10.0)
[2018-03-07] MEDS: LR 800 ML IV (14:30)
[2018-03-07] MEDS ORDERED: FENTANYL 2MCG/ML ROPIVACAINE 0.2% IN 0.9% NACL 100ML IVBAG As Ordered (14:36)
[2018-03-07] MEDS ORDERED: LACTATED RINGER'S 1000 ML IV (16:45)
[2018-03-07] MEDS ORDERED: diphenhydrAMINE INJ 50MG/ML VIAL (J1200) IV (16:45)
[2018-03-07] MEDS ORDERED: EPIDURAL COMMENT XX (16:45)
[2018-03-07] MEDS ORDERED: REFRIGERATOR IV KEYS XX (16:45)
[2018-03-07] MEDS ORDERED: ePHEDrine SULFATE 25 MG/5 ML(5MG/ML) SYRINGE IV (16:45)
[2018-03-07] MEDS ORDERED: EPIDURAL/PCA KEYS XX (16:45)
[2018-03-07] MEDS: FENTANYL/ROPIVACAINE/NACL BAG 100 ML EPIDURAL (16:45)
[2018-03-07] MEDS ORDERED: NALOXONE INJ 0.4 MG/1 ML VIAL (J2310) IV (16:45)
[2018-03-07] MEDS ORDERED: ONDANSETRON 4MG/2ML VIAL (J2405) IV (16:45)
[2018-03-07] MEDS ORDERED: OXYTOCIN 30 UNITS IN 0.9% NaCl 500ML IV BAG (J2590) As Ordered (17:50)
[2018-03-07] MEDS: OXYTOCIN DRIP 30 UNITS in APPROPRIATE DILUENT 1 EA IV ×2 (17:56→23:06)
[2018-03-07] MEDS ORDERED: DOCUSATE SODIUM 100 MG CAP PO (23:15)
[2018-03-07] MEDS ORDERED: METHYLERGONOVINE MALEATE 0.2 MG TAB PO (23:15)
[2018-03-07] MEDS ORDERED: MEASLES,MUMPS,RUBELLA VACCINE INJ (MMR-II) (90707) SC (23:15)
[2018-03-07] MEDS ORDERED: DIBUCAINE 1% OINTMENT 30GM TOP (23:15)
[2018-03-07] MEDS ORDERED: RHOGAM 300 MCG (1500 IU) INJ (J2790) IM (23:15)
[2018-03-07 23:32] LABS: CORD GAS ABE A -2.6; CORD GAS ABE V -2.3; CORD GAS HCO3 A 23.5 MEQ/L; CORD GAS HCO3 V 22.8 MEQ/L; CORD GAS O2 SAT A 43.2 %; CORD GAS O2 SAT V 61.4 %; CORD GAS PCO2 A 45.9 mmHg; CORD GAS PCO2 V 40.2 mmHg; CORD GAS PH A 7.328 UNITS; CORD GAS PH V 7.371 UNITS; CORD GAS SBC A 21.1 MEQ/L; CORD GAS SBC V 21.7 MEQ/L
[2018-03-08] MEDS: IBUPROFEN 800 MG TAB PO ×3 (00:25→19:32)
[2018-03-08] MEDS: PRENATAL VITAMINS CHEWABLE TABLET PO (08:25)
[2018-03-08] MEDS: ACETAMINOPHEN 500 MG TAB PO ×2 (08:26→18:22)
[2018-03-09] MEDS: PRENATAL VITAMINS CHEWABLE TABLET PO (08:32)
== END 2018-03-09 11:05 | disposition home or self-care (01) | DRG 560 ==
LOC: M LDI 12:55 → M OBS 03-08 01:20
PROVIDERS: Obstetrics & Gynecology
PROC: 10E0XZZ Delivery of Products of Conception, External Approach (ICD-10-PCS; principal; 2018-03-07)
PROC: 10907ZC Drainage of Amniotic Fluid, Therapeutic from Products of Conception, Via Natural or Artificial Opening (ICD-10-PCS; 2018-03-07)
DX: O99.334 Smoking (tobacco) complicating childbirth (principal); F17.200 Nicotine dependence, unspecified, uncomplicated; Z37.0 Single live birth; Z3A.39 39 weeks gestation of pregnancy; O99.820 Streptococcus B carrier state complicating pregnancy

== ENCOUNTER → 2018-03-28 | Outpatient (REF) | payer OTHER, MEDICAID ==
[~2018-03-28] MED LIST changes: +AFRI0.0511; +ALBU83IN NEB; +AZEL1SPR3; +AZIT-12 PO; +BENZ200C70 PO; +BREO1INH PO; +BREO1INH3 INH; -DICL100T PO; +DICL100T3 PO; +DIFL150T PO; +FERR1TAB8 PO; +FLUO10CA8 PO; +IBUP-1114 PO; +IRON27TA2 PO; +MAPA500T2 PO; +NEOM1SUS13 AS; +NITR100C39 PO; +NYST50SS; +PRENTAB9 PO; +REGL10TA6 PO; +SIME1CAP PO; +SKEL800T97 PO; +TIZA4CAP PO; -TIZA4CAP3 PO; +TRAZ-160 PO; +VENTAER INH; -ZANT300T PO; +ZANT300T9 PO; -ZOFR20TA PO; +ZOFR4TAB14 PO; +ZOFR4TAB16 PO; -ZOFR4TAB3 PO; +[UNRECOGNIZED DRUG - OTHER] INH
[2018-03-28 21:21] LABS: INFLUENZA A AMPLIFICATION NEGATIVE (NEGATIVE); INFLUENZA B AMPLIFICATION NEGATIVE (NEGATIVE)
== END ==
LOC: M LAB REF 12:19
PROVIDERS: ATTEND Physician Assistant
DX: J11.1 Influenza due to unidentified influenza virus with other respiratory manifestations (principal)

== ENCOUNTER 2018-05-01 20:44 | Emergency (ER) | payer MEDICAID, OTHER ==
[~2018-05-01] VITALS: Ht 162.6 cm; Wt 61.8 kg
[2018-05-01 22:15] LABS: BASO # 0.1 10^3/uL (0.0-0.2); BASO % 0.5 % (0.0-1.0); EOS % 0.2 % (0.0-3.0); HEMATOCRIT 39.9 % (36.0-47.0); HEMOGLOBIN 12.5 g/dl (12.0-15.5); LYMPH # 3.4 10^3/uL (1.5-6.5); LYMPH % 26.4 % (24.0-44.0); MEAN CORPUSCULAR HEMOGLOBIN 24.1 pg (27.0-33.0); MEAN CORPUSCULAR HGB CONC 31.3 g/dl (32.0-36.5); MEAN CORPUSCULAR VOLUME 76.9 fl (80.0-96.0); MONO # 0.8 10^3/uL (0.0-0.8); MONO % 5.9 % (0.0-5.0); NEUTROPHILS # 8.6 10^3/uL (1.8-7.7); NEUTROPHILS % 66.5 % (36.0-66.0); PLATELET COUNT, AUTOMATED 413 10^3/uL (150-450); RED BLOOD COUNT 5.19 10^6/uL (4.00-5.40)
[2018-05-01 22:28] LABS: HCG, SERUM QUALITATIVE NEGATIVE (NEGATIVE)
[2018-05-01 22:48] LABS: ALBUMIN 4.3 GM/DL (3.2-5.2); ALT/SGPT 15 U/L (12-78); BILIRUBIN,DIRECT 0.2 MG/DL (0.0-0.2); BILIRUBIN,TOTAL 1.2 MG/DL (0.2-1.0); BLOOD UREA NITROGEN 10 MG/DL (7-18); CALCIUM LEVEL 9.2 MG/DL (8.5-10.1); CARBON DIOXIDE LEVEL 26 MEQ/L (21-32); CHLORIDE LEVEL 105 MEQ/L (98-107); CREATININE FOR GFR 0.76 MG/DL (0.55-1.30); GLOMERULAR FILTRATION RATE > 60.0 (>60); GLUCOSE, FASTING 88 MG/DL (70-100); LIPASE 109 U/L (73-393); POTASSIUM SERUM 3.5 MEQ/L (3.5-5.1); SODIUM LEVEL 140 MEQ/L (136-145); TOTAL PROTEIN 8.1 GM/DL (6.4-8.2)
--- NOTE | 2018-05-02 00:22 | REPVR ---
EXAM: CT Abdomen and Pelvis Without Contrast EXAM DATE/TIME: 05/01/2018 10:41 PM CLINICAL HISTORY: 22 years old, female; Pain; Abdominal pain; Localized; Right lower quadrant (rlq); Additional info: Rlq pain TECHNIQUE: Axial computed tomography images of the abdomen and pelvis without contrast. All CT scans at this facility use at least one of these dose optimization techniques: automated exposure control; mA and/or kV adjustment per patient size (includes targeted exams where dose is matched to clinical indication); or iterative reconstruction. Coronal and sagittal reformatted images were created and reviewed. COMPARISON: CT ABD/PEL W/IV ORAL CONTRAS 06/08/2017 8:33 AM FINDINGS: Lower thorax: No acute findings. ABDOMEN: Liver: Normal. No mass. Gallbladder and bile ducts: Normal. No calcified stones. No ductal dilation. Pancreas: Normal. No ductal dilation. Spleen: Normal. No splenomegaly. Adrenals: Normal. No mass. Kidneys and ureters: Normal. No hydronephrosis. Stomach and bowel: Normal. No obstruction. No mucosal thickening. Appendix: No evidence of appendicitis. PELVIS: Bladder: Unremarkable as visualized. Reproductive: Unremarkable as visualized. ABDOMEN and PELVIS: Intraperitoneal space: Normal. No free air. No significant fluid collection. Bones/joints: No acute fracture. No dislocation. Sacralization of L5 vertebral body Soft tissues: Unremarkable. Vasculature: Normal. No abdominal aortic aneurysm. Lymph nodes: Normal. No enlarged lymph nodes. IMPRESSION: No acute findings. Electronically signed by: Yuliet Peña On 05/02/2018 00:21:30 AM
[2018-05-02 00:55] VITALS: BP 138/76
[2018-05-02] MEDS ORDERED: FERR32TA (10:10)
== END 2018-05-02 00:56 | disposition home or self-care (01) ==
LOC: M ED 20:44
DX: R10.9 Unspecified abdominal pain (principal); R11.2 Nausea with vomiting, unspecified; Z87.42 Personal history of other diseases of the female genital tract; F17.200 Nicotine dependence, unspecified, uncomplicated; Z88.0 Allergy status to penicillin; Z88.1 Allergy status to other antibiotic agents

== ENCOUNTER 2018-05-02 10:03 | Emergency (ER) | payer OTHER ==
[~2018-05-02] VITALS: Ht 162.6 cm; Wt 75.0 kg
[2018-05-02] MEDS ORDERED: FERR32TA (10:10)
[2018-05-02] MEDS ORDERED: ONDANSETRON 4 MG ORAL DISINTEGRATING TAB (Q0162 PER 1MG) PO ONE (10:45)
[2018-05-02 11:02] LABS: BASO # 0.1 10^3/uL (0.0-0.2); BASO % 0.6 % (0.0-1.0); EOS % 0.3 % (0.0-3.0); HEMATOCRIT 38.4 % (36.0-47.0); HEMOGLOBIN 12.1 g/dl (12.0-15.5); LYMPH # 2.1 10^3/uL (1.5-6.5); LYMPH % 18.5 % (24.0-44.0); MEAN CORPUSCULAR HEMOGLOBIN 23.6 pg (27.0-33.0); MEAN CORPUSCULAR HGB CONC 31.5 g/dl (32.0-36.5); MONO # 0.7 10^3/uL (0.0-0.8); NEUTROPHILS # 8.3 10^3/uL (1.8-7.7); NEUTROPHILS % 74.2 % (36.0-66.0); PLATELET COUNT, AUTOMATED 389 10^3/uL (150-450); RED BLOOD COUNT 5.12 10^6/uL (4.00-5.40); WHITE BLOOD COUNT 11.2 10^3/uL (4.0-10.0)
[2018-05-02 11:05] LABS: URINE PREG TEST NEGATIVE (NEGATIVE)
[2018-05-02 11:29] LABS: BLOOD UREA NITROGEN 11 MG/DL (7-18); CALCIUM LEVEL 9.2 MG/DL (8.5-10.1); CARBON DIOXIDE LEVEL 25 MEQ/L (21-32); CHLORIDE LEVEL 106 MEQ/L (98-107); CREATININE FOR GFR 0.73 MG/DL (0.55-1.30); GLOMERULAR FILTRATION RATE > 60.0 (>60); GLUCOSE, FASTING 91 MG/DL (70-100); POTASSIUM SERUM 3.9 MEQ/L (3.5-5.1); SODIUM LEVEL 141 MEQ/L (136-145)
--- NOTE | 2018-05-02 11:44 | REP ---
Pelvic ultrasound transabdominal and Doppler ultrasound assessment: The bladder is empty reducing sensitivity of the examination. The uterus is anteverted and anteflexed. The uterus measures 8.9 x 4.4 x 5.1 cm and is normal size. The endometrium is normal thickness measuring 6.7 mm. Right ovary measures 3.6 x 1.8 x 2.3 cm. Left ovary measures 3.6 x 2.2 x 2.1 cm. There are no dominant ovarian masses or cysts. There are normal sized follicles in each ovary. There is vascular flow in both ovaries. The Doppler resistive index of the parenchymal arteries of the right ovary 0.46 and left ovary 0.49. There is no free fluid in the pelvis. Impression: Essentially negative pelvic ultrasound. The uterus is anteverted and anteflexed. Electronically Signed by Jabier Werner MD 05/02/2018 11:36 A
[2018-05-02 12:13] VITALS: BP 103/59
== END 2018-05-02 12:35 | disposition home or self-care (01) ==
LOC: M ED 10:03
DX: K65.0 Generalized (acute) peritonitis (principal); R10.2 Pelvic and perineal pain
CPT/HCPCS: 76856; 80048; 81001; 84703; 85025; 99283; Q0162

== ENCOUNTER 2018-05-28 04:35 | Emergency (ER) | payer OTHER ==
[~2018-05-28] VITALS: Ht 162.6 cm; Wt 72.7 kg
[~2018-05-28 04:35] MED LIST changes: +FERR32TA
[2018-05-28] MEDS ORDERED: ACE65ERTAB PO (05:04)
[2018-05-28] MEDS ORDERED: IBUPROFEN 800 MG TAB PO ONE (08:30)
--- NOTE | 2018-05-28 09:17 | REP ---
CT of the cervical spine without IV contrast for trauma: The skull base, C1-C2 are unremarkable. Vertebral body heights, interspacing alignment are normal. The prevertebral soft tissues are normal. The facets are normally aligned. There are no posterior element fractures. Impression: There is no fracture or listhesis. Electronically Signed by Jabier Werner MD 05/28/2018 09:08 A
[2018-05-28] MEDS ORDERED: LIDO5DIS41 TOP (09:31)
[2018-05-28] MEDS ORDERED: IBUP1TAB7 PO (09:31)
[2018-05-28] MEDS ORDERED: ACET-683 PO (09:31)
[2018-05-28 09:38] VITALS: BP 118/58
== END 2018-05-28 09:45 | disposition home or self-care (01) ==
LOC: M ED 04:35
DX: M54.2 Cervicalgia (principal); M45.9 Ankylosing spondylitis of unspecified sites in spine; G89.29 Other chronic pain; W00.0XXA Fall on same level due to ice and snow, initial encounter; Y92.89 Other specified places as the place of occurrence of the external cause; Y99.0 Civilian activity done for income or pay; M51.36 Other intervertebral disc degeneration, lumbar region; J45.909 Unspecified asthma, uncomplicated; F17.200 Nicotine dependence, unspecified, uncomplicated; Z79.899 Other long term (current) drug therapy; Z79.3 Long term (current) use of hormonal contraceptives; Z88.1 Allergy status to other antibiotic agents; Z88.0 Allergy status to penicillin

== ENCOUNTER 2018-06-08 07:14 | Emergency (ER) | payer OTHER ==
[~2018-06-08] VITALS: Ht 162.6 cm; Wt 74.6 kg
[~2018-06-08 07:14] MED LIST changes: +ACE65ERTAB PO; +ACET-683 PO; +IBUP1TAB7 PO; +LIDO5DIS41 TOP
[2018-06-08] MEDS ORDERED: ARNU1INH3 (07:21)
[2018-06-08] MEDS ORDERED: ALBUTEROL (07:21)
[2018-06-08] MEDS ORDERED: SERT25TA88 (07:21)
[2018-06-08] MEDS ORDERED: ATOM40CA2 (07:21)
[2018-06-08] MEDS ORDERED: ALBUTEROL SULFATE 2.5 MG/0.5 ML INH NEB SOLN INH ONE (07:45)
[2018-06-08] MEDS ORDERED: LORazepam 1 MG TAB PO ONE (08:00)
[2018-06-08] MEDS ORDERED: LORazepam 0.5 MG TAB PO ONE (08:00)
--- NOTE | 2018-06-08 08:57 | REP ---
CHEST: Two views. There is no evidence of acute infiltrate. No pleural effusion is seen. The heart is normal in size. The mediastinal silhouette is unremarkable. The visualized osseous structures are intact. IMPRESSION: No acute pulmonary disease. Electronically Signed by Jabier Redmond MD 06/08/2018 03:54 P
[2018-06-08 09:27] VITALS: BP 125/62
--- NOTE | 2018-06-09 06:16 | ECGEPIP ---
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 Order Number: [id number] Reading MD: Talha Mckeon Measurements Intervals [place] Rate: 78 P: 61 [place]: 142 QRS: 92 QRSD: 101 T: 22 QT: 366 QTc: 419 Interpretive Statements SINUS RHYTHM RIGHT AXIS DEVIATION SIMILAR TO 12/19/17 Electronically Signed On 06-09-2018 6:15:58 EDT by Talha Mckeon
== END 2018-06-08 09:28 | disposition home or self-care (01) ==
LOC: M ED 07:14
DX: R06.02 Shortness of breath (principal); R07.89 Other chest pain; T50.905A Adverse effect of unspecified drugs, medicaments and biological substances, initial encounter; F90.9 Attention-deficit hyperactivity disorder, unspecified type; F32.9 Major depressive disorder, single episode, unspecified; F41.9 Anxiety disorder, unspecified; J45.909 Unspecified asthma, uncomplicated; Z88.0 Allergy status to penicillin; Z88.1 Allergy status to other antibiotic agents; Z79.899 Other long term (current) drug therapy; Z79.1 Long term (current) use of non-steroidal anti-inflammatories (NSAID); Z79.51 Long term (current) use of inhaled steroids; F17.200 Nicotine dependence, unspecified, uncomplicated

== ENCOUNTER 2018-09-06 14:46 | Outpatient (RCR) | payer OTHER ==
[~2018-09-06 14:46] MED LIST changes: +ALBUTEROL; +ARNU1INH3; +ATOM40CA2; -DICL100T3 PO; +DICL100T89 PO; -DULO30CA PO; +DULO30CA9 PO; +SERT25TA88; -TRAZ-160 PO; +TRAZ-252 PO
[2018-09-12] MEDS ORDERED: CYCL10TA PO (03:53)
[2018-09-12] MEDS ORDERED: PRED20TA PO (04:54)
== END 2018-09-17 ==
LOC: M PT 14:46
PROVIDERS: ATTEND Family Medicine
DX: M54.42 Lumbago with sciatica, left side (principal)

== ENCOUNTER 2018-09-12 03:47 | Emergency (ER) | payer OTHER ==
[~2018-09-12] VITALS: Ht 162.6 cm; Wt 86.0 kg
[2018-09-12] MEDS ORDERED: CYCL10TA PO (03:53)
[2018-09-12 04:54] VITALS: BP 131/69
[2018-09-12] MEDS ORDERED: PRED20TA PO (04:54)
[2018-09-12] MEDS ORDERED: predniSONE 20 MG TAB PO ONE (05:00)
== END 2018-09-12 05:04 | disposition home or self-care (01) ==
LOC: M ED 03:47
DX: J20.8 Acute bronchitis due to other specified organisms (principal); J45.909 Unspecified asthma, uncomplicated; Z79.899 Other long term (current) drug therapy; Z88.0 Allergy status to penicillin; Z88.1 Allergy status to other antibiotic agents; Z88.8 Allergy status to other drugs, medicaments and biological substances; F17.210 Nicotine dependence, cigarettes, uncomplicated

== ENCOUNTER 2018-09-25 07:45 | Outpatient (RCR) | payer OTHER ==
[~2018-09-25 07:45] MED LIST changes: -OMEP20CA3 PO; +OMEP20CA4 PO
[2018-10-03] MEDS ORDERED: DEPO150I12 IM (09:15)
== END 2018-10-18 ==
LOC: M PT 07:45
PROVIDERS: ATTEND Family Medicine
DX: Z51.89 Encounter for other specified aftercare (principal); M54.42 Lumbago with sciatica, left side

== ENCOUNTER 2018-10-03 09:04 | Emergency (ER) | payer OTHER ==
[~2018-10-03] VITALS: Ht 162.6 cm; Wt 85.5 kg
[2018-10-03] MEDS ORDERED: DEPO150I12 IM (09:15)
[2018-10-03 09:30] LABS: BASO # 0.1 10^3/uL (0.0-0.2); BASO % 0.8 % (0.0-1.0); EOS # 0.1 10^3/uL (0.0-0.50); EOS % 0.8 % (0.0-3.0); HEMATOCRIT 42.2 % (36.0-47.0); HEMOGLOBIN 13.6 g/dl (12.0-15.5); LYMPH # 2.4 10^3/uL (1.5-6.5); LYMPH % 30.7 % (24.0-44.0); MEAN CORPUSCULAR HEMOGLOBIN 27.3 pg (27.0-33.0); MEAN CORPUSCULAR HGB CONC 32.2 g/dl (32.0-36.5); MEAN CORPUSCULAR VOLUME 84.7 fl (80.0-96.0); MONO # 0.6 10^3/uL (0.0-0.8); MONO % 7.2 % (0.0-5.0); NEUTROPHILS # 4.7 10^3/uL (1.8-7.7); PLATELET COUNT, AUTOMATED 338 10^3/uL (150-450); RED BLOOD COUNT 4.98 10^6/uL (4.00-5.40); WHITE BLOOD COUNT 7.8 10^3/uL (4.0-10.0)
[2018-10-03] MEDS ORDERED: KETOROLAC 30 MG/ML VIAL (J1885) IV ONE (09:30)
[2018-10-03 09:54] LABS: ALBUMIN 3.7 GM/DL (3.2-5.2); ALT/SGPT 17 U/L (12-78); BILIRUBIN,DIRECT 0.1 MG/DL (0.0-0.2); BILIRUBIN,TOTAL 0.7 MG/DL (0.2-1.0); BLOOD UREA NITROGEN 13 MG/DL (7-18); CARBON DIOXIDE LEVEL 26 MEQ/L (21-32); CHLORIDE LEVEL 109 MEQ/L (98-107); CREATININE FOR GFR 0.89 MG/DL (0.55-1.30); GLOMERULAR FILTRATION RATE > 60.0 (>60); GLUCOSE, FASTING 86 MG/DL (70-100); LIPASE 128 U/L (73-393); POTASSIUM SERUM 4.4 MEQ/L (3.5-5.1); SODIUM LEVEL 140 MEQ/L (136-145); TOTAL PROTEIN 7.4 GM/DL (6.4-8.2)
[2018-10-03] MEDS ORDERED: ISOVUE-370 76% 100ML VIAL (Q9967) As Ordered ONE (10:01)
--- NOTE | 2018-10-03 12:18 | REP ---
CT of the abdomen and pelvis with IV contrast, without bowel Deras: Comparison is 05/01/2018. The visualized lung llanos are unremarkable. The hepatic parenchyma, gallbladder, pancreas, spleen, adrenals, kidneys, and abdominal aorta are unremarkable. There is no bowel distension or obstruction. Pelvis: The appendix cannot be identified, however, there is no pericecal phlegmon or abscess. There is no free fluid in the pelvis. The uterus, adnexa and bladder are unremarkable. The pelvic bowel loops are unremarkable. Impression: Essentially negative CT study of the abdomen and pelvis. The appendix cannot be identified, however, there is no pericecal phlegmon or abscess. Electronically Signed by Jabier Werner MD 10/03/2018 12:09 P
[2018-10-03 12:45] VITALS: BP 115/56
[2018-10-03 13:15] LABS: CHLAMYDIA DNA AMPLIFICATION NEGATIVE (NEGATIVE); GC DNA AMPLIFICATION NEGATIVE (NEGATIVE)
== END 2018-10-03 12:47 | disposition home or self-care (01) ==
LOC: EDBD 09:04 → M ED 09:04
DX: R10.9 Unspecified abdominal pain (principal); R11.0 Nausea; J45.909 Unspecified asthma, uncomplicated; G89.29 Other chronic pain; Z88.0 Allergy status to penicillin; Z88.1 Allergy status to other antibiotic agents; Z79.3 Long term (current) use of hormonal contraceptives
CPT/HCPCS: 36415; 74177; 80048; 80076; 81001; 83690; 84702; 85025; 87210; 87661; 96374; 99284; J1885; Q9967

== ENCOUNTER → 2018-10-13 | Outpatient (CLI) | payer OTHER ==
[~2018-10-13] MED LIST changes: +DEPO150I12 IM
--- NOTE | 2018-10-13 19:06 | REP ---
Overall ultrasound including transabdominal, endovaginal and Doppler ultrasound assessment: Studies performed for pelvic pain. The uterus is anteverted and normal size measuring 7.6 x 3.2 x 4.0 cm. The endometrium is normal thickness measuring 2.4 mm. However, there are uterine calcifications. Some of which appear to be in the junctional zone. Given the clinical history of pelvic pain, pelvic MRI might be considered to evaluate for adenomyosis. The right ovary is normal size measuring 3.7 x 2.1 x 2.4 cm. The left ovary is normal size measuring 3.1 x 2.1 x 2.5 cm. There are no dominant ovarian masses or cysts. There is vascular flow in both ovaries. The Doppler resistive index of the parenchymal arteries in the right ovary is 0.46 and left ovary 0.44. Impression: Essentially negative pelvic ultrasound except for uterine calcifications. Some of which appear to be in the junctional zone. Given the clinical complaint of pelvic pain, consider pelvic MRI to evaluate for adenomyosis. Electronically Signed by Jabier Werner MD 10/13/2018 06:58 P
== END ==
LOC: M RAD 17:22
PROVIDERS: ATTEND Family Medicine
DX: R10.2 Pelvic and perineal pain (principal)

== ENCOUNTER 2019-06-03 03:23 | Emergency (ER) | payer MEDICAID, OTHER ==
[~2019-06-03] VITALS: Ht 162.6 cm; Wt 97.8 kg
[~2019-06-03 03:23] MED LIST changes: +FLUO10CA15 PO; -FLUO10CA8 PO; +OMEP1CAP73 PO; -OMEP20CA4 PO; +RANI-397 PO; -RANI1TAB6 PO; -ROPI0.5T PO; +ROPI0.5T3 PO; -SERT-155; +SERT25TA21; -SERT25TA88; +SERT50TA29
[2019-06-03] MEDS ORDERED: ATOM25CA PO (03:32)
[2019-06-03] MEDS ORDERED: FLUO20CA22 PO (03:33)
[2019-06-03] MEDS ORDERED: BENZ200C70 (03:34)
[2019-06-03] MEDS ORDERED: PRED20TA PO (05:02)
[2019-06-03] MEDS: IPRATROPIUM 0.5MG/ALBUTEROL 2.5MG INH SOL UD 3ML (DUONEB)(J7620) NEB ONE ×2 (05:12→05:24)
[2019-06-03] MEDS ORDERED: predniSONE 20 MG TAB PO ONE (05:15)
[2019-06-03 05:36] VITALS: BP 120/80
== END 2019-06-03 05:37 | disposition home or self-care (01) ==
LOC: M ED 03:23
DX: J45.909 Unspecified asthma, uncomplicated (principal); F17.200 Nicotine dependence, unspecified, uncomplicated; Z79.899 Other long term (current) drug therapy; Z88.0 Allergy status to penicillin; Z88.8 Allergy status to other drugs, medicaments and biological substances

== ENCOUNTER 2019-07-05 04:41 | Emergency (ER) | payer MEDICAID, OTHER ==
[~2019-07-05] VITALS: Ht 162.6 cm; Wt 93.6 kg
[~2019-07-05 04:41] MED LIST changes: +ATOM25CA PO; -ATOM40CA PO; +ATOM40CA16 PO; +BENZ200C70; +CYCL-707 PO; -CYCL10TA PO; +FLUO20CA22 PO
[2019-07-05] MEDS ORDERED: NS 1,000 ML IV ONE (05:15)
[2019-07-05 05:27] LABS: BASO # 0.1 10^3/uL (0.0-0.2); BASO % 0.4 % (0.0-1.0); EOS % 0.2 % (0.0-3.0); HEMOGLOBIN 13.8 g/dl (12.0-15.5); LYMPH # 1.9 10^3/uL (1.5-5.0); MEAN CORPUSCULAR HEMOGLOBIN 25.4 pg (27.0-33.0); MEAN CORPUSCULAR HGB CONC 32.1 g/dl (32.0-36.5); MEAN CORPUSCULAR VOLUME 79.2 fl (80.0-96.0); MONO # 0.7 10^3/uL (0.0-0.8); MONO % 4.5 % (0.0-5.0); NEUTROPHILS # 11.8 10^3/uL (1.5-8.5); NEUTROPHILS % 81.3 % (36.0-66.0); PLATELET COUNT, AUTOMATED 379 10^3/uL (150-450); RED BLOOD COUNT 5.43 10^6/uL (4.00-5.40); WHITE BLOOD COUNT 14.5 10^3/uL (4.0-10.0)
[2019-07-05 05:47] LABS: ALBUMIN 3.5 GM/DL (3.2-5.2); BILIRUBIN,DIRECT 0.1 MG/DL (0.0-0.2); BILIRUBIN,TOTAL 0.6 MG/DL (0.2-1.0); TOTAL PROTEIN 7.1 GM/DL (6.4-8.2)
[2019-07-05] MEDS ORDERED: ISOVUE-370 76% 100ML VIAL (Q9967) As Ordered ONE (06:14)
[2019-07-05] MEDS ORDERED: ONDANSETRON 4MG/2ML VIAL (J2405 PER 1MG) IV ONE (06:15)
[2019-07-05] MEDS ORDERED: KETOROLAC 30 MG/ML 1ML VIAL (J1885 PER 15MG) IV ONE (06:15)
--- NOTE | 2019-07-05 07:03 | REPVR ---
PROCEDURE INFORMATION: Exam: CT Abdomen And Pelvis With Contrast Exam date and time: 07/05/2019 6:01 AM Age: 23 years old Clinical indication: Abdominal pain; Localized; Right lower quadrant (rlq); Additional info: Rlq abd pain TECHNIQUE: Imaging protocol: Computed tomography of the abdomen and pelvis with intravenous contrast. Radiation optimization: All CT scans at this facility use at least one of these dose optimization techniques: automated exposure control; mA and/or kV adjustment per patient size (includes targeted exams where dose is matched to clinical indication); or iterative reconstruction. Contrast material: ISO; Contrast volume: 100 ml; Contrast route: AC; COMPARISON: CT ABD/PEL W/IV CONTRAST ONLY 10/03/2018 10:21 AM FINDINGS: Liver: The liver attenuation is 91 Hounsfield units and the spleen is 120 Hounsfield units. Gallbladder and bile ducts: Normal. No calcified stones. No ductal dilation. Pancreas: Normal. No ductal dilation. Spleen: Normal. No splenomegaly. Adrenals: Normal. No mass. Kidneys and ureters: Normal. No hydronephrosis. Stomach and bowel: Unremarkable. No obstruction. No mucosal thickening. Appendix: A normal appendix is seen. Intraperitoneal space: Unremarkable. No free air. No significant fluid collection. Vasculature: Unremarkable. No abdominal aortic aneurysm. Lymph nodes: Unremarkable. No enlarged lymph nodes. Bladder: Unremarkable as visualized. Reproductive: Unremarkable as visualized. Bones/joints: Unremarkable. No acute fracture. Soft tissues: Unremarkable. IMPRESSION: Negative CT abdomen/pelvis with little change from 10/03/2018. A normal appendix is seen. Electronically signed by: Hever Peters On 07/05/2019 07:03:03 AM
[2019-07-05 08:59] VITALS: BP 125/58
== END 2019-07-05 09:11 | disposition home or self-care (01) ==
LOC: M ED 04:41
DX: R10.9 Unspecified abdominal pain (principal); R11.2 Nausea with vomiting, unspecified; F17.200 Nicotine dependence, unspecified, uncomplicated; Z79.3 Long term (current) use of hormonal contraceptives; Z79.899 Other long term (current) drug therapy; Z88.0 Allergy status to penicillin; Z88.1 Allergy status to other antibiotic agents
CPT/HCPCS: 74177; 80047; 80076; 81001; 83690; 84702; 85025; 93041; 96374; 96375; 99284; J1885; J2405; Q9967

== ENCOUNTER → 2019-07-06 | Outpatient (REF) | payer OTHER ==
[2019-07-06 14:40] LABS: APPEARANCE, URINE HAZY (CLEAR); BACTERIA, URINE AUTO 1+ (NEGATIVE); BILIRUBIN, URINE AUTO NEGATIVE (NEGATIVE); BLOOD, URINE BLOOD NEGATIVE (NEGATIVE); COLOR, URINE YELLOW (YELLOW); GLUCOSE, URINE (UA) AUTO NEGATIVE (NEGATIVE); KETONE, URINE AUTO NEGATIVE (NEGATIVE); LEUKOCYTE ESTERASE, URINE AUTO 1+ (NEGATIVE); MUCUS, URINE SMALL (NEGATIVE); NITRITE, URINE AUTO NEGATIVE (NEGATIVE); PROTEIN, URINE AUTO NEGATIVE (NEGATIVE); RBC, URINE AUTO 2 /HPF (0-3); SPECIFIC GRAVITY URINE AUTO 1.023 (1.002-1.035); SQUAMOUS EPITHELIAL CELL UR AU 6 /HPF (0-6); WBC, URINE AUTO 6 /HPF (0-3)
[2019-07-06 15:55] LABS: CHLAMYDIA DNA AMPLIFICATION NEGATIVE (NEGATIVE); GC DNA AMPLIFICATION NEGATIVE (NEGATIVE)
== END ==
LOC: M LAB REF 13:39
PROVIDERS: ATTEND Physician Assistant
DX: N39.0 Urinary tract infection, site not specified (principal)

== ENCOUNTER 2019-08-28 12:13 | Emergency (ER) | payer MEDICAID, OTHER ==
[~2019-08-28] VITALS: Ht 162.6 cm; Wt 100.8 kg
[2019-08-28] MEDS ORDERED: OMEP-218 (12:20)
[2019-08-28] MEDS ORDERED: ALBUTEROL (12:20)
[2019-08-28] MEDS ORDERED: [UNRECOGNIZED DRUG - CODE] (12:20)
[2019-08-28 13:31] LABS: HEMATOCRIT 42.1 % (36.0-47.0); HEMOGLOBIN 13.4 g/dl (12.0-15.5); MEAN CORPUSCULAR HEMOGLOBIN 26.1 pg (27.0-33.0); MEAN CORPUSCULAR HGB CONC 31.8 g/dl (32.0-36.5); MEAN CORPUSCULAR VOLUME 82.1 fl (80.0-96.0); PLATELET COUNT, AUTOMATED 381 10^3/uL (150-450); RED BLOOD COUNT 5.13 10^6/uL (4.00-5.40); WHITE BLOOD COUNT 16.5 10^3/uL (4.0-10.0)
[2019-08-28 13:55] LABS: AMPHETAMINES LEVEL URINE NEGATIVE (NEGATIVE); BARBITURATES URINE NEGATIVE (NEGATIVE); BENZODIAZEPINES URINE NEGATIVE (NEGATIVE); CANNABINOIDS URINE NEGATIVE (NEGATIVE); COCAINE METABOLITE URINE NEGATIVE (NEGATIVE); METHADONE URINE NEGATIVE (NEGATIVE); OPIATES URINE NEGATIVE (NEGATIVE); PHENCYCLIDINE URINE NEGATIVE (NEGATIVE)
[2019-08-28 14:11] LABS: HCG, SERUM QUALITATIVE NEGATIVE (NEGATIVE)
[2019-08-28 14:18] LABS: ACETAMINOPHEN LEVEL < 2.0 UG/ML (10.0-30.0); ALBUMIN 3.7 GM/DL (3.2-5.2); ALT/SGPT 31 U/L (12-78); BILIRUBIN,DIRECT 0.1 MG/DL (0.0-0.2); BILIRUBIN,TOTAL 0.3 MG/DL (0.2-1.0); BLOOD UREA NITROGEN 10 MG/DL (7-18); CARBON DIOXIDE LEVEL 26 MEQ/L (21-32); CHLORIDE LEVEL 110 MEQ/L (98-107); CK-MB VALUE MASS < 1.0 NG/ML (<3.6); CPK CREATINE PHOSPHOKINASE 195 U/L (26-192); ETHYL ALCOHOL (ETHANOL) < 0.003 % (0.000-0.010); GLOMERULAR FILTRATION RATE > 60.0 (>60); GLUCOSE, FASTING 85 MG/DL (70-100); MB/CK RELATIVE INDEX 0.51 (< OR =4); POTASSIUM SERUM 4.2 MEQ/L (3.5-5.1); SODIUM LEVEL 142 MEQ/L (136-145); TOTAL PROTEIN 7.2 GM/DL (6.4-8.2); TROPONIN I < 0.02 NG/ML (< 0.10)
--- NOTE | 2019-08-28 16:08 | REP ---
CHEST, SINGLE VIEW: There is no evidence of acute infiltrate. No pleural effusion is seen. The heart is normal in size. The mediastinal silhouette is unremarkable. The visualized osseous structures are intact. IMPRESSION: No acute pulmonary disease. Electronically Signed by Jabier Redmond MD 08/30/2019 12:50 A
[2019-08-28 16:25] VITALS: BP 131/70
--- NOTE | 2019-08-28 20:16 | ECGEPIP ---
[facility] - ED Test Date: 2019-08-28 Pat Name: ANA CRAWFORD Department: Room: - Gender: Female [employer]: ALLIE : 1995 Requested By: Talha Strange Order Number: [id number] Reading MD: Regina Rust Measurements Intervals [place] Rate: 106 P: 52 SD: 144 QRS: 98 QRSD: 93 T: 24 QT: 337 QTc: 447 Interpretive Statements SINUS TACHYCARDIA RIGHT VENTRICULAR CONDUCTION DELAY BORDERLINE RIGHT AXIS DEVIATION ABNORMAL RHYTHM ECG INCREASED RATE 06/08/18 Electronically Signed on 08-28-2019 20:16:07 EDT by Regina Rust
== END 2019-08-28 16:30 | disposition home or self-care (01) ==
LOC: M ED 12:13
DX: F41.1 Generalized anxiety disorder (principal); R94.31 Abnormal electrocardiogram [ECG] [EKG]; R00.0 Tachycardia, unspecified; F32.9 Major depressive disorder, single episode, unspecified; J45.909 Unspecified asthma, uncomplicated; K21.9 Gastro-esophageal reflux disease without esophagitis; F17.200 Nicotine dependence, unspecified, uncomplicated; Z79.3 Long term (current) use of hormonal contraceptives; Z79.899 Other long term (current) drug therapy; Z88.0 Allergy status to penicillin; Z88.8 Allergy status to other drugs, medicaments and biological substances
CPT/HCPCS: 36415; 71045; 80048; 80076; 80307; 81001; 82550; 82553; 84443; 84703; 85027; 87086; 93005; 99284; G0480

== ENCOUNTER → 2019-09-05 | Outpatient (CLI) | payer MEDICAID, OTHER ==
[~2019-09-05] MED LIST changes: +ALBU8.5H; -FLUO10CA15 PO; +FLUO10CA16 PO; +GABA-282 PO; +NAPR500T6 PO; +OMEP-218; +[UNRECOGNIZED DRUG - CODE]
[2019-09-05 16:30] LABS: BASO # 0.1 10^3/uL (0.0-0.2); BASO % 0.5 % (0.0-1.0); EOS # 0.1 10^3/uL (0.0-0.5); EOS % 0.9 % (0.0-3.0); HEMATOCRIT 41.3 % (36.0-47.0); HEMOGLOBIN 13.1 g/dl (12.0-15.5); LYMPH # 4.1 10^3/uL (1.5-5.0); LYMPH % 32.2 % (24.0-44.0); MEAN CORPUSCULAR HEMOGLOBIN 26.5 pg (27.0-33.0); MEAN CORPUSCULAR HGB CONC 31.7 g/dl (32.0-36.5); MEAN CORPUSCULAR VOLUME 83.4 fl (80.0-96.0); MONO # 0.7 10^3/uL (0.0-0.8); MONO % 5.7 % (0.0-5.0); NEUTROPHILS # 7.5 10^3/uL (1.5-8.5); NEUTROPHILS % 59.9 % (36.0-66.0); PLATELET COUNT, AUTOMATED 365 10^3/uL (150-450); RED BLOOD COUNT 4.95 10^6/uL (4.00-5.40); WHITE BLOOD COUNT 12.6 10^3/uL (4.0-10.0)
[2019-09-05 16:41] LABS: PERCENT SATURATION 5.9 % (13.2-45.0); THYROID STIMULATING HORMONE 1.26 uIU/ML (0.358-3.740)
== END ==
LOC: M WUC 11:44
PROVIDERS: ATTEND Family Medicine
DX: G25.81 Restless legs syndrome (principal)

== ENCOUNTER → 2019-09-11 | Outpatient (CLI) | payer MEDICAID, OTHER ==
[~2019-09-11] MED LIST changes: -ALBU8.5H; +FLUO10CA15 PO; -FLUO10CA16 PO; -GABA-282 PO; -NAPR500T6 PO
[2019-09-11 15:12] LABS: BASO # 0.1 10^3/uL (0.0-0.2); BASO % 0.6 % (0.0-1.0); EOS % 0.3 % (0.0-3.0); HEMATOCRIT 41.8 % (36.0-47.0); LYMPH # 2.9 10^3/uL (1.5-5.0); LYMPH % 20.1 % (24.0-44.0); MEAN CORPUSCULAR HEMOGLOBIN 26.1 pg (27.0-33.0); MEAN CORPUSCULAR HGB CONC 31.1 g/dl (32.0-36.5); MEAN CORPUSCULAR VOLUME 83.8 fl (80.0-96.0); MONO % 6.9 % (0.0-5.0); NEUTROPHILS # 10.4 10^3/uL (1.5-8.5); NEUTROPHILS % 71.4 % (36.0-66.0); PLATELET COUNT, AUTOMATED 402 10^3/uL (150-450); RED BLOOD COUNT 4.99 10^6/uL (4.00-5.40); WHITE BLOOD COUNT 14.5 10^3/uL (4.0-10.0)
[2019-09-11 15:34] LABS: C REACTIVE PROTEIN QUANTITATIV 1.58 MG/DL (0.00-0.30)
[2019-09-11 15:41] LABS: ERYTHROCYTE SEDIMENTATION RATE 26 mm/hr (0-20)
[2019-09-11 15:43] LABS: TOTAL 25(OH) VITAMIN D 28.7 NG/ML (30.0-100.0)
[2019-09-14 16:12] LABS: HOMOCYST(E)INE SERUM 7.1 umol/L (0.0-14.5)
== END ==
LOC: M WUC 11:39
PROVIDERS: ATTEND Family Medicine
DX: G25.81 Restless legs syndrome (principal); D72.829 Elevated white blood cell count, unspecified

== ENCOUNTER 2019-09-12 03:46 | Emergency (ER) | payer MEDICAID, OTHER ==
[~2019-09-12] VITALS: Ht 162.6 cm; Wt 100.0 kg
--- NOTE | 2019-09-12 05:33 | REPVR ---
PROCEDURE INFORMATION: Exam: US Duplex Right Lower Extremity Veins, Limited Exam date and time: 09/12/2019 5:17 AM Age: 24 years old Clinical indication: Pain; Leg, lower; Right; Additional info: R calf pain/swell TECHNIQUE: Imaging protocol: Real-time Duplex ultrasound of the Right Lower Extremity with 2-D trevino scale, color Doppler flow and spectral waveform analysis with image documentation. Limited exam was focused on the right lower extremity veins. COMPARISON: US Duplex, Ext,LOWER veins,unilat 09/04/2015 1:34 PM FINDINGS: Right deep veins: Unremarkable. The common femoral, femoral, proximal profunda femoral and popliteal veins are patent without thrombus. Normal Doppler waveforms. Normal compressibility and/or augmentation response. Right superficial veins: Unremarkable. Saphenofemoral junction is patent without thrombus. Soft tissues: Unremarkable. IMPRESSION: No evidence of deep vein thrombosis. Electronically signed by: Gregory Mcguire On 09/12/2019 05:33:20 AM
[2019-09-12] MEDS ORDERED: KETOROLAC 60MG 2ML VIAL IM ONE (05:45)
[2019-09-12 05:52] VITALS: BP 113/57
== END 2019-09-12 06:15 | disposition home or self-care (01) ==
LOC: M ED 03:46
DX: S86.211A Strain of muscle(s) and tendon(s) of anterior muscle group at lower leg level, right leg, initial encounter (principal); Z88.0 Allergy status to penicillin; Z88.8 Allergy status to other drugs, medicaments and biological substances; Z88.1 Allergy status to other antibiotic agents; F17.200 Nicotine dependence, unspecified, uncomplicated; K21.9 Gastro-esophageal reflux disease without esophagitis; J45.909 Unspecified asthma, uncomplicated; M54.9 Dorsalgia, unspecified; F41.9 Anxiety disorder, unspecified; F32.9 Major depressive disorder, single episode, unspecified; Z79.899 Other long term (current) drug therapy; X58.XXXA Exposure to other specified factors, initial encounter; Y92.9 Unspecified place or not applicable; Y93.9 Activity, unspecified; Y99.8 Other external cause status
CPT/HCPCS: 93971; 99283; J1885

== ENCOUNTER → 2019-09-17 | Outpatient (CLI) | payer OTHER ==
[~2019-09-17] MED LIST changes: +E-Z-GAS II EFFERVESCENT PACKET (SODIUM BICARB./CITRIC ACID/SIMETHICONE) As Ordered ONE; +E-Z-HD 98% w/w 340GM SUSP BTL As Ordered ONE; +E-Z-PAQUE 96% w/w SUSP 176GM BTL As Ordered ONE
--- NOTE | 2019-09-17 14:58 | REP ---
Examination Requested: Esophagram Barium Swallow Reason For Exam/Comment: Globus sensation Esophagram: The procedure was performed OMKAR Stewart, under the direct supervision of Dr. Levi. The images were reviewed with Dr. Levi. A single PA chest x-ray is submitted as a audio/visual manager film. The superior mediastinal structures are midline. The heart size is within normal limits. The lungs are clear. Liquid barium and gas producing granules were given in the erect position as well as liquid barium in the prone oblique position, in order to perform a double contrast esophagram examination. Oral and pharyngeal stages of the examination were unremarkable. Esophageal transport is efficient and there is no esophagitis, stricture, or mucosal ring noted. There is no hiatal hernia noted. Gastroesophageal reflux was not visualized throughout the course of the exam. Impression: 1. Unremarkable esophagram. 0.2 minutes of fluoroscopy time was utilized for this procedure. Some fluoroscopic images are performed with last image hold technology. These images require no additional radiation. Reviewed by OMKAR Echols 09/17/2019 02:27 P Electronically Signed by Paul Levi MD 09/17/2019 02:49 P
== END ==
LOC: M RAD 07:54
PROVIDERS: ATTEND Family Medicine
DX: R09.89 Other specified symptoms and signs involving the circulatory and respiratory systems (principal)

== ENCOUNTER 2019-09-19 22:31 | Emergency (ER) | payer OTHER ==
[~2019-09-19] VITALS: Ht 162.6 cm; Wt 101.4 kg
[~2019-09-19 22:31] MED LIST changes: -E-Z-GAS II EFFERVESCENT PACKET (SODIUM BICARB./CITRIC ACID/SIMETHICONE) As Ordered ONE; -E-Z-HD 98% w/w 340GM SUSP BTL As Ordered ONE; -E-Z-PAQUE 96% w/w SUSP 176GM BTL As Ordered ONE
[2019-09-19 23:56] VITALS: BP 118/62
== END 2019-09-19 23:55 | disposition home or self-care (01) ==
LOC: M ED 22:31
DX: S80.12XA Contusion of left lower leg, initial encounter (principal); W18.30XA Fall on same level, unspecified, initial encounter; Y92.9 Unspecified place or not applicable; Z88.0 Allergy status to penicillin; Z88.8 Allergy status to other drugs, medicaments and biological substances

== ENCOUNTER 2019-09-21 08:27 | Emergency (ER) | payer OTHER ==
[~2019-09-21] VITALS: Ht 162.6 cm; Wt 103.6 kg
[2019-09-21 08:35] VITALS: BP 135/66
== END 2019-09-21 09:22 | disposition home or self-care (01) ==
LOC: M ED 08:27 → EDBD 08:27 → M ED 09:22
DX: S70.12XA Contusion of left thigh, initial encounter (principal); X58.XXXA Exposure to other specified factors, initial encounter; Y92.9 Unspecified place or not applicable; Y93.9 Activity, unspecified; Y99.9 Unspecified external cause status; J45.909 Unspecified asthma, uncomplicated; K21.9 Gastro-esophageal reflux disease without esophagitis; F32.9 Major depressive disorder, single episode, unspecified; Z72.0 Tobacco use; Z79.899 Other long term (current) drug therapy; Z88.0 Allergy status to penicillin; Z88.1 Allergy status to other antibiotic agents

== ENCOUNTER 2019-10-15 14:26 | Emergency (ER) | payer OTHER ==
[~2019-10-15 14:26] MED LIST changes: -FLUO10CA15 PO; +FLUO10CA16 PO
[2020-01-11] MEDS ORDERED: ALBU8.5H (14:17)
[2020-01-11] MEDS ORDERED: NAPR500T6 PO (14:17)
[2020-01-11] MEDS ORDERED: GABA-843 PO (14:17)
== END 2019-10-15 15:45 | disposition home or self-care (01) ==
LOC: M ED 14:26
DX: N39.0 Urinary tract infection, site not specified (principal); I88.0 Nonspecific mesenteric lymphadenitis; K21.9 Gastro-esophageal reflux disease without esophagitis; Z79.899 Other long term (current) drug therapy; Z79.2 Long term (current) use of antibiotics; Z88.0 Allergy status to penicillin; Z88.1 Allergy status to other antibiotic agents

== ENCOUNTER → 2020-01-13 | Outpatient (CLI) | payer OTHER, MEDICAID ==
[~2020-01-13] MED LIST changes: +ALBU8.5H; +GABA-843 PO; +NAPR500T6 PO
== END ==
LOC: M LABSMTC 10:26
PROVIDERS: ATTEND Anesthesiology
DX: Z01.812 Encounter for preprocedural laboratory examination (principal); Z20.828 Contact with and (suspected) exposure to other viral communicable diseases
CPT/HCPCS: C9803; U0003

== ENCOUNTER 2020-01-18 13:23 | Day surgery (SDC) | payer OTHER ==
[~2020-01-18] VITALS: Ht 162.6 cm; Wt 104.3 kg
[~2020-01-18 13:23] MED LIST changes: +LIDOCAINE 2% MDV 20ML VIAL As Ordered ONE; +NS 1,000 ML IV ONE; +fentaNYL 100 MCG/2 ML INJECTION (J3010) As Ordered ONE; +propofoL 200 MG/20 ML VIAL As Ordered ONE
--- NOTE | 2020-01-18 14:43 | ROOR ---
Patient Name: Leila Sanchez Procedure Date: 01/18/2020 2:18 PM Date of : 1995 Age: 24 Room: [facility] Gender: Female Note Status: Finalized Procedure: Upper GI endoscopy Indications: Globus sensation Providers: Naif AGUIRRE MD Referring MD: Dawson Renteria DO Requesting Provider: Medicines: Monitored Anesthesia Care Complications: No immediate complications. Procedure: Pre-Anesthesia Assessment: - The heart rate, respiratory rate, oxygen saturations, blood pressure, adequacy of pulmonary ventilation, and response to care were monitored throughout the procedure. The Endoscope was introduced through the mouth, and advanced to the second part of duodenum. The upper GI endoscopy was accomplished without difficulty. The patient tolerated the procedure well. Findings: Ectopic gastric mucosa was present in the upper esophagus/prominent "Inlet patch". No other visible abnormalities were present. Biopsies were taken with a cold forceps for histology. The esophagus was otherwise normal. The stomach was normal. The examined duodenum was normal. Impression: - Normal esophagus with inlet patch. Biopsied. - Normal stomach. - Normal examined duodenum. Recommendation: - Observe patient's clinical course. - Continue present medications. Naif Aguirre MD Naif AGUIRRE MD 01/18/2020 2:42:16 PM Electronically signed by Naif AGUIRRE MD Number of Addenda: 0 Note Initiated On: 01/18/2020 2:18 PM Estimated Blood Loss: Estimated blood loss: none.
[2020-01-18 15:05] VITALS: BP 134/74
== END 2020-01-18 15:15 | disposition home or self-care (01) ==
LOC: M OPP 13:23
PROVIDERS: ATTEND Internal Medicine Gastroenterology
DX: K22.8 Other specified diseases of esophagus (principal); F45.8 Other somatoform disorders; F17.210 Nicotine dependence, cigarettes, uncomplicated; Z79.899 Other long term (current) drug therapy; Z88.0 Allergy status to penicillin; Z88.1 Allergy status to other antibiotic agents
CPT/HCPCS: 43239; 88305; J3010

== ENCOUNTER 2020-07-02 00:16 | Emergency (ER) | payer MEDICAID, OTHER ==
[~2020-07-02] VITALS: Ht 162.6 cm; Wt 100.0 kg
[~2020-07-02 00:16] MED LIST changes: +GABA-282 PO; -GABA-843 PO; -LIDOCAINE 2% MDV 20ML VIAL As Ordered ONE; -NS 1,000 ML IV ONE; -fentaNYL 100 MCG/2 ML INJECTION (J3010) As Ordered ONE; -propofoL 200 MG/20 ML VIAL As Ordered ONE
[2020-07-02] MEDS ORDERED: HYLANDS LEG CRAMP PO (00:25)
[2020-07-02 01:59] LABS: BASO # 0.1 10^3/uL (0.0-0.2); BASO % 0.6 % (0.0-1.0); EOS # 0.1 10^3/uL (0.0-0.5); EOS % 0.4 % (0.0-3.0); HEMATOCRIT 41.3 % (36.0-47.0); HEMOGLOBIN 13.3 g/dl (12.0-15.5); LYMPH # 3.6 10^3/uL (1.5-5.0); LYMPH % 22.3 % (24.0-44.0); MEAN CORPUSCULAR HGB CONC 32.2 g/dl (32.0-36.5); MEAN CORPUSCULAR VOLUME 83.8 fl (80.0-96.0); MONO # 1.1 10^3/uL (0.0-0.8); MONO % 6.6 % (2.0-8.0); NEUTROPHILS # 11.3 10^3/uL (1.5-8.5); NEUTROPHILS % 69.7 % (36.0-66.0); PLATELET COUNT, AUTOMATED 404 10^3/uL (150-450); RED BLOOD COUNT 4.93 10^6/uL (4.00-5.40); WHITE BLOOD COUNT 16.3 10^3/uL (4.0-10.0)
[2020-07-02] MEDS ORDERED: KETOROLAC 60MG 2ML VIAL IM ONE (02:10)
[2020-07-02 02:12] LABS: HCG, SERUM QUALITATIVE NEGATIVE (NEGATIVE)
[2020-07-02 02:59] LABS: BLOOD UREA NITROGEN 12 MG/DL (7-18); GLOMERULAR FILTRATION RATE > 60.0 (>60); GLUCOSE, FASTING 89 MG/DL (70-100)
[2020-07-02 03:00] LABS: ALBUMIN 3.6 GM/DL (3.2-5.2); ALT/SGPT 20 U/L (12-78); BILIRUBIN,DIRECT < 0.1 MG/DL (0.0-0.2); BILIRUBIN,TOTAL 0.4 MG/DL (0.2-1.0); CARBON DIOXIDE LEVEL 26 MEQ/L (21-32); CHLORIDE LEVEL 108 MEQ/L (98-107); POTASSIUM SERUM 3.5 MEQ/L (3.5-5.1); SODIUM LEVEL 143 MEQ/L (136-145); TOTAL PROTEIN 6.7 GM/DL (6.4-8.2)
[2020-07-02 03:17] LABS: AMPHETAMINES LEVEL URINE NEGATIVE (NEGATIVE); BARBITURATES URINE NEGATIVE (NEGATIVE); BENZODIAZEPINES URINE NEGATIVE (NEGATIVE); CANNABINOIDS URINE NEGATIVE (NEGATIVE); COCAINE METABOLITE URINE NEGATIVE (NEGATIVE); METHADONE URINE NEGATIVE (NEGATIVE); OPIATES URINE NEGATIVE (NEGATIVE); PHENCYCLIDINE URINE NEGATIVE (NEGATIVE)
[2020-07-02] MEDS ORDERED: ISOVUE-370 76% 100ML VIAL As Ordered ONE (04:09)
--- NOTE | 2020-07-02 05:18 | REPVR ---
PROCEDURE INFORMATION: Exam: CT Abdomen And Pelvis With Contrast Exam date and time: 07/02/2020 3:31 AM Age: 24 years old Clinical indication: Abdominal pain; Localized; Left lower quadrant (llq); Additional info: Llq pain, wbc 16,000 TECHNIQUE: Imaging protocol: Computed tomography of the abdomen and pelvis with contrast. Radiation optimization: All CT scans at this facility use at least one of these dose optimization techniques: automated exposure control; mA and/or kV adjustment per patient size (includes targeted exams where dose is matched to clinical indication); or iterative reconstruction. Contrast material: ISO; Contrast volume: 100 ml; Contrast route: INTRAVENOUS (IV); COMPARISON: CT ABD/PEL W/IV CONTRAST ONLY 10/12/2019 11:19 AM FINDINGS: Liver: Hepatomegaly and steatosis. Gallbladder and bile ducts: Normal. No calcified stones. No ductal dilation. Pancreas: Normal. No ductal dilation. Spleen: Normal. No splenomegaly. Adrenal glands: Normal. No mass. Kidneys and ureters: Normal. No hydronephrosis. Stomach and bowel: Mild nonspecific bowel wall thickening involving loops of small bowel likely reflecting under distension. Enteritis cannot be completely excluded. Appendix: No evidence of appendicitis. Intraperitoneal space: Unremarkable. No free air. No significant fluid collection. Vasculature: Unremarkable. No abdominal aortic aneurysm. Lymph nodes: Scattered subcentimeter nonspecific mesenteric lymph nodes. Urinary bladder: Contracted urinary bladder. Reproductive: Minimal asymmetric enlargement the left adnexa. Bones/joints: Unremarkable. No acute fracture. Soft tissues: Containing umbilical hernia. IMPRESSION: Mild nonspecific bowel wall thickening involving loops of small bowel likely reflecting under distension. Enteritis cannot be completely excluded. No bowel obstruction. Normal appendix. Mild hepatomegaly and steatosis. Electronically signed by: Gregory Mcguire On 07/02/2020 05:18:52 AM
[2020-07-02] MEDS ORDERED: DICYCLOMINE INJ 20MG/2ML (J0500) IM ONE (05:35)
[2020-07-02] MEDS ORDERED: DICY1CAP8 PO ×2 (05:36→06:12)
[2020-07-02 06:00] VITALS: BP 117/58
[2020-07-03] MEDS ORDERED: DEPO150I12 IM (11:19)
[2020-07-03] MEDS ORDERED: DIFL150T PO (15:26)
== END 2020-07-02 06:17 | disposition home or self-care (01) ==
LOC: M ED 00:16
DX: R10.9 Unspecified abdominal pain (principal); K21.9 Gastro-esophageal reflux disease without esophagitis; F32.9 Major depressive disorder, single episode, unspecified; F17.200 Nicotine dependence, unspecified, uncomplicated; Z79.899 Other long term (current) drug therapy; Z88.0 Allergy status to penicillin; Z88.1 Allergy status to other antibiotic agents
CPT/HCPCS: 74177; 80048; 80076; 80307; 81001; 84703; 85025; 96372; 99284; J0500; J1885; Q9967

== ENCOUNTER 2020-07-03 11:09 | Emergency (ER) | payer OTHER ==
[~2020-07-03] VITALS: Ht 157.5 cm; Wt 72.7 kg
[~2020-07-03 11:09] MED LIST changes: +DICY1CAP8 PO; +HYLANDS LEG CRAMP PO
[2020-07-03] MEDS ORDERED: DEPO150I12 IM (11:19)
[2020-07-03 11:48] LABS: BASO # 0.1 10^3/uL (0.0-0.2); BASO % 0.8 % (0.0-1.0); EOS # 0.1 10^3/uL (0.0-0.5); EOS % 0.9 % (0.0-3.0); HEMATOCRIT 43.6 % (36.0-47.0); HEMOGLOBIN 13.8 g/dl (12.0-15.5); LYMPH # 2.3 10^3/uL (1.5-5.0); LYMPH % 20.9 % (24.0-44.0); MEAN CORPUSCULAR HEMOGLOBIN 26.9 pg (27.0-33.0); MEAN CORPUSCULAR HGB CONC 31.7 g/dl (32.0-36.5); MONO # 0.7 10^3/uL (0.0-0.8); MONO % 6.3 % (2.0-8.0); NEUTROPHILS # 7.7 10^3/uL (1.5-8.5); NEUTROPHILS % 70.5 % (36.0-66.0); PLATELET COUNT, AUTOMATED 369 10^3/uL (150-450); RED BLOOD COUNT 5.13 10^6/uL (4.00-5.40); WHITE BLOOD COUNT 10.9 10^3/uL (4.0-10.0)
[2020-07-03 12:13] LABS: BLOOD UREA NITROGEN 14 MG/DL (7-18); CARBON DIOXIDE LEVEL 24 MEQ/L (21-32); CHLORIDE LEVEL 114 MEQ/L (98-107); CREATININE FOR GFR 0.69 MG/DL (0.55-1.30); GLOMERULAR FILTRATION RATE > 60.0 (>60); GLUCOSE, FASTING 98 MG/DL (70-100); POTASSIUM SERUM 3.8 MEQ/L (3.5-5.1); SODIUM LEVEL 143 MEQ/L (136-145)
[2020-07-03 12:14] LABS: CALCIUM LEVEL 8.3 MG/DL (8.5-10.1)
--- NOTE | 2020-07-03 12:53 | REP ---
INDICATION: left lower abdominal pain, history of ovarian cyst. COMPARISON: 10/13/2018 TECHNIQUE: Transvesical and transvaginal imaging FINDINGS: The uterus measures 6.4 x 3.2 x 4.3 cm. The parenchymal echo pattern is within normal limits. The endometrial echo complex measures 4 mm in thickness. The right ovary measures 3.4 x 1.5 x 2 cm and is within normal limits with an RI of 0.63. There are left ovary measures 3.7 x 2.3 x 2.7 cm and is within normal limits with an RI of 0.49. Urinary bladder measures 3.4 x 4.1 x 4.6 cm. There is no free fluid. IMPRESSION: Ultrasound findings are within normal limits. <Electronically signed by Joseluis Mclean > 07/03/20 [id number]
[2020-07-03] MEDS ORDERED: ACETAMINOPHEN 325 MG TAB PO ONE (13:35)
[2020-07-03] MEDS ORDERED: DICYCLOMINE 10 MG CAP PO ONE (13:35)
[2020-07-03] MEDS ORDERED: DIFL150T PO (15:26)
[2020-07-03 15:54] VITALS: BP 137/72
[2020-07-03 16:15] LABS: CHLAMYDIA DNA AMPLIFICATION NEGATIVE (NEGATIVE); GC DNA AMPLIFICATION NEGATIVE (NEGATIVE)
== END 2020-07-03 15:56 | disposition home or self-care (01) ==
LOC: M ED 11:09
DX: B37.9 Candidiasis, unspecified (principal); R11.0 Nausea; R10.32 Left lower quadrant pain; J45.909 Unspecified asthma, uncomplicated; K21.9 Gastro-esophageal reflux disease without esophagitis; G89.29 Other chronic pain; M54.9 Dorsalgia, unspecified; Z87.448 Personal history of other diseases of urinary system; F17.200 Nicotine dependence, unspecified, uncomplicated; Z79.899 Other long term (current) drug therapy; Z88.0 Allergy status to penicillin; Z88.1 Allergy status to other antibiotic agents

== ENCOUNTER → 2020-07-08 | Outpatient (CLI) | payer OTHER ==
[2020-07-08 18:00] LABS: BASO # 0.1 10^3/uL (0.0-0.2); BASO % 0.5 % (0.0-1.0); EOS % 0.2 % (0.0-3.0); HEMOGLOBIN 14.5 g/dl (12.0-15.5); LYMPH # 2.3 10^3/uL (1.5-5.0); LYMPH % 17.9 % (24.0-44.0); MEAN CORPUSCULAR HEMOGLOBIN 27.2 pg (27.0-33.0); MEAN CORPUSCULAR HGB CONC 32.2 g/dl (32.0-36.5); MEAN CORPUSCULAR VOLUME 84.4 fl (80.0-96.0); MONO # 0.6 10^3/uL (0.0-0.8); MONO % 4.6 % (2.0-8.0); NEUTROPHILS # 9.7 10^3/uL (1.5-8.5); NEUTROPHILS % 76.3 % (36.0-66.0); PLATELET COUNT, AUTOMATED 448 10^3/uL (150-450); RED BLOOD COUNT 5.33 10^6/uL (4.00-5.40); WHITE BLOOD COUNT 12.8 10^3/uL (4.0-10.0)
[2020-07-08 18:13] LABS: PROTHROMBIN TIME 13.4 SECONDS (12.5-14.3)
[2020-07-08 18:38] LABS: BLOOD UREA NITROGEN 11 MG/DL (7-18); CALCIUM LEVEL 9.3 MG/DL (8.5-10.1); CARBON DIOXIDE LEVEL 27 MEQ/L (21-32); CHLORIDE LEVEL 104 MEQ/L (98-107); CREATININE FOR GFR 0.83 MG/DL (0.55-1.30); FERRITIN 12 NG/ML (8-252); GLOMERULAR FILTRATION RATE > 60.0 (>60); GLUCOSE, FASTING 104 MG/DL (70-100); IRON (FE) 27 UG/DL (50-170); PERCENT SATURATION 6.4 % (13.2-45.0); POTASSIUM SERUM 3.6 MEQ/L (3.5-5.1); SODIUM LEVEL 140 MEQ/L (136-145); TOTAL IRON BINDING CAPACITY 422 UG/DL (250-450)
[2020-07-08 21:48] LABS: HEMOGLOBIN A1c 5.3 %
== END ==
LOC: M LAB 16:21
PROVIDERS: ATTEND Family Medicine
DX: R23.8 Other skin changes (principal); R11.0 Nausea; Z13.1 Encounter for screening for diabetes mellitus

== ENCOUNTER → 2020-08-13 | Outpatient (REF) | payer OTHER | LOC: M LAB REF 18:01 | PROVIDERS: ATTEND Internal Medicine Gastroenterology | DX: K58.0 Irritable bowel syndrome with diarrhea (principal) ==

== ENCOUNTER → 2020-09-26 | Outpatient (CLI) | payer OTHER ==
--- NOTE | 2020-09-26 08:39 | REP ---
INDICATION: OTH DZ OF GB RUQ ABD PAIN NAUSEA- NM AFTER COMPARISON: 01/09/2018 TECHNIQUE: Real time trevino scale ultrasound examination using curved array transducer. FINDINGS: Liver is normal in contour, size, and echogenicity without focal hepatic lesions identified. Pancreas is incompletely evaluated due to interposed bowel gas. The gallbladder is normal and without gallstones, wall thickening, or pericholecystic fluid. No biliary ductal dilatation is appreciated and the common bile duct measures 3.1 mm diameter. Right kidney is normal in reniform shape without hydronephrosis and measures 11.3 x 5.3 x 4.5 cm. No ascites in the visualized right upper quadrant. IMPRESSION: Normal limited right upper quadrant ultrasound <Electronically signed by Andrea Rowe > 09/26/20 [id number]
--- NOTE | 2020-09-26 10:53 | REP ---
INDICATION: OTH DZ OF GB RUQ ABD PAIN NAUSEA- US FIRST. COMPARISON: Comparison is made with a hepatic sonography from this date and prior CT study from July 02, 2020.. TECHNIQUE/RADIOTRACER AND DOSE: 6.6 mCi of Technetium-99m mebrofenin was injected and sequential anterior images are acquired. 65 minutes after the mebrofenin injection, the patient consumed 8 ounces Ensure and an additional 60 minutes of imaging was acquired. Regions of interest are plotted around the gallbladder. FINDINGS: The initial hepatocellular parenchymal uptake phase is normal and homogeneous. Intra- and extra-hepatic bile ducts are labeled by the 10-minute image. The gallbladder is first labeled on the 15-minute image. There is normal washout from the liver parenchyma into the gallbladder and small intestine on subsequent images. The gallbladder ejection fraction is 34%. Values greater than 35% are considered normal with this technique. IMPRESSION: Normal hepatobiliary scan and borderline gallbladder ejection fraction. <Electronically signed by Robin Levi > 09/26/20 [id number]
== END ==
LOC: M RAD 07:42
PROVIDERS: ATTEND Internal Medicine Gastroenterology
DX: K82.8 Other specified diseases of gallbladder (principal); R11.2 Nausea with vomiting, unspecified
CPT/HCPCS: 76705; 78227; A9537

== ENCOUNTER → 2020-10-16 | Outpatient (CLI) | payer OTHER ==
[~2020-10-16] MED LIST changes: +ALTA1TAB3 PO
== END ==
LOC: M LABSMTC 09:33
PROVIDERS: ATTEND Anesthesiology
DX: Z01.818 Encounter for other preprocedural examination (principal); Z20.822 Contact with and (suspected) exposure to COVID-19

== ENCOUNTER 2020-10-21 07:20 | Day surgery (SDC) | payer OTHER ==
[~2020-10-21] VITALS: Ht 162.6 cm; Wt 101.2 kg
[~2020-10-21 07:20] MED LIST changes: +NS 1,000 ML IV ONE
[2020-10-21] MEDS ORDERED: LIDOCAINE 2% 100MG/5ML SDV (FOR ANES.) As Ordered ONE (08:01)
[2020-10-21] MEDS ORDERED: propofoL 200 MG/20 ML VIAL As Ordered ONE ×2 (08:01→08:16)
--- NOTE | 2020-10-21 08:39 | ROOR ---
Patient Name: Leila Sanchez Procedure Date: 10/21/2020 8:11 AM Date of : 1995 Age: 25 Room: [id number] Gender: Female Note Status: Finalized Procedure: Colonoscopy Indications: Follow-up of irritable bowel syndrome, Irritable bowel syndrome with diarrhea Providers: Naif Aguirre MD Referring MD: [facility], Admin., Dawson Sweeney Md Requesting Provider: Medicines: Monitored Anesthesia Care Complications: No immediate complications. Procedure: Pre-Anesthesia Assessment: - The heart rate, respiratory rate, oxygen saturations, blood pressure, adequacy of pulmonary ventilation, and response to care were monitored throughout the procedure. The Colonoscope was introduced through the anus and advanced to 15 cm into the ileum. The colonoscopy was performed without difficulty. The patient tolerated the procedure well. The quality of the bowel preparation was good. Findings: The perianal and digital rectal examinations were normal. Small Internal Hemorrhoids. The entire examined colon appeared normal on direct and retroflexion views. The terminal ileum appeared normal. Biopsies for histology were taken with a cold forceps for evaluation of microscopic colitis. Impression: - Small Internal Hemorrhoids. - The entire colon is normal on direct and retroflexion views. - The examined portion of the ileum was normal. - Biopsies were taken with a cold forceps for evaluation of microscopic colitis. - (Irritable Bowel Syndrome/IBS suspected.) Recommendation: - Use fiber, for example Citrucel, Fibercon, Konsyl or Metamucil. - Use Bentyl (dicyclomine) 20 mg PO Q 4-6 hrs PRN 30 min AC. - Telephone endoscopist for pathology results in 2 weeks. - Consider a trial of Amitriptyline 10-25 mg po QHS for Irritable bowel syndrome.(IBS-D) Procedure Code(s): --- Professional --- 95498, Colonoscopy, flexible; with biopsy, single or multiple Diagnosis Code(s): --- Professional --- K58.0, Irritable bowel syndrome with diarrhea K58.9, Irritable bowel syndrome without diarrhea CPT copyright 2019 [employer] [employer]. All rights reserved. The codes documented in this report are preliminary and upon cotton stomper review may be revised to meet current compliance requirements. Naif Aguirre MD Naif Aguirre MD 10/21/2020 8:38:50 AM Electronically signed by Naif Aguirre MD Number of Addenda: 0 Note Initiated On: 10/21/2020 8:11 AM Estimated Blood Loss: Estimated blood loss: none.
[2020-10-21 09:05] VITALS: BP 113/59
== END 2020-10-21 09:10 | disposition home or self-care (01) ==
LOC: M OPP 07:20
PROVIDERS: ATTEND Internal Medicine Gastroenterology
DX: K58.0 Irritable bowel syndrome with diarrhea (principal); R19.7 Diarrhea, unspecified; R10.9 Unspecified abdominal pain; D12.6 Benign neoplasm of colon, unspecified; K64.8 Other hemorrhoids; K21.9 Gastro-esophageal reflux disease without esophagitis; F41.9 Anxiety disorder, unspecified; F32.9 Major depressive disorder, single episode, unspecified; G25.81 Restless legs syndrome; F90.9 Attention-deficit hyperactivity disorder, unspecified type; K44.9 Diaphragmatic hernia without obstruction or gangrene; F17.210 Nicotine dependence, cigarettes, uncomplicated; Z88.0 Allergy status to penicillin; Z88.1 Allergy status to other antibiotic agents; Z79.899 Other long term (current) drug therapy; Z80.1 Family history of malignant neoplasm of trachea, bronchus and lung; Z80.8 Family history of malignant neoplasm of other organs or systems

== ENCOUNTER → 2021-07-02 | Outpatient (CLI) | payer OTHER ==
[~2021-07-02] MED LIST changes: +DEBL1TAB PO; -FLUO10CA16 PO; +FLUO10CA18 PO; -NS 1,000 ML IV ONE; +OMEP-173; -OMEP-218
== END ==
LOC: M WHC 13:49
PROVIDERS: ATTEND Family Medicine
DX: N83.201 Unspecified ovarian cyst, right side (principal)

== ENCOUNTER 2021-07-05 08:38 | Emergency (ER) | payer OTHER ==
[2021-07-05 08:58] VITALS: O2SAT 97
[2021-07-05] MEDS ORDERED: VITA200032 PO (09:09)
[2021-07-05] MEDS ORDERED: ACET300T48 PO (09:09)
[2021-07-05] MEDS ORDERED: BENZ200C70 PO (10:06)
[2021-07-05 10:27] VITALS: BP 152/76
== END 2021-07-05 10:20 | disposition home or self-care (01) ==
LOC: M ED 08:38 → EDBD 08:38 → M ED 10:20
DX: U07.1 COVID-19 (principal); J45.909 Unspecified asthma, uncomplicated; Z79.899 Other long term (current) drug therapy; Z88.0 Allergy status to penicillin; Z88.1 Allergy status to other antibiotic agents

== ENCOUNTER 2021-08-04 14:09 | Emergency (ER) | payer OTHER ==
[~2021-08-04] VITALS: Ht 167.6 cm; Wt 109.9 kg
[~2021-08-04 14:09] MED LIST changes: +ACET300T48 PO; -DICL1GEL TD; +DICL3GEL2 TD; +VITA200032 PO
[2021-08-04 14:17] VITALS: BP 125/59
[2021-08-04 15:31] LABS: BASO # 0.1 10^3/uL (0.0-0.2); BASO % 0.5 % (0.0-1.0); EOS # 0.1 10^3/uL (0.0-0.5); EOS % 0.4 % (0.0-3.0); HEMATOCRIT 43.3 % (36.0-47.0); HEMOGLOBIN 14.8 g/dl (12.0-15.5); LYMPH # 2.7 10^3/uL (1.5-5.0); LYMPH % 16.4 % (24.0-44.0); MEAN CORPUSCULAR HEMOGLOBIN 29.5 pg (27.0-33.0); MEAN CORPUSCULAR HGB CONC 34.2 g/dl (32.0-36.5); MEAN CORPUSCULAR VOLUME 86.4 fl (80.0-96.0); MONO # 1.1 10^3/uL (0.0-0.8); MONO % 6.6 % (2.0-8.0); NEUTROPHILS # 12.5 10^3/uL (1.5-8.5); NEUTROPHILS % 75.4 % (36.0-66.0); PLATELET COUNT, AUTOMATED 361 10^3/uL (150-450); RED BLOOD COUNT 5.01 10^6/uL (4.00-5.40); WHITE BLOOD COUNT 16.6 10^3/uL (4.0-10.0)
[2021-08-04 15:50] LABS: HCG, SERUM QUALITATIVE NEGATIVE (NEGATIVE)
[2021-08-04 15:52] LABS: ALBUMIN 3.6 GM/DL (3.2-5.2); ALT/SGPT 18 U/L (12-78); BILIRUBIN,DIRECT 0.2 MG/DL (0.0-0.2); BILIRUBIN,TOTAL 0.7 MG/DL (0.2-1.0); BLOOD UREA NITROGEN 11 MG/DL (7-18); CALCIUM LEVEL 10.1 MG/DL (8.5-10.1); CARBON DIOXIDE LEVEL 25 MEQ/L (21-32); CHLORIDE LEVEL 107 MEQ/L (98-107); CREATININE FOR GFR 0.71 MG/DL (0.55-1.30); GLOMERULAR FILTRATION RATE > 60.0 (>60); GLUCOSE, FASTING 85 MG/DL (70-100); LIPASE 126 U/L (73-393); POTASSIUM SERUM 4.1 MEQ/L (3.5-5.1); SODIUM LEVEL 140 MEQ/L (136-145); TOTAL PROTEIN 7.1 GM/DL (6.4-8.2)
[2021-08-04] MEDS ORDERED: ONDANSETRON 4MG/2ML VIAL IV ONE (19:50)
[2021-08-04] MEDS ORDERED: KETOROLAC 30 MG/ML 1ML VIAL IV ONE (19:50)
[2021-08-04] MEDS ORDERED: NS 1,000 ML IV ONE (19:50)
[2021-08-04] MEDS ORDERED: ISOVUE-370 76% 100ML VIAL As Ordered ONE (19:52)
== END 2021-08-04 21:40 | disposition home or self-care (01) ==
LOC: EDBD 14:09 → M ED 14:09
DX: R10.11 Right upper quadrant pain (principal); Z79.899 Other long term (current) drug therapy; Z88.0 Allergy status to penicillin; Z88.1 Allergy status to other antibiotic agents
CPT/HCPCS: 74177; 80048; 80076; 81001; 83690; 84703; 85025; 87086; 96361; 96374; 96375; 99284; J1885; J2405; Q9967

== ENCOUNTER → 2021-09-04 | Outpatient (CLI) | payer OTHER ==
[~2021-09-04] MED LIST changes: +ALBU2.5V10 INH; +ALBU2.5V10 NEB; -ALBU83IN INH; -ALBU83IN NEB
[2021-09-04 15:54] LABS: BASO % 0.3 % (0.0-1.0); EOS # 0.1 10^3/uL (0.0-0.5); EOS % 0.7 % (0.0-3.0); HEMATOCRIT 45.3 % (36.0-47.0); HEMOGLOBIN 15.1 g/dl (12.0-15.5); LYMPH # 3.1 10^3/uL (1.5-5.0); LYMPH % 29.6 % (24.0-44.0); MEAN CORPUSCULAR HEMOGLOBIN 29.7 pg (27.0-33.0); MEAN CORPUSCULAR HGB CONC 33.3 g/dl (32.0-36.5); MONO # 0.6 10^3/uL (0.0-0.8); MONO % 5.6 % (2.0-8.0); NEUTROPHILS # 6.6 10^3/uL (1.5-8.5); NEUTROPHILS % 63.2 % (36.0-66.0); PLATELET COUNT, AUTOMATED 334 10^3/uL (150-450); RED BLOOD COUNT 5.09 10^6/uL (4.00-5.40); WHITE BLOOD COUNT 10.4 10^3/uL (4.0-10.0)
[2021-09-04 16:06] LABS: ALBUMIN 3.5 GM/DL (3.2-5.2); ALT/SGPT 19 U/L (12-78); BILIRUBIN,TOTAL 0.4 MG/DL (0.2-1.0); BLOOD UREA NITROGEN 7 MG/DL (7-18); CALCIUM LEVEL 8.5 MG/DL (8.5-10.1); CARBON DIOXIDE LEVEL 29 MEQ/L (21-32); CHLORIDE LEVEL 107 MEQ/L (98-107); CREATININE FOR GFR 0.85 MG/DL (0.55-1.30); GLOMERULAR FILTRATION RATE > 60.0 (>60); GLUCOSE, FASTING 70 MG/DL (70-100); POTASSIUM SERUM 4.4 MEQ/L (3.5-5.1); SODIUM LEVEL 140 MEQ/L (136-145); TOTAL PROTEIN 6.8 GM/DL (6.4-8.2)
== END ==
LOC: M PLALAB 13:53
PROVIDERS: ATTEND Physician Assistant
DX: R50.9 Fever, unspecified (principal); R09.81 Nasal congestion

== ENCOUNTER → 2021-11-10 | Outpatient (CLI) | payer OTHER | LOC: M RAD 06:32 | PROVIDERS: ATTEND Internal Medicine Gastroenterology | DX: K76.0 Fatty (change of) liver, not elsewhere classified (principal); R12 Heartburn; K82.8 Other specified diseases of gallbladder ==